=== PATIENT | female | born 1995 | race Caucasian/White ===

== ENCOUNTER 2019-05-01 11:30 | Emergency (ER) | payer BC ==
[~2019-05-01] VITALS: Ht 162.6 cm; Wt 92.5 kg
[~2019-05-01 11:30] MED LIST: MYCOPHENOLIC A180 MG; NAPROSYN500 MG PO; TYLENOL EXTRA500 MG PO
--- OUTSIDE RECORDS SUMMARY | 2019-05-01 11:32 | XMS ---
PreManage Notification: [place] Security Fretted Instrument Maker Hand Events No recent Security Events currently on file CRITERIA MET - [facility] - 2 Visits in 30 Days CARE PROVIDERS JOHN HUTCHINSON Internal Medicine Current PHONE: Unknown [facility] Primary Care Current ADMINISTRATION PHONE: Unknown OUTSIDE PCP Primary Care Current PHONE: Unknown Comfort has no Care Guidelines for this patient. Brittaney VISIT COUNT (12 MO.) [address] [facility] [place] [facility] TOTAL 2 NOTE: Visits indicate total known visits. ED/UCC VISIT TRACKING (12 MO.) 05/01/2019 11:31 [facility] [place] TYPE: Emergency COMPLAINT: - BODY ACHES/BODY PAIN 04/10/2019 08:10 [facility] [place] TYPE: Emergency COMPLAINT: - BODY PAIN/NO INJURY DIAGNOSES: - Allergy status to narcotic agent status - Rheumatoid arthritis, unspecified - Allergy status to sulfonamides status - Allergy status to penicillin - Systemic lupus erythematosus, unspecified - Pain, unspecified - Pain in unspecified joint INPATIENT VISIT TRACKING (12 MO.) No inpatient visits to display in this time frame [email or web address]
[2019-05-01] MEDS ORDERED: PREDNISONE20 MG PO (11:54)
== END 2019-05-01 12:20 | disposition home or self-care (01) ==
LOC: ED 11:30
DX: M19.90 Unspecified osteoarthritis, unspecified site (principal); M32.9 Systemic lupus erythematosus, unspecified; Z88.0 Allergy status to penicillin; Z88.5 Allergy status to narcotic agent; Z88.2 Allergy status to sulfonamides
CPT/HCPCS: 96372; 99283-25; J1885; J7512

== ENCOUNTER 2019-10-07 03:59 | Emergency (ER) | payer BC, OTHER ==
[~2019-10-07] VITALS: Ht 162.6 cm; Wt 92.5 kg
--- OUTSIDE RECORDS SUMMARY | ~2019-10-07 | XMS | Encounter Summary ---
Demographics + + + | Address | [address] | | | [place] [address] | + + + | Home Phone | | + + + | Preferred Language | Unknown | + + + | Marital Status | | + + + | Rastafari Affiliation | Unknown | + + + | Race | Unknown | + + + | Ethnic Group | Unknown | + + + Author + + + | Author | [facility] | | | and [place] | + + + | Organization | [facility] | | | and [place] | + + + | Address | Unknown | + + + | Phone | Unavailable | + + + Support + + +---------+ + | Name | Relationship | Address | Phone | + + +---------+ + | Marco Berman | ECON | Unknown | | + + +---------+ + Care Team Providers + +------+ + | Care Building Services Coordinator Name | Role | Phone | + +------+ + | Eric Bhatti DO | PCP | | + +------+ + Reason for Visit Evaluate & Treat (Routine) +--------+--------+ + + + + | Status | Reason | Specialty | Diagnoses / | Referred By | Referred To | | | | | Procedures | Contact | Contact | +--------+--------+ + + + + | Closed | | | Diagnoses | Magy, | Cristian Wallace | | | | | Glomerular | DO Eric | MD [address] | | | | | disease in | [address] [place] | | | | | systemic | [address] | [address] | | | | | lupus | [address] | [place], [place] | | | | | erythematosu | [place], | [address] | | | | | s ([facility]) | [place] | Phone: | | | | | | [address] | [phone] | | | | | | Phone: | Fax: | | | | | | [phone] | [phone] | | | | | | Fax: | | | | | | | [phone] | | +--------+--------+ + + + + Encounter Details +--------+---------+ + + + | Date | Type | Department | Care Team | Description | +--------+---------+ + + + | 06/30/ | Office | [facility] | Cristian Wallace MD | Lupus nephritis, | | 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 | | | | [address] | [address] [facility] [place] | ([facility]); Persistent | | | | [address] | [address] | proteinuria; | | | | [place], [place] | | Microscopic | | | | [address] | | hematuria; Other | | | | [phone] | | neutropenia ([facility]) | +--------+---------+ + + + Social History + +-------+ [...] + + documented as of this encounter Patient Instructions Patient Instructions Cristian Wallace MD - 06/30/2019 9:50 AM PDTDiscussions/Recommendations : I discussed today with Ms. Berman the meaning of her CKD and the interaction of that with her SLE. She is to call us if they fall outside of the optimal provided range. She will bring he r sphygmomanometer for validation once a year. She will strictly abide by a low salt diet and will avoid all kinds of NSAIDs for analge urbano. Screening/Prevention Recommendations: FLU SHOT: MARTELL PNEUMOVAX: In 08/2019 Tdap: 2013 DERMATOLOGY: SPF 50 or above with every exposure to sun DEXA SCAN: No need now (no fci steroid use) COLONOSCOPY: N/A now DENTIST: every 6 months LEAD OXIDE MILL TENDER/MAMMOGRAM: yearly Also: I decreased her Myfortic to 360 mg twice a day (leucopenia from 9K to 3K now; ANC 1.7). I will consider RAAS blockade soon. She understands the risks of using meds to fetus; she states she will tell us when pregn tj is being considered. I sent her for a repeat CBC in 2 weeks. I sent her for the Flu shot this week. She will continue to F/U with your office regularly. She will have a BMP, CBC, rU/A, UTPCR before she comes back in 3 months. documented in this encounter Progress Notes Cristian Wallace MD - 06/30/2019 9:50 AM PDT There is no problem list on file for this patient. Dear Dr Bhatti: Thank you for the opportunity to see Ms. Berman in consult today. As you are familiar with her case, I will not state her past history in detail. Briefly, she is a 23 y.o. female pat ient with past history as delineated above. she is here to be evaluated for her proteinuria . She was diagnosed with SLE 2010. At that time, she was found to have a severely depressed ( in the stage IV range). She was biopsied: class IV lupus nephritis. Per notes from the Rheum atology team that I reviewed: "Patient had a positive MARCO, anti-DNA, low complement. Symptom s included arthritis, nephritis and cerebritis. Patient tried prednisone, hydroxychloroquine , cyclophisphamide, mycophenolate and rituxan." The patient has history of SLE. she denies any history of prolonged exposure to NSAIDs or r ecent exposure to known nephrotoxins. she denies any recurrent nephrolithiasis or pyelonephr itis. she tells me that she's had no history of urinary retention, gross hematuria or dysuri a. she has no incontinence symptoms. No symptoms of UTI. she has 1 nightly nocturia. No hi story of passing kidney stones. she has no foamy urine either. her baseline Creatinine is 0. 7. There is no family history of renal genetic diseases such as PKD. she says that she feels 'good ' today. she denies any blurred vision tinnitus, headache, f ever, chills, or cough. No nausea, vomiting, abdominal pain, diarrhea, melena, or hematoche deangelo. No chest pain, palpitation, dizziness, loss of consciousness, orthopnea, paroxysmal no cturnal dyspnea, or leg edema. The following portions of the patient's history were reviewed and updated as appropriate: a llergies, current medications, past medical history, past social history, past surgical hist ory, family history and problem list. I also reviewed with her the records received from you r office; these were very informative. As in History of Present Illness & in Assessment. All the twelve systems were reviewed and were otherwise negative. Current Outpatient Medications Medication Sig Dispense Refill cholecalciferol (VITAMIN D-3) 2000 units TABS Take 2,000 Units by mouth Daily. hydroxychloroquine (PLAQUENIL) 200 mg tablet Take by mouth Daily. magnesium, as oxide, 250 MG tablet Take 250 mg by mouth 2 times daily. mycophenolate (MYFORTIC) [address] tablet 360 mg. predniSONE (DELTASONE) 20 mg tablet Take by mouth Daily. pyridoxine (PYRIDOXINE) 100 mg tablet Take by mouth. No current facility-administered medications for this visit. Physical Exam: There were no vitals taken for this visit. General appearance: Pleasant, not in acute distress. Neck: Supple without tracheal deviation or jugular venous distension. Head and ENT: Head is atraumatic. The oropharynx is without erythema or thrush. Eyes: Anicteric. The extraocular muscle movements are normal. Lungs: Clear to auscultation bilaterally. There are no wheezes. Heart: Regular rate and rhythm without any rub, gallop. No murmur. Abdominal exam: Soft and nontender with normal bowel sounds. Musculoskeletal: No costovertebral angle tenderness bilaterally. Extremities: Warm to touch with no leg edema. There is no cyanosis. Skin: There are no rashes, petechiae, or ecchymosis. Neurological: Awake, alert, and oriented to time, place, and person. Normal gross motor po wer. There is no asterixis. Psychiatric: The patient s behavior is normal. Judgment and thought content are normal. Lab Results Component Value Date BUN 9 06/26/2019 NA 141 06/26/2019 K 4.0 06/26/2019 CL 104 06/26/2019 CO2 26 06/26/2019 URICACID 4.6 06/26/2019 CALCIUM 8.9 06/26/2019 ALBUMIN 3.8 05/05/2019 Assessment: Ms. Berman is a 23 y.o. female patient with stage I CKD on a background of SLE. She was bio psied: class IV lupus nephritis. Per notes from the Rheumatology team that I reviewed: "Elinor ent had a positive MARCO, anti-DNA, low complement. Symptoms included arthritis, nephritis and cerebritis. Patient tried prednisone, hydroxychloroquine, cyclophisphamide, mycophenolate a nd rituxan." She has history of lupus nephritis and DIAL MOUNTER lupus. She had a DIAL MOUNTER lupus flare in 2014, improved with a ramped up immunotherapy regimen. She had a lupus flare (arthritis) in 05/2019 improved with a high dose Prednisone course. Had a UTI late May; resolved. RENAL FUNCTION: Normal GFR BLOOD PRESSURE: Reports it normal BLOOD SUGAR: Reports it normal ELECTROLYTES: normal ANEMIA: None. Has leucopenia PARATHYROID HORMONE: No indication to check URIC ACID: okay PROTEINURIA: Mild now. Moderate in 05/2019 URINALYSIS: No UTI now; +ve microscopic hematuria VOLUME STATUS: Euvolumic. Discussions/Recommendations: I discussed today with Ms. Berman the meaning of her CKD and the interaction of that with her SLE. She is to call us if they fall outside of the optimal provided range. She will bring he r sphygmomanometer for validation once a year. She will strictly abide by a low salt diet and will avoid all kinds of NSAIDs for analge urbano. Screening/Prevention Recommendations: FLU SHOT: MARTELL PNEUMOVAX: In 08/2019 Tdap: 2012 DERMATOLOGY: SPF 50 or above with every exposure to sun DEXA SCAN: No need now (no fci steroid use) COLONOSCOPY: N/A now DENTIST: every 6 months LEAD OXIDE MILL TENDER/MAMMOGRAM: yearly Also: I decreased her Myfortic to 360 mg twice a day (leucopenia from 9K to 3K now; ANC 1.7). I will consider RAAS blockade soon. She understands the risks of using some meds to fetus; she states she will tell us when is being considered. I sent her for a repeat CBC in 2 weeks. I sent her for the Flu shot this week. She will continue to F/U with your office regularly. She will have a BMP, CBC, rU/A, UTPCR before she comes back in 3 months. More than 30 minutes of this 60-minute visit was spent in education and counseling. Thank you Dr Bhatti for the opportunity to see this patient in consult today. Please do not hesitate to call me at any time with questions or concerns. Truly yours, Cristian Wallace MD [facility] documented in this enco unter Plan of Treatment +--------+---------+ + + + | Date | Type | Specialty | Care Team | Description | +--------+---------+ + + + | 10/20/ | Office | Rheumatology | Genevieve Hudson | | | 2018 | Visit | | KITTY Hansen [address] | | | | | | [facility] | | | | | | [facility] [address] | | | | | | [phone] | | | | | | | | +--------+---------+ + + + | 11/10/ | Office | Nephrology | Cristian Wallace MD | | | 2019 | Visit | | [address] [facility] | | | | | | [address] [place] | | | | | | [address] | | | | | | | | +--------+---------+ + + + documented as of this encounter Procedures + +--------+ + + + | Procedure Name | Priori | Date/Time | Associated Diagnosis | Comments | | | ty | | | | + +--------+ + + + | LABS - EXTERNAL SCAN | | 06/26/2019 | | Results for this | | | | 12:00 AM | | procedure are in the | | | | PDT | | results section. | + +--------+ + + + documented in this encounter Results LABS - EXTERNAL SCAN (06/26/2019 12:00 AM PDT) + + + | Narrative | Performed At | + + + | Ordered by an | | | unspecified provider. | | + + + documented in this encounter Visit Diagnoses + + | Diagnosis | + + | Lupus nephritis, ISN/RPS class IV (HCC) | + + | Persistent proteinuria Proteinuria | + + | Microscopic hematuria | + + | Other neutropenia (HCC) Other neutropenia | + + documented in this encounter
--- OUTSIDE RECORDS SUMMARY | ~2019-10-07 | XMS | Encounter Summary ---
Demographics + + + | Address | [address] | | | [place] [address] | + + + | Home Phone | | + + + | Preferred Language | Unknown | + + + | Marital Status | | + + + | Cheondoism Affiliation | Unknown | + + + | Race | Unknown | + + + | Ethnic Group | Unknown | + + + Author + + + | Author | [facility] | | | and [place] | + + + | Organization | [facility] | | | [...] Team Providers + +------+ + | Care Assistant Manager Name | Role | Phone | + +------+ + | Eric Bhatti DO | PCP | | + +------+ + Reason for Visit +--------+ + | Reason | Comments | +--------+ + | Pain | | +--------+ + Encounter Details +--------+ + + + + | Date | Type | Department | Care Team | Description | +--------+ + + + + | 09/17/ | Telephone | [facility] | Felipa Stuart, | Pain | | 2019 | | RHEUMATOLOGY [address] | [address] | | | | | [address] | | | | | | [place] | | | | | | [address] | | | | | | [phone] | | | +--------+ + + + + Social History + +-------+ +--------+------+ | Tobacco Use | Types | Packs/Day | Years | Date | | | | | Used | | + +-------+ +--------+------+ | Never Smoker | | | | | + +-------+ +--------+------+ + +---+---+---+ | Smokeless Tobacco: | | | | | Never Used | | | | + +---+---+---+ + + +---------+ + | Alcohol Use | Drinks/Week | oz/Week | Comments | + + +---------+ + | Never | | | | + + +---------+ + + + + + | Alcohol Habits | Answer | Date Recorded | + + + + | How often do you have a drink containing | Never | 07/18/2019 | | alcohol? | | | + + + + | How many drinks containing alcohol do you | Not asked | | | have on a typical day when you are | | | | drinking? | | | + + + + | How often do you have six or more drinks on | Not asked | | | one occasion? | | | + + + + + + + | Sex Assigned at [...] [address] | | | | | | [facility] | | | | | | [place] [address] | | | | | | [phone] | | | | | | | | +--------+---------+ + + + | 11/10/ | Office | Nephrology | Cristian Wallace MD | | | 2019 | Visit | | [address] [facility] | | | | | | [address] [place] | | | | | | [address] | | | | | | | | +--------+---------+ + + + documented as of this encounter Visit Diagnoses Not on filedocumented in this encounter"
--- OUTSIDE RECORDS SUMMARY | ~2019-10-07 | XMS | Encounter Summary ---
Demographics + + + | Address | [address] | | | [place] [address] | + + + | Home Phone | | + + + | Preferred Language | Unknown | + + + | Marital Status | | + + + | Mandaen Affiliation | Unknown | + + + | Race | Unknown | + + + | Ethnic Group | Unknown | + + + Author + + + | Author | [facility] | | | and [place] | + + + | Organization | [facility] | | | and [...] Team Providers + +------+ + | Care Turntable Engineer Name | Role | Phone | + +------+ + | Eric Bhatti DO | PCP | | + +------+ + Reason for Visit +--------+ + | Reason | Comments | +--------+ + | Pain | | +--------+ + Encounter Details +--------+ + + + + | Date | Type | Department | Care Team | Description | +--------+ + + + + | 08/20/ | Telephone | [facility] | Tracie Brizuela, | Pain | | 2019 | | RHEUMATOLOGY [address] | [address] | | | | | [address] | | | | | | [place] | | | | | | [address] | | | | | | [phone] | | | +--------+ + + + [...] W | | | | | | [facility] | | | | | | [place] [address] | | | | | | [phone] | | | | | | | | +--------+---------+ + + + | 11/10/ | Office | Nephrology | Cristian Wallace MD | | | 2019 | Visit | | [address] [facility] | | | | | | [address] [place] | | | | | | [address] | | | | | | | | +--------+---------+ + + + documented as of this encounter Visit Diagnoses Not on filedocumented in this encounter"
--- OUTSIDE RECORDS SUMMARY | ~2019-10-07 | XMS | Encounter Summary ---
Demographics + + + | Address | [address] | | | [place] [address] | + + + | Home Phone | | + + + | Preferred Language | Unknown | + + + | Marital Status | | + + + | Taoist Affiliation | Unknown | + + + | Race | Unknown | + + + | Ethnic Group | Unknown | + + + Author + + + | Author | [facility] | | | and [place] | + + + | Organization | [facility] | | | [...] Team Providers + +------+ + | Care Developmental Specialist Name | Role | Phone | + [...] + + | 06/25/ | Telephone | [facility] | Cristian Wallace MD | Other | | 2019 | | NEPHROLOGY [place] | [address] [place] | | | | | [address] [place] | [address] [place], [place] | | | | | [address] [place], [place] | [address] | | | | | [address] | | | | | | [phone] | | | +--------+ + + + [...] | | | | | | [facility] | | | | | | [place] [address] | | | | | | [phone] | | | | | | | | +--------+---------+ + + + | 11/10/ | Office | Nephrology | Cristian Wallace MD | | | 2019 | Visit | | [address] | | | | | | [facility] | | | | | | [address] | | | | | | | | +--------+---------+ + + + documented as of this encounter Visit Diagnoses Not on filedocumented in this encounter"
--- OUTSIDE RECORDS SUMMARY | ~2019-10-07 | XMS | Encounter Summary ---
Demographics + + + | Address | [address] | | | [place] [address] | + + + | Home Phone | | + + + | Preferred Language | Unknown | + + + | Marital Status | | + + + | Temple Affiliation | Unknown | + + + | Race | Unknown | + + + | Ethnic Group | Unknown | + + + Author + + + | Author | [facility] | | | and [place] | + + + | Organization | [facility] | | [...] Team Providers + +------+ + | Care Emergency Room Doctor Name | Role | Phone | + +------+ + | Eric Bhatti DO | PCP | | + +------+ + Reason for Visit +--------+ + | Reason | Comments | +--------+ + | Other | Urine concerns | +--------+ + Encounter Details +--------+ + + + + | Date | Type | Department | Care Team | Description | +--------+ + + + + | 08/20/ | Telephone | [facility] | Marcial, | Other (Urine | | 2019 | | NEPHROLOGY [place] | Zara Waterman | concerns) | | | | [address] [place] | Vice President [employer] Assurance | | | | | [address] [place], [place] | | | | | | [address] | | | | | | [phone] | | | +--------+ + + + [...] 2018 | Visit | | KITTY Hansen [address] | | | | | | [facility] | | | | | | [place] [address] | | | | | | [phone] | | | | | | | | +--------+---------+ + + + | 11/10/ | Office | Nephrology | Cristian Wallace MD | | | 2019 | Visit | | [address] [facility] | | | | | | [address] [place] | | | | | | [address] | | | | | | | | +--------+---------+ + + + documented as of this encounter Visit Diagnoses Not on filedocumented in this encounter"
--- OUTSIDE RECORDS SUMMARY | ~2019-10-07 | XMS | Encounter Summary ---
Demographics + + + | Address | [address] | | | [place] [address] | + + + | Home Phone | | + + + | Preferred Language | Unknown | + + + | Marital Status | | + + + | Evangelical Affiliation | Unknown | + + + [...] Team Providers + +------+ + | Care Client Support Consultant Name | Role | Phone | + [...] | lupus | [address] | [place] | | | | | erythematosu | [place], | [address] | | | | | s (HCC) | [place] | Phone: | | | | | Glomerular | [address] | [phone] | | | | | disease in | Phone: | Fax: | | | | | systemic | [phone] | [phone] | | | | | lupus | Fax: | | | | | | erythematosu | [phone] | | | | | | s (HCC) | | | + +--------+ + + + + Encounter Details +--------+---------+ + + + | Date | Type | Department | Care Team | Description | +--------+---------+ + + + | 08/25/ | Office | [facility] | Genevieve Hudson | SLE | | 2019 | Visit | R[address]UMATOLOGY [address] | [address] | glomerulonephritis | | | | [address] | [address] | syndrome (HCC) | | | | [place], [place] | [place] [address] | (Primary Dx); High | | | | [address] | [phone] | risk medication use; | | | | [phone] | | General counselling | | | [...] encounter Patient Instructions Patient Instructions Marco Blair, Team Member - 08/25/2019 2:10 PM PDTWe hop e that you have experienced exceptional care today and that you found our service to be cour teous and helpful. If you have any questions or need medication refills you can send us a message/request u [employer] or call our office at [phone]. To reach Zainab RIOS use ext [phone] To reach Marco RIOS use ext [phone] If you are unable to reach a [...] can also look at your results on [employer]. If you are experiencing an emergency, please [...] in 2011 in [place] then transferred to [facility] for [facility] . PT reports in middle school both [...] September 2013, when she established care at [facility], both CellCept and HCQ were restarted [...] SEDRATE Imaging: Laboratory results were reviewed in [facility] as well as chart notes and imaging [...] e YES Immunologic disorders Anti-DNA Antibody to [place] DNA in abnormal titer [place] Anti-Sm Presence [...] uremia, and Susie's syndrome YES Renal Urine fjeouei-ei-xafnjpjnns ratio (or 24-hour urine protein) representing 500 [...] treatment plan. Patient understands that treatment is intermediate and if patient fails to continue regimen [...] is both accurate and complete. Dictation software [employer]/dictation services used, which may contain error for [...] 2018 | Visit | | KITTY Hansen [address] | | | | | | [facility] | | | | | | [place] [address] | | | | | | [phone] | | | | | | | | +--------+---------+ + + + | 11/10/ | Office | Nephrology | Cristian Wallcae MD | | | 2019 | Visit | | [address] [facility] | | | | | | [address] [place], [place] | | | | | | [address] | | | | | | | [...]
--- OUTSIDE RECORDS SUMMARY | ~2019-10-07 | XMS | Encounter Summary ---
Demographics + + + | Address | [address] | | | [place] [address] | + + + | Home Phone | | + + + | Preferred Language | Unknown | + + + | Marital Status | | + + + | Methodist Affiliation | Unknown | + + + | Race | Unknown | + + + | Ethnic Group | Unknown | + + + Author + + + | Author | [facility] | | | and [place] | + + + | Organization | [facility] | | | and [...] Team Providers + +------+ + | Care Home Attendant Name | Role | Phone | + +------+ + | Eric Bhatti DO | PCP | | + +------+ + Encounter Details +--------+---------+ + + + | Date | Type | Department | Care Team | Description | +--------+---------+ + + + | 10/06/ | Office | [facility] | Cristian Wallace MD | SLE | | 2019 | Visit | NEPHROLOGY [place] | [address] [facility] [address] | glomerulonephritis | | | | [address] | [address] [place], [place] | syndrome (HCC) | | | | [address] | [address] | (Primary Dx); | | | | [place], [place] | | Systemic lupus | | | | [address] | | erythematosus with | | | | [phone] | | tubulo-interstitial | | | | | | nephropathy, | | | | | | unspecified SLE type | | | | | | (HCC); Microscopic | | | | | | hematuria; | | | | | | Persistent | | | | | | proteinuria; 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HCC); | | | | | | High risk medication | | | | | | use; | | | | | | Immunosuppressed | | | | | | status (HCC); | | | | | | 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 | | | | | | (HCC); General | | | | | | counselling and | | | | | | advice on | | | | | | contraception | +--------+---------+ + + + Social History [...] + + + | Blood Pressure | 102/70 | 10/06/2019 9:57 AM | | | | | PST | | + + + + + | Pulse | 98 | 10/06/2019 9:57 AM | | | | | PST | | + + + + + | Temperature | - | - | | + + + + + | Respiratory Rate | - | - | | + + + + + | Oxygen Saturation | 98% | 10/06/2019 9:57 AM | | | | | PST | | + + + + + | Inhaled Oxygen | - | - | | | Concentration | | | | + + + + + | Weight | 86 kg (189 lb 11.2 | 10/06/2019 9:57 AM | | | | oz) | PST | | + + + + + | Height | 165.1 cm (5' 5") | 10/06/2019 9:57 AM | | | | | PST | | + + + + + | Body Mass Index | 31.57 | 10/06/2019 9:57 AM | | | | | PST | | + + + + + documented in this encounter Patient Instructions Patient Instructions Cristian Wallace MD - 10/06/2019 10:00 AM PSTScreening/Prevention Recomm endations: FLU SHOT: MARTELL PNEUMOVAX: MARTELL Tdap: 2013 DERMATOLOGY: SPF 50 or above with every exposure to sun DEXA SCAN: No need now (no detention steroid use yet) COLONOSCOPY: N/A now DENTIST: every 6 months LIBRARY CIRCULATION CLERK/MAMMOGRAM: yearly Also: I stopped her Naproxen. I sent her a repeat C3, C4, CH50, lipids, UTPCR in AM. I sent her for a repeat BMP, CBC in 1 week. [If she's not going to require another kidney biopsy, I plan to have her on: Methylprednisolone 500 mg IV over 30 minutes x3 days Then Prednisone 60 mg daily to be tapered very slowly over many months Cyclophosphamide 500 mg IV every 2 weeks x6 weeks (she had used it in 2010 & understands its side effects)] I kept her Myfortic at 360 mg twice a day for now (leucopenia from 9K to 3K in 06/2019, ANC was 1.7). she will need to be off of it during the Cyclophosphamide course. I started her on Losartan 25 mg daily for now. She will have a repeat BMP within 1 week to specifically F/U on her potassium level & GFR. She understands well that such a medication m ay temporarily lower the GFR by up to 30% after starting it. She understands the risks of hy potension, hyperkalemia & hemodynamic renal injury from its use. She also understands the ri sks of using RAAS blockers, like Losartan, in the setting of volume depletion. She understands the risks of using the above meds to fetus; she states she will tell us when is being considered. I sent her for the Flu & Pneumovax shots MARTELL. She will F/U with your office regularly. She will have a BMP, CBC, C3, C4, rU/A, UTPCR before she comes back in 1 month. 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 Berman in the office today. As you are familiar with her case, I january l not state her past history in detail. Briefly, she is a 23 y.o. female patient with past history as delineated above. she is here to F/U on her proteinuria. She was diagnosed with SLE 2010. At that time, she was found to have a severely depressed G FR (in the stage IV range, she tells me). She was biopsied: class IV lupus nephritis. Per no misael from the Rheumatology team that I reviewed: "Patient had a positive MARCO, anti-DNA, low c omplement. Symptoms included arthritis, nephritis and cerebritis. Patient tried prednisone, hydroxychloroquine, cyclophisphamide, mycophenolate and rituxan." The patient has history of SLE; she denies any history of prolonged exposure to NSAIDs or r ecent exposure to known nephrotoxins. she denies any recurrent nephrolithiasis or pyelonephr itis; she tells me that she's had no [...] she says that she feels 'good ' today; she denies any blurred vision tinnitus, headache, [...] hist ory, family history and problem list. As in History of Present Illness & in Assessment. All the pertinent systems were reviewed a nd were otherwise negative. Current Outpatient Medications: cholecalciferol (VITAMIN D-3) 2000 units TABS, Take 2,000 Units by mouth Daily., Disp: , Rfl: Cyanocobalamin (VITAMIN B 12 PO), Take by mouth., Disp: , Rfl: hydroxychloroquine (PLAQUENIL) 200 mg tablet, Take 1 tablet by mouth 2 times daily., D isp: 60 tablet, Rfl: 2 magnesium, as oxide, 250 MG tablet, Take 250 mg by mouth 2 times daily., Disp: , Rfl: mycophenolate (MYFORTIC) [address] tablet, Take 1 tablet by mouth 2 times daily., Disp : 60 tablet, Rfl: 2 naproxen (NAPROSYN) 500 mg tablet, Take 500 mg by mouth 2 times daily (with breakfast & dinner)., Disp: , Rfl: predniSONE (DELTASONE) 5 mg 21-tablet pack, Take 2 tabs x 7 days, take 1 tab x 7 days, Disp: 21 tablet, Rfl: 0 Physical Exam: BP 102/70 | Pulse 98 | Ht 1.651 m (5' 5") | Wt 86 kg (189 lb 11.2 oz) | SpO2 98% | BMI 31.57 kg/m General appearance: Pleasant, not in acute distress. [...] are normal. Lab Results Component Value Date HGB 11.5 (A) 10/01/2019 HGB 13.2 07/21/2019 HCT 39.4 07/21/2019 NA 141 10/01/2019 K 4.0 10/01/2019 CL 106 10/01/2019 CO2 28 10/01/2019 BUN 14 10/01/2019 CREA 0.79 10/01/2019 CREA 0.67 06/26/2019 CALCIUM 7.8 (A) 10/01/2019 CALCIUM 8.7 07/21/2019 ALBUMIN 3.6 07/21/2019 EGFR 89.0 10/01/2019 LABPROT 5,625.4 (A) 10/01/2019 Assessment: Ms. Berman is a 23 y.o. female patient with stage I CKD on a background of SLE. She was bio psied in 2010: class IV lupus nephritis. Per notes from the Rheumatology team that I reviewe d: "Patient had a positive MARCO, anti-DNA, low complement. Symptoms included arthritis, nephr itis and cerebritis. 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 She had a lupus flare (arthritis) in 05/2019 improved with a high dose Prednisone course. Had a UTI late May; resolved. RENAL FUNCTION: Normal GFR BLOOD PRESSURE: Reports it normal BLOOD SUGAR: Reports it normal ELECTROLYTES: normal ANEMIA: None. Has leucopenia PARATHYROID HORMONE: No indication to check URIC ACID: okay PROTEINURIA: Mild in 06/2019. Moderate in 05/2019. Now severe: in the nephrotic range. URINALYSIS: No UTI now; +ve microscopic hematuria VOLUME STATUS: Euvolumic. Discussions/Recommendations: I discussed today with Ms. Berman the meaning of her CKD and the interaction of that with her SLE. She is to call us if they fall outside of the optimal provided range. She will bring he r sphygmomanometer for validation once a year. She will strictly abide by a low salt diet. She will avoid all kinds of NSAIDs for analgesia. Screening/Prevention Recommendations: FLU SHOT: MARTELL PNEUMOVAX: MARTELL Tdap: 2012 DERMATOLOGY: SPF 50 or above with every exposure to sun DEXA SCAN: No need now (no detention steroid use yet) COLONOSCOPY: N/A now DENTIST: every 6 months LIBRARY CIRCULATION CLERK/MAMMOGRAM: yearly Also: I stopped her Naproxen. I sent her a repeat C3, C4, CH50, lipids, UTPCR in AM. I sent her for a repeat BMP, CBC in 1 week. [If she's not going to require another kidney biopsy, I plan to have her on: Methylprednisolone 500 mg IV over 30 minutes x3 days Then Prednisone 60 mg daily to be tapered very slowly over many months Cyclophosphamide 500 mg IV every 2 weeks x6 weeks (she had used it in 2010 & understands its side effects)] I kept her Myfortic at 360 mg twice a day for now (leucopenia from 9K to 3K in 06/2019, ANC was 1.7). she will need to be off of it during the Cyclophosphamide course. I started her on Losartan 25 mg daily for now. She will have a repeat BMP within 1 week to specifically F/U on her potassium level & GFR. She understands well that such a medication m ay temporarily lower the GFR by up to 30% after starting it. She understands the risks of hy potension, hyperkalemia & hemodynamic renal injury from its use. She also understands the ri sks of using RAAS blockers, like Losartan, in the setting of volume depletion. She understands the risks of using the above meds to fetus; she states she will tell us when is being considered. I sent her for the Flu & Pneumovax shots MARTELL. She will F/U with your office regularly. She will have a BMP, CBC, C3, C4, rU/A, UTPCR before she comes back in 1 month. More than 20 minutes of this 40-minute visit was spent in education and counseling. Thank you Dr Bhatti for the opportunity to see this patient in F/U today. Please do not hes itate to call me at any time with questions or concerns. Truly yours, Cristian Wallace MD FACP LUDY GRICELDA documented in this enco unter Plan of Treatment +--------+---------+ + + + | Date | Type | Specialty | Care Team | Description | +--------+---------+ + + + | 10/20/ | Office | Rheumatology | Genevieve Hudson | | | 2018 | Visit | | KITTY [address] | | | | | | [facility] | | | | | | [place] [address] | | | | | | [phone] | | | | | | | | +--------+---------+ + + + | 11/10/ | Office | Nephrology | Cristian Wallace MD | | | 2019 | Visit | | [address] [facility] | | | | | | [address] [place], [place] | | | | | | [address] | | | | | | | | +--------+---------+ + + + documented as of this encounter Visit Diagnoses + + | Diagnosis | + + | SLE glomerulonephritis syndrome (HCC) - Primary Systemic lupus erythematosus | + + | 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
--- OUTSIDE RECORDS SUMMARY | ~2019-10-07 | XMS | Encounter Summary ---
Demographics + + + | Address | [address] | | | [place] [address] | + + + | Home Phone | | + + + | Preferred Language | Unknown | + + + | Marital Status | | + + + | Yazidism Affiliation | Unknown | + + + | Race | Unknown | + + + | Ethnic Group | Unknown | + + + Author + + + | Author | [facility] | | | and [place] | + + + | Organization | [facility] | | [...] Team Providers + +------+ + | Care Drum Handler Name | Role | Phone | + [...] + + | 09/17/ | Telephone | [facility] | Felipa Stuart, | Pain | | 2019 | | R[address]UMATOLOGY [address] | [address] | | | | | [address] | | | | | | [place] | | | | | | [address] | | | | | | [phone] | | | +--------+ + + + [...] HOSPITAL | | | | | | [place] [address] | | | | | | [phone] | | | | | | | | +--------+---------+ + + + | 11/10/ | Office | Nephrology | Cristian Wallace MD | | | 2019 | Visit | | [address] [facility] | | | | | | [address] [place] | | | | | | [address] | | | | | | | | +--------+---------+ + + + documented as of this encounter Visit Diagnoses Not on filedocumented in this encounter"
--- OUTSIDE RECORDS SUMMARY | ~2019-10-07 | XMS | Encounter Summary ---
Demographics + + + | Address | [address] | | | [place] [address] | + + + | Home Phone | | + + + | Preferred Language | Unknown | + + + | Marital Status | | + + + | Confucianism Affiliation | Unknown | + + + | Race | Unknown | + + + | Ethnic Group | Unknown | + + + Author + + + | Author | [facility] | | | and [place] | + + + | Organization | [facility] | | | [...] Team Providers + +------+ + | Care Escrow Representative Name | Role | Phone | + +------+ + | Eric Bhatti DO | PCP | | + +------+ + Encounter Details +--------+ + + + + | Date | Type | Department | Care Team | Description | +--------+ + + + + | 06/24/ | Orders Only | [facility] | Cristian Wallace MD | Proteinuria, | | 2018 | | [facility] [place] | [address] [place] | unspecified type | | | | [address] [place] | [address] [place], [place] | (Primary Dx); Lupus | | | | [address] [place], [place] | [address] | nephritis (HCC) | | | | [address] | | | | | | [phone] | | | +--------+ + + + + Social History + +-------+ +--------+------+ | Tobacco Use | Types | Packs/Day | Years | Date | | | | | Used | | + +-------+ +--------+------+ | Never Assessed | | | | | + +-------+ [...] | | | | | | [facility] | | | | | | [place] [address] | | | | | | [phone] | | | | | | | | +--------+---------+ + + + | 11/10/ | Office | Nephrology | Cristian Wallace MD | | | 2019 | Visit | | [address] [facility] | | | | | | [address] [place] | | | | | | [address] | | | | | | | | +--------+---------+ + + + + +------+--------+ + + | Name | Type | Priori | Associated Diagnoses | Order Schedule | | | | ty | | | + +------+--------+ + + | Basic Metabolic | Lab | Routin | Proteinuria, | Expected: | | Panel | | e | unspecified type | 06/25/2019, Expires: | | | | | Lupus nephritis | 06/24/2020 | | | | | (HCC) | | + +------+--------+ + + | CBC w/ Auto | Lab | Routin | Proteinuria, | Expected: | | Differential | | e | unspecified type | 06/25/2019, Expires: | | | | | Lupus nephritis | 06/24/2020 | | | | | (HCC) | | + +------+--------+ + + | Protein/Creatinine | Lab | Routin | Proteinuria, | Expected: | | Ratio, Urine | | e | unspecified type | 06/25/2019, Expires: | | | | | Lupus nephritis | 06/24/2020 | | | | | (HCC) | | + +------+--------+ + + | Uric Acid | Lab | Routin | Proteinuria, | Expected: | | | | e | unspecified type | 06/25/2019, Expires: | | | | | Lupus nephritis | 06/24/2020 | | | | | (HCC) | | + +------+--------+ + + | Urinalysis With | Lab | Routin | Proteinuria, | Expected: | | Microscopic | | e | unspecified type | 06/25/2019, Expires: | | | | | Lupus nephritis | 06/24/2020 | | | | | (HCC) | | + +------+--------+ + + documented as of this encounter Visit Diagnoses + + | Diagnosis | + + | Proteinuria, unspecified type - Primary | + + | Lupus nephritis (HCC) Systemic lupus erythematosus | + + documented in this encounter"
--- OUTSIDE RECORDS SUMMARY | ~2019-10-07 | XMS | Encounter Summary ---
Demographics + + + | Address | [address] | | | [place] [address] | + + + | Home Phone | | + + + | Preferred Language | Unknown | + + + | Marital Status | | + + + | Evangelical Affiliation | Unknown | + + + | Race | Unknown | + + + | Ethnic Group | Unknown | + + + Author + + + | Author | [facility] | | | and [place] | + + + | Organization | [facility] | | | [...] Team Providers + +------+ + | Care Flanging Roll Operator Name | Role | Phone | + +------+ + | Eric Bhatti DO | PCP | | + +------+ + Encounter Details +--------+ + + + + | Date | Type | Department | Care Team | Description | +--------+ + + + + | 06/25/ | Documentati | [facility] | Marcial, | | | 2019 | on | NEPHROLOGY [place] | aZra Waterman | | | | | [address] | [facility] | | | | | [address] [place] | | | | | | [address] | | | | | | [phone] | | | +--------+ + + + [...] Rheumatology | Genevieve Hudson | | | 2019 | Visit | | [address] [address] | | | | | | [facility] | | | | | | [place] [address] | | | | | | [phone] | | | | | | | | +--------+---------+ + + + | 11/10/ | Office | Nephrology | Cristian Wallace MD | | | 2019 | Visit | | [address] [facility] | | | | | | [address] [facility], [place] | | | | | | [address] | | | | | | | | +--------+---------+ + + + documented as of this encounter Procedures + +--------+ + + + | Procedure Name | Priori | Date/Time | Associated Diagnosis | Comments | | | ty | | | | + +--------+ + + + | COMPREHENSIVE | Routin | 05/05/2019 | | Results for this | | METABOLIC PANEL | e | 3:28 AM | | procedure are in the | | | | PDT | | results section. | + +--------+ + + + | ZZESR | Routin | 05/05/2019 | | Results for this | | | e | 2:21 AM | | procedure are in the | | | | PDT | | results section. | + +--------+ + + + | CBC W/AUTO | Routin | 05/05/2019 | | Results for this | | DIFFERENTIAL | e | 1:26 AM | | procedure are in the | | | | PDT | | results section. | + +--------+ + + + | URINALYSIS | Routin | 05/05/2019 | | Results for this | | | e | | | procedure are in the | | | | | | results section. | + +--------+ + + + | COMPLEMENT C3 AG | Routin | 05/05/2019 | | Results for this | | | e | | | procedure are in the | | | | | | results section. | + +--------+ + + + | COMPLEMENT C4 AG | Routin | 05/05/2019 | | Results for this | | | e | | | procedure are in the | | | | | | results section. | + +--------+ + + + | TSH AND FREE T4 | Routin | 04/25/2019 | | Results for this | | | e | | | procedure are in the | | | | | | results section. | + +--------+ + + + | CBC W/AUTO | Routin | 04/25/2019 | | Results for this | | DIFFERENTIAL | e | | | procedure are in the | | | | | | results section. | + +--------+ + + + | COMPREHENSIVE | Routin | 04/25/2019 | | Results for this | | METABOLIC PANEL | e | | | procedure are in the | | | | | | results section. | + +--------+ + + + documented in this encounter Results Comprehensive Metabolic Panel (05/05/2019 3:28 AM PDT) + +--------+ + + + | Component | Value | Ref Range | Performed | Pathologist | | | | | At | Signature | + +--------+ + + + | Na | 135 | 135 - 145 | | | | | | mmol/L | | | + +--------+ + + + | K | 4.2 | 3.6 - 5.2 | | | | | | mmol/L | | | + +--------+ + + + | Cl | 102 | 98 - 107 mmol/L | | | + +--------+ + + + | CO2 | 28 | 22 - 32 mmol/L | | | + +--------+ + + + | Anion Gap | 5 | 4 - 12 mmol/L | | | + +--------+ + + + | Glucose | 95 | 62 - 125 mg/dL | | | + +--------+ + + + | BUN | 17 | 8 - 21 mg/dL | | | + +--------+ + + + | CREA | 0.70 | 0.38 - 1.02 | | | | | | mg/dL | | | + +--------+ + + + | PROTEIN | 7.7 | 6.0 - 8.2 | | | | (CALC) | | mg/24hrs | | | + +--------+ + + + | Albumin | 3.8 | 3.5 - 5.2 g/dL | | | + +--------+ + + + | Bilirubin | 0.3 | 0.2 - 1.3 mg/dL | | | | Total | | | | | + +--------+ + + + | Calcium | 9.0 | 8.9 - 10.2 | | | + +--------+ + + + | AST | 46 (A) | 9 - 38 U/L | | | + +--------+ + + + | Alkaline | 71 | 26 - 98 U/L | | | | Phosphatase | | | | | + +--------+ + + + | ALT | 90 (A) | 7 - 33 U/L | | | + +--------+ + + + | GFR | 60 | 60 - 140 | | | | ESTIMATE | | | | | + +--------+ + + + + + | Specimen | + + | Blood | + + ESR (05/05/2019 2:21 AM PDT) + +--------+ + + + | Component | Value | Ref Range | Performed | Pathologist | | | | | At | Signature | + +--------+ + + + | ESR | 32 (A) | 0 - 20 mm/hr | | | + +--------+ + + + + + | Specimen | + + | Blood | + + CBC w/ Auto Differential (05/05/2019 1:26 AM PDT) + + + + + + | Component | Value | Ref Range | Performed | Pathologist | | | | | At | Signature | + + + + + + | WBC | 9.07 | 4.3 - 10.0 | | | + + + + + + | RBC COUNT | 4 | 4 - 5 | | | + + + + + + | Hemoglobin | 12.7 | 11.5 - 15.5 | | | + + + + + + | Hematocrit, | 39 | 36 - 45 | | | | BF | | | | | + + + + + + | MCV | 91 | 81 - 98 | | | + + + + + + | MCH | 30.0 | 27.3 - 33.6 | | | + + + + + + | MCHC, POC | 33.0 | 32.2 - 36.5 | | | + + + + + + | Platelet | 327 | 150 - 400 | | | | Count | | | | | | Plasma | | | | | + + + + + + | RDW | 11.5 (A) | 11.6 - 14.4 | | | + + + + + + | NEUTROPHILS | 85 | % | | | | BL | | | | | + + + + + + | LYMPHOCYTES | 9 | % | | | | BL | | | | | + + + + + + | MONOCYTES | 5 | | | | | BAL | | | | | + + + + + + | EOSINOPHILS | 0 | % | | | | BL | | | | | + + + + + + | BASOPHILS | 0 | | | | | BAL | | | | | + + + + + + + + | Specimen | + + | Blood | + + Complement C3 Ag (05/05/2019) + +--------+ + + + | Component | Value | Ref Range | Performed | Pathologist | | | | | At | Signature | + +--------+ + + + | C3 | 64 (A) | 87 - 200 | | | | (Propionyl) | | | | | + +--------+ + + + + + | Specimen | + + | Blood | + + Complement C4 Ag (05/05/2019) + +-------+ + + + | Component | Value | Ref Range | Performed | Pathologist | | | | | At | Signature | + +-------+ + + + | C4 | 8 (A) | 13 - 50 | | | | (Butyryl/Is | | | | | | obutyryl) | | | | | + +-------+ + + + + + | Specimen | + + | Blood | + + Urinalysis (05/05/2019) + + + + + + | Component | Value | Ref Range | Performed | Pathologist | | | | | At | Signature | + + + + + + | Color | Yellow | | | | + + + + + + | Clarity | Clear | | | | + + + + + + | Specific | 1.012 | 1.005 - 1.030 | | | | [place] QC | | | | | + + + + + + | pH, Urine | 6.0 | 5.0 - 8.0 | | | + + + + + + | Protein, | 2+ (A) | Negative | | | | [...] + + + + + + | OCCULT | 3+ | | | | | BLOOD OTHER | | | | | + + + + + + | Nitrite, | Negative | Negative | | | | Urine | | | | | + + + + + + | Leukocyte | Positive (A) | Negative | | | | [...] + + + + | WBC | Comment: 11-20 | | | | + + + + + + | RBC COUNT | Comment: 11-20 | | | | + + + + + + | Bacteria, | Comment: Positive | None Seen, 1-5, | | | | UA | | Occasional | | | + + + + + + | Epithelial | | | | | | Cells | | | | | + + + + + + | CRYSTAL UA | Trace | | | | + + + + + + + + | Specimen | + + | Urine | + + Comprehensive Metabolic Panel (04/25/2019) + + + + + + | Component | Value | Ref Range | Performed | Pathologist | | | | | At | Signature | + + + + + + | Na | 137 | 132 - 143 | | | | | | mmol/L | | | + + + + + + | K | 4.0 | 3.6 - 5.1 | | | | | | mmol/L | | | + + + + + + | Cl | 104 | 95 - 112 mmol/L | | | + + + + + + | CO2 | 25 | 19 - 31 mmol/L | | | + + + + + + | Anion Gap | 12 | 7 - 21 mmol/L | | | + + + + + + | Glucose | 91 | 70 - 100 mg/dL | | | + + + + + + | BUN | 16 (A) | 70 - 100 mg/dL | | | + + + + + + | CREA | 0.58 (A) | 0.60 - 1.36 | | | | | | mg/dL | | | + + + + + + | GFR | 120 | 60 - 140 | | | | ESTIMATE | | | | | + + + + + + | BUN/Creatin | 27.6 | 6.0 - 28.6 | | | | ine Ratio | | | | | + + + + + + | Calcium | 8.9 | 8.5 - 10.3 | | | + + + + + + | AST | 65 (A) | 13 - 29 U/L | | | + + + + + + | ALT | 103 (A) | 7 - 52 U/L | | | + + + + + + | Alkaline | 66 | 31 - 130 U/L | | | | Phosphatase | | | | | + + + + + + | Bilirubin | 0.3 | 0.0 - 1.2 mg/dL | | | | Total | | | | | + + + + + + | PROTEIN | 7.4 | 6.0 - 8.3 | | | | (CALC) | | mg/24hrs | | | + + + + + + | Albumin | 3.6 | 3.5 - 5.0 g/dL | | | + + + + + + | Globulin | 3.8 (A) | 1.8 - 3.5 | | | + + + + + + | Albumin/Gin | 0.9 (A) | 1.1 - 2.4 | | | | bulin Ratio | | | | | + + + + + + + + | Specimen | + + | Blood | + + TSH and Free T4 (04/25/2019) + + + + + + | Component | Value | Ref Range | Performed | Pathologist | | | | | At | Signature | + + + + + + | TSH+Free T4 | 0.029 (A) | 0.270 - 4.20 | | | + + + + + + + + | Specimen | + + | Blood | + + CBC w/ Auto Differential (04/25/2019) + + + + + + | Component | Value | Ref Range | Performed | Pathologist | | | | | At | Signature | + + + + + + | WBC | 4.3 (A) | 4.5 - 11.0 | | | + + + + + + | RBC: | 4.12 | 3.8 - 5.1 | | | + + + + + + | Hemoglobin | 12.5 | 12.0 - 16.0 | | | + + + + + + | Hematocrit, | 37.0 | 35 - 45 | | | | BF | | | | | + + + + + + | MCV | 89.8 | 81 - 99 | | | + + + + + + | RDW | 12.2 | 10.5 - 15.0 | | | + + + + + + | MCH | 30 | 27 - 33 | | | + + + + + + | MCHC, POC | 34 | 30 - 36 | | | + + + + + + | Platelet | 235 | 140 - 440 | | | | Count | | | | | | Plasma | | | | | + + + + + + | NEUTROPHILS | 72.8 | 39 - 80 % | | | | BL | | | | | + + + + + + | LYMPHOCYTES | 17.3 (A) | 24 - 44 % | | | | BL | | | | | + + + + + + | MONOCYTES | 8.1 | 0 - 12 | | | | BAL | | | | | + + + + + + | EOSINOPHILS | 1.6 | 0 - 6 % | | | | BL | | | | | + + + + + + | BASOPHILS | 0.2 | 0 - 2 | | | | BAL | | | | | + + + + + + + + | Specimen | + + | Blood | + + documented in this encounter Visit Diagnoses Not on filedocumented in this encounter"
--- OUTSIDE RECORDS SUMMARY | ~2019-10-07 | XMS | Encounter Summary ---
Demographics + + + | Address | [address] | | | [place] [address] | + + + | Home Phone | | + + + | Preferred Language | Unknown | + + + | Marital Status | | + + + | Presybeterian Affiliation | Unknown | + + + | Race | Unknown | + + + | Ethnic Group | Unknown | + + + Author + + + | Author | [facility] | | | and [place] | + + + | Organization | [facility] | | [...] Team Providers + +------+ + | Care Barrel Charrer Name | Role | Phone | + +------+ + | Eric Bhatti DO | PCP | | + +------+ + Reason for Visit +---------+ + | Reason | Comments | +---------+ + | Results | 06/26/19 | +---------+ + Encounter Details +--------+ + + + + | Date | Type | Department | Care Team | Description | +--------+ + + + + | 06/30/ | Documentati | [facility] | Marcial, | Results (06/26/19) | | 2019 | on | NEPHROLOGY [place] | [facility] | | | | | [address] | [employer] | | | | | [address] | | | | | | [place] | | | | | | [address] | | | | | | [phone] | | | +--------+ + + + [...] W | | | | | | [facility] | | | | | | [place] [address] | | | | | | [phone] | | | | | | | | +--------+---------+ + + + | 11/10/ | Office | Nephrology | Cristian Wallace MD | | | 2019 | Visit | | [address] [facility] | | | | | | [address] [place] | | | | | | [address] | | | | | | | | +--------+---------+ + + + documented as of this encounter Procedures + +--------+ + + + | Procedure Name | Priori | Date/Time | Associated Diagnosis | Comments | | | ty | | | | + +--------+ + + + | CBC W/AUTO | Routin | 06/26/2019 | | Results for this | | DIFFERENTIAL | e | 6:45 AM | | procedure are in the | | | | PDT | | results section. | + +--------+ + + + | URIC ACID | Routin | 06/26/2019 | | Results for this | | | e | 6:45 AM | | procedure are in the | | | | PDT | | results section. | + +--------+ + + + | BASIC METABOLIC | Routin | 06/26/2019 | | Results for this | | PANEL | e | 6:45 AM | | procedure are in the | | | | PDT | | results section. | + +--------+ + + + | EXTERNAL LAB: | Routin | 06/23/2019 | | Results for this | | PROTEIN/CREATININE | e | 1:25 PM | | procedure are in the | | RATIO | | PDT | | results section. | + +--------+ + + + | URINALYSIS | Routin | 06/23/2019 | | Results for this | | | e | 1:25 PM | | procedure are in the | | | | PDT | | results section. | + +--------+ + + + documented in this encounter Results Uric Acid (06/26/2019 6:45 AM PDT) + +-------+ + + + | Component | Value | Ref Range | Performed | Pathologist | | | | | At | Signature | + +-------+ + + + | URIC ACID | 4.6 | 2.3 - 6.6 | | | | (REF) | | | | | + +-------+ + + + + + | Specimen | + + | Blood | + + Basic Metabolic Panel (06/26/2019 6:45 AM PDT) + +--------+ + + + | Component | Value | Ref Range | Performed | Pathologist | | | | | At | Signature | + +--------+ + + + | Na | 141 | 132 - 143 | | | | | | mmol/L | | | + +--------+ + + + | K | 4.0 | 3.6 - 5.1 | | | | | | mmol/L | | | + +--------+ + + + | Cl | 104 | 95 - 112 mmol/L | | | + +--------+ + + + | CO2 | 26 | 19 - 31 mmol/L | | | + +--------+ + + + | Anion Gap | 15 | 7 - 21 mmol/L | | | + +--------+ + + + | Glucose | 52 (A) | 70 - 100 mg/dL | | | + +--------+ + + + | Calcium | 8.9 | 8.5 - 10.3 | | | + +--------+ + + + | BUN | 9 | 6 - 23 mg/dL | | | + +--------+ + + + | CREA | 0.67 | 0.60 - 1.35 | | | | | | mg/dL | | | + +--------+ + + + | GFR | 108 | 60 - 140 | | | | ESTIMATE | | | | | + +--------+ + + + | BUN/Creatin | 13.4 | 6.0 - 28.6 | | | | ine Ratio | | | | | + +--------+ + + + + + | Specimen | + + | Blood | + + CBC w/ Auto Differential (06/26/2019 6:45 AM PDT) + + + + + + | Component | Value | Ref Range | Performed | Pathologist | | | | | At | Signature | + + + + + + | WBC | 3.0 (A) | 4.5 - 11.0 | | | + + + + + + | RBC COUNT | 4 | 4 - 5 | | | + + + + + + | Hemoglobin | 12.8 | 12.0 - 16.0 | | | + + + + + + | Hematocrit, | 37.7 | 35 - 45 | | | | BF | | | | | + + + + + + | Platelet | 253 | 140 - 440 | | | | Count | | | | | | Plasma | | | | | + + + + + + | NEUTROPHILS | 56.7 | 39 - 80 % | | | | BL | | | | | + + + + + + | LYMPHOCYTES | 28.8 | 24 - 44 % | | | | BL | | | | | + + + + + + | MONOCYTES | 13.4 (A) | 0 - 12 | | | | BAL | | | | | + + + + + + | MCV | 91.7 | 81 - 99 | | | + + + + + + | RDW | 13.1 | 10.5 - 15.0 | | | + + + + + + | MCH | 31 | 27 - 33 | | | + + + + + + | MCHC, POC | 34 | 30 - 36 | | | + + + + + + | EOSINOPHILS | 0.8 | 0 - 6 % | | | | BL | | | | | + + + + + + | BASOPHILS | 0.3 | 0 - 2 | | | | BAL | | | | | + + + + + + + + | Specimen | + + | Blood | + + External Lab: Protein/Creatinine Ratio (06/23/2019 1:25 PM PDT) + + + + + + | Component | Value | Ref Range | Performed | Pathologist | | | | | At | Signature | + + + + + + | Protein/Cre | 378.9 (A) | 0 - 150 | | | | atinine | | | | | | Ratio, | | | | | | External | | | | | + + + + + + + + | Specimen | + + | | + + Urinalysis (06/23/2019 1:25 PM PDT) + + + + + + | Component | Value | Ref Range | Performed | Pathologist | | | | | At | Signature | + + + + + + | Color | Corazon | | | | + + + + + + | Clarity | Slightly Cloudy | | | | + + + + + + | Specific | 1.026 | 1.005 - 1.030 | | | | [place] | | | | | + + + + + + | pH, Urine | 7.0 | 5.0 - 8.0 | | | + + + + + + | Protein, | 100 mg/dL (A) | Negative | | | | Urine | | | | | + + + + + + | Glucose, | Negative | Negative | | | | Urine | | | | | + + + + + + | Ketone | Negative | | | | | Bodies, | | | | | | Serum | | | | | + + + + + + | Bilirubin | 0.0 | mg/dL | | | | Total | | | | | + + + + + + | Blood, | Negative | Negative | | | | Urine | | | | | + + + + + + | Nitrite, | Negative | Negative | | | | Urine | | | | | + + + + + + | Urobilinoge | Negative | 0.2, Negative, | | | | n, UA, POC | | Normal, < 0.2 | | | | | | mg/dL, 1 mg/dL, | | | | | | < 0.2 E.U./dl, | | | | | | 1.0 E.U./dL, | | | | | | 0.2 mg/dL | | | + + + + + + | Leukocyte | Negative | Negative | | | | Esterase, | | | | | | Urine | | | | | + + + + + + | CASTS | Negative | | | | + + + + + + | WBC UA | 2 | /HPF | | | + + + + + + | RBC UA | 15 | /HPF | | | + + + + + + | EPITHELIAL | 2 | /LPF | | | | CASTS UA | | | | | + + + + + + | CRYSTAL UA | Negative | | | | + + + + + + | Bacteria, | 1-5 | None Seen, 1-5, | | | | UA | | Occasional | | | + + + + + + + + | Specimen | + + | Urine | + + documented in this encounter Visit Diagnoses Not on filedocumented in this encounter"
--- OUTSIDE RECORDS SUMMARY | ~2019-10-07 | XMS | Encounter Summary ---
Demographics + + + | Address | [address] | | | [place] [address] | + + + | Home Phone | | + + + | Preferred Language | Unknown | + + + | Marital Status | | + + + | Temple Affiliation | Unknown | + + + | Race | Unknown | + + + | Ethnic Group | Unknown | + + + Author + + + | Author | [facility] | | | and [place] | + + + | Organization | [facility] | | [...] Team Providers + +------+ + | Care Supervisor Lending Activities Name | Role | Phone | + [...] + + | 09/16/ | Telephone | [facility] | Tracie Brizuela, | Pain | | 2019 | | RHEUMATOLOGY [address] | | | | | [address] | | | | | | [place] | | | | | | [address] | | | | | | [phone] | | | +--------+ + + + [...] | | | | | | [facility] | | | | | | [place] [address] | | | | | | [phone] | | | | | | | | +--------+---------+ + + + | 11/10/ | Office | Nephrology | Cristian Wallace MD | | | 2019 | Visit | | [address] [facility] | | | | | | [address] [place] | | | | | | [address] | | | | | | | | +--------+---------+ + + + documented as of this encounter Visit Diagnoses Not on filedocumented in this encounter"
--- OUTSIDE RECORDS SUMMARY | ~2019-10-07 | XMS | Clinical Summary ---
Demographics + + + | Address | [address] | | | [place] [address] | + + + | Home Phone | | + + + | Preferred Language | Unknown | + + + | Marital Status | | + + + | Restorationist Affiliation | Unknown | + + + | Race | Unknown | + + + | Ethnic Group | Unknown | + + + Author + + + | Author | [facility] | | | and [place] | + + + | Organization | [facility] | | | [...] Team Providers + +------+ + | Care Water Mangle Tender Name | Role | Phone | + [...] + + + + | Overview: SHADIA Schenider in 11/2016 | + + + + [...] will need to be seen by an radiation therapist | | at least once a year. 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 | + + Encounters +--------+ + + + + | Date | Type | Specialty | Care Team | Description | +--------+ + + + + | 10/06/ | Office | Nephrology | Cristian Wallace MD | SLE | | 2019 | Visit | | | glomerulonephritis | [...] type | | | | | | (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); | | | | | | High risk medication | | | | | | use; | | | | | | Immunosuppressed | | | | | | status (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); General | | | | | | counselling and | | | | | | advice on | | | | | | contraception | +--------+ + + + + | 10/06/ | Orders Only | Nephrology | Cristian Wallace MD | SLE | | 2018 | | | | glomerulonephritis | | [...] | | | | | | (HCC); Persistent | | | | | | proteinuria | +--------+ + + + + | 10/06/ | Documentati | Nephrology | Marcial | Results (10/01/19) | | 2019 | on | | Zara Waterman | | | | | | Lymphedema Therapist | | +--------+ + + + + | 09/26/ | Telephone | Nephrology | Cristian Wallace MD | Other (Appointment | | 2018 | | | | reminder call ) | +--------+ + + + + | 09/17/ | Telephone | Rheumatology | Felipa Stuart, | Pain | | 2018 | | | AFTER SCHOOL PROGRAM COORDINATOR | | +--------+ + + + + [...] | 08/20/ | Telephone | Rheumatology | Gelacio Tracie Smith, | Pain | | 2019 | | | RN | | +--------+ + + + + | 08/20/ | Telephone | Nephrology | Ceja, | Other (Urine | | 2018 | | | Zara Waterman | concerns) | | | | | Lymphedema Therapist | | +--------+ + + + + | 08/04/ | Refill | Rheumatology | Felipa Stuart, | Pain | | 2019 | | | AFTER SCHOOL PROGRAM COORDINATOR | | +--------+ + + + + | 07/30/ | Refill | Rheumatology | Bianca Cardona | Medication Refill | | 2018 | | | MD Juve | (HCQ) | +--------+ + + + + | 07/21/ | Office | Rheumatology | Bianca Cardona | SLE | | 2019 | Visit | | MD Juve | [...] | Jj Harris, | SLE | | 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 | | | | | | [address] [place] [address] | | | | | | [address] | | | | | | | [...] | | | | PDT | syndrome ([facility]) | results section. | + +--------+ + + + | C-REACTIVE PROTEIN | Routin | 07/21/2019 | SLE | Results for this | | | e | 3:01 PM | glomerulonephritis | procedure are in the | | | | PDT | syndrome ([facility]) | results section. | + +--------+ + + + | DNA DOUBLE-STRANDED | Routin | 07/21/2019 | SLE | Results for this | | AB, IGG | e | 3:01 PM | glomerulonephritis | procedure are in the | | | | PDT | syndrome ([facility]) | results section. | + +--------+ + + + | MARCO, IFA | Routin | 07/21/2019 | SLE | Results for this | | | e | 3:01 PM | glomerulonephritis | procedure are in the | | | | PDT | syndrome ([facility]) | results section. | + +--------+ + + + | CISSE AB, IGG | Routin | 07/21/2019 | SLE | Results for this | | | e | 3:01 PM | glomerulonephritis | procedure are in the | | | | PDT | syndrome ([facility]) | results section. | + +--------+ + + + | C3 AND C4 | Routin | 07/21/2019 | SLE | Results for this | | | e | 3:01 PM | glomerulonephritis | procedure are in the | | | | PDT | syndrome ([facility]) | results section. | + +--------+ + + + | ANTINUCLEAR AB, | Routin | 07/21/2019 | SLE | Results for this | | TITER + PATTERN | e | 3:01 PM | glomerulonephritis | procedure are in the | | | | PDT | syndrome ([facility]) | results section. | + +--------+ [...] | | | | PDT | syndrome ([facility]) | results section. | + +--------+ [...] 1.001 - 1.030 | | | | Shubuta | | | | | + + [...] | | | | | validated by [employer] | | | | | | [employer] This | | | | | [...] samples. | | | | | | Themanufacturer has not | | | | | [...] by | | | | | | [employer] | | | | | | [employer].Borderline/[employer]iv[employer] | | | | | | RF results warrant | | | | | | redraw and retestingto | | | | | | confirm.Testing | | | | | | performed at [employer] | | | | | | [employer], [address], [facility] | | | | | | [address],[place], [place] | | | | | | [phone]. | | | | + + + + + + + + | Specimen | + + | Blood | + + + + + + + | Performing | Address | City/State/Zipcode | Phone Number | | Organization | | | | + + + + + | REFERENCE LAB | [address] | [place] [address] | [phone] | | [facility] | Bl[address] | | | | LABORATORY | | | | + + + + + | REFERENCE LAB | [address] | [place] [address] | | | [facility] | Bl[address] | [...] | | | | | | Sm, REMOTE RECRUITER, SCL-70, | | | | | | [...] Dot | | | | | | Sp100,[id number] | | | | | | Primary [...] [place] | | | | | | [address] | | | | + + + + + + + + | Specimen | + + | | + + + + + + + | Performing | Address | City/State/Zipcode | Phone Number | | Organization | | | | + + + + + | REFERENCE LAB | [address] [place] [address] | [place] [address] | [phone] | | [facility] | Blvd[address] | | | | LABORATORY | | | | + + + + + | REFERENCE LAB | [address] [place] [address] | [place] [address] | | | [facility] | Bl[address] | [...] [place] | | | | | | [address] | | | | + + + + + + + + | Specimen | + + | Blood | + + + + + + + | Performing | Address | City/State/Zipcode | Phone Number | | Organization | | | | + + + + + | REFERENCE LAB | [address] [place] [address] | [place] [address] | [phone] | | [facility] | Blvd[address] | | | | LABORATORY | | | | + + + + + | REFERENCE LAB | [address] [place] [address] | [place] [address] | | | [facility] | Bl[address] | [...] | | | | | | by [employer], [address] [place] [address] | | | | | | [facility] | | | | | | [address] | | | | + + + + + + + + | Specimen | + + | Blood | + + + + + + + | Performing | Address | City/State/Zipcode | Phone Number | | Organization | | | | + + + + + | REFERENCE LAB | [address] [place] [address] | [place] [address] | [phone] | | [facility] | Blvd[address] | | | | LABORATORY | | | | + + + + + | REFERENCE LAB | [address] [place] [address] | [place] [address] | | | [facility] | Blvd[address] | | | | LABORATORY | | | | + + + + + SEAMUS LARA (07/21/2019 3:01 PM PDT) + + + [...] | | | | | performed at [facility], [address] | | | | | | [facility] | | | | | | [place] [address] | | | | + + + + + + + + | Specimen | + + | Blood | + + + + + + + | Performing | Address | City/State/Zipcode | Phone Number | | Organization | | | | + + + + + | REFERENCE LAB | [address] [place] [address] | [place] [address] | [phone] | | [facility] | Blvd[address] | | | | LABORATORY | | | | + + + + + | REFERENCE LAB | [address] [place] [address] | [place] [address] | | | [facility] | Bl[address] | [...] | | | | | | Sm, REMOTE RECRUITER, SCL-70, | | | | | | [...] Dot | | | | | | Sp100,i77-sppzwy | | | | | | Primary [...] + + + + + + | REMOTE RECRUITER | 0.4 | 0.0 - 0.9 AI [...] | | | | | | | ---------REMOTE RECRUITER | | | | | | | [...] [place] | | | | | | [address] | | | | + + + + + + + + | Specimen | + + | | + + + + + + + | Performing | Address | City/State/Zipcode | Phone Number | | Organization | | | | + + + + + | REFERENCE LAB | [address] | [place] [address] | [phone] | | [facility] | Blvd[address] | | | | LABORATORY | | | | + + + + + | REFERENCE LAB | [address] | [place] [address] | | | [facility] | Blvd[address] | [...] | | | COMPLEMENT | performed at [facility];[address] | | LAB | | | | [place] | | [facility] | | | | Blvd;[place] [address] | | LABORATORY | | + + + + + + + + | Specimen | + + | Blood | + + + + + + + | Performing | Address | City/State/Zipcode | Phone Number | | Organization | | | | + + + + + | REFERENCE LAB | [address] | [place] [address] | [phone] | | [facility] | Blvd[address] | | | | LABORATORY | | | | + + + + + | REFERENCE LAB | [address] | [place] [address] | | | [facility] | Bl[address] | [...] | | | | | performed at [facility];[address] | | | | | | [facility] | | | | | | Blvd;[place] [address] | | | | | | | | | | + + + + + + + + | Specimen | + + | Blood | + + + + + + + | Performing | Address | City/State/Zipcode | Phone Number | | Organization | | | | + + + + + | REFERENCE LAB | [address] [place] [address] | [place] [address] | [phone] | | [facility] | Blvd[address] | | | | LABORATORY | | | | + + + + + | REFERENCE LAB | [address] [place] [address] | [place] [address] | | | [facility] | Blvd. | | | | LABORATORY | | | | + + + + + Betito Ab, IgG (07/21/2019 3:01 PM PDT) + + + + + + | Component | Value | Ref Range | Performed | Pathologist | | | | | At | Signature | + + + + + + | BETITO | 3.5 (H)Comment: Testing | 0.0 - 0.9 AI | REFERENCE | | | ANTIBODY | performed at [facility], [address] | | LAB | | | | [facility] | | [facility] | | | | [place] [address] | | LABORATORY | | + + + + + + + + | Specimen | + + | Blood | + + + + + + + | Performing | Address | City/State/Zipcode | Phone Number | | Organization | | | | + + + + + | REFERENCE LAB | [address] [place] [address] | [place] [address] | [phone] | | [facility] | Blvd. | | | | LABORATORY | | | | + + + + + | REFERENCE LAB | [address] [place] [address] | [place] [address] | | | [facility] | Blvd[address] | [...] REFERENCE | | | | performed at [facility];[address] | | LAB | | | | [place] | | [facility] | | | | Blvd;[place] [address] | | LABORATORY | | + + + + + + + + | Specimen | + + | Blood | + + + + + + + | Performing | Address | City/State/Zipcode | Phone Number | | Organization | | | | + + + + + | REFERENCE LAB | [address] | [place] [address] | [phone] | | [facility] | Blvd. | | | | LABORATORY | | | | + + + + + | REFERENCE LAB | [address] | [place] [address] | | | [facility] | Blvd. | [...] [place] | | | | | | [address] | | | | + + + + + + + + | Specimen | + + | Blood | + + + + + + + | Performing | Address | City/State/Zipcode | Phone Number | | Organization | | | | + + + + + | REFERENCE LAB | [address] | [place] [address] | [phone] | | [facility] | Blvd[address] | | | | LABORATORY | | | | + + + + + | REFERENCE LAB | [address] [facility] [address] | [place] [address] | | | [facility] | Blvd. | [...] LAB | | | Total | TCL;[address] [facility] | | [facility] | | | | Blvd;[place] [address] | | LABORATORY | | + + + + + + + + | Specimen | + + | Blood | + + + + + + + | Performing | Address | City/State/Zipcode | Phone Number | | Organization | | | | + + + + + | REFERENCE LAB | [address] [facility] | [place] [address] | [phone] | | [facility] | Blvd. | | | | LABORATORY | | | | + + + + + | REFERENCE LAB | [address] | [place] [address] | | | [facility] | Blvd. | [...] | LAB | | | | TCL;[address] [facility] | | [facility] | | | | Blvd;[place] [address] | | LABORATORY | | + + + + + + + + | Specimen | + + | Blood | + + + + + + + | Performing | Address | City/State/Zipcode | Phone Number | | Organization | | | | + + + + + | REFERENCE LAB | [address] [place] [address] | [place] [address] | [phone] | | [facility] | Blvd. | | | | LABORATORY | | | | + + + + + | REFERENCE LAB | [address] [place] [address] | [place] [address] | | | [facility] | Blvd. | [...] | | | Absolute | performed at [facility];[address] | K/[address] | LAB | | | | [place] | | [facility] | | | | Blvd;[place] [address] | | LABORATORY | | + + + + + + + + | Specimen | + + | Blood | + + + + + + + | Performing | Address | City/State/Zipcode | Phone Number | | Organization | | | | + + + + + | REFERENCE LAB | [address] [place] [address] | [place] [address] | [phone] | | [facility] | Blvd. | | | | LABORATORY | | | | + + + + + | REFERENCE LAB | [address] [place] [address] | [place] [address] | | | [facility] | Blvd. | [...] REFERENCE | | | | performed at [facility];[address] | | LAB | | | | [place] | | [facility] | | | | Blvd;[place] [address] | | LABORATORY | | + + + + + + + + | Specimen | + + | Blood | + + + + + + + | Performing | Address | City/State/Zipcode | Phone Number | | Organization | | | | + + + + + | REFERENCE LAB | [address] | [place] [address] | [phone] | | [facility] | Blvd. | | | | LABORATORY | | | | + + + + + | REFERENCE LAB | [address] | [place] [address] | | | [facility] | Blvd. | [...] | | | | | performed at [facility];[address] | | | | | | [facility] | | | | | | [facility];[place] [address] | | | | | | | | | | + + + + + + + + | Specimen | + + | Blood | + + + + + + + | Performing | Address | City/State/Zipcode | Phone Number | | Organization | | | | + + + + + | REFERENCE LAB | [address] [place] [address] | [place] [address] | [phone] | | [facility] | Blvd[address] | | | | LABORATORY | | | | + + + + + | REFERENCE LAB | [address] [place] [address] | [place] [address] | | | [facility] | Blvd. | [...] +-------+--------+ +--------+-------+---------+------+ | BCBS | BCBS | [id number] | 11/05/19 | | | PPO | | | FEDERA | | 19-Pre | | | | | | L FEP | | sent | | | | +-------+--------+ +--------+-------+---------+------+ | AETNA | AETNA | [id number] | | | | PPO | | [...] | Self | [birth year] | [address] | | [place] | al/Fam | | 1995 | [phone] | [address] [place] | | | [place] | | | 3 (Home) | [address] | + +--------+ +--------+ + + Advance Directives + + + + + | Type | Date Recorded | Patient | Explanation | | | | Ditto Machine Operator | | + + + + + | Power of | | | | | Chip Silo Tender | | | | + + + + + | Advance | | | | | Directive | | | | + + + + +
--- OUTSIDE RECORDS SUMMARY | ~2019-10-07 | XMS | Encounter Summary ---
Demographics + + + | Address | [address] | | | [place] [address] | + + + | Home Phone | | + + + | Preferred Language | Unknown | + + + | Marital Status | | + + + | Anabaptism Affiliation | Unknown | + + + [...] Team Providers + +------+ + | Care Safety Supervisor Name | Role | Phone | + +------+ + | Eric Bhatti DO | PCP | | + +------+ + Reason for Visit +--------+ + | Reason | Comments | +--------+ + | Pain | | +--------+ + Encounter Details +--------+--------+ + + + | Date | Type | Department | Care Team | Description | +--------+--------+ + + + | 08/04/ | Refill | [facility] | Felipa Stuart, | Pain | | 2019 | | RHEUMATOLOGY [address] | [address] | | | | | [address] | | | | | | [place] | | | | | | [address] | | | | | | [phone] | | | +--------+--------+ + + + Social History + +-------+ [...] [address] | | | | | | [facility] | | | | | | [place] [address] | | | | | | [phone] | | | | | | | | +--------+---------+ + + + | 11/10/ | Office | Nephrology | Cristian Wallace MD | | | 2019 | Visit | | [address] [facility] | | | | | | [address] [place] | | | | | | [address] | | | | | | | | +--------+---------+ + + + documented as of this encounter Visit Diagnoses Not on filedocumented in this encounter"
--- OUTSIDE RECORDS SUMMARY | ~2019-10-07 | XMS | Encounter Summary ---
Demographics + + + | Address | [address] | | | [place] [address] | + + + | Home Phone [...] Author | [facility] [...] Team Providers + +------+ + | Care Pipe Bending Machine Operator Name | Role | Phone | [...] | | | | | erythematosu | [place], | [address] | | | | | s ([facility]) | [place] | Phone: | | | | | | [address] | [phone] | | | | | | Phone: | Fax: | | | | | | [phone] | [phone] | | | | | | Fax: | | | | | | | [phone] | | +--------+--------+ + + + + Encounter Details +--------+---------+ + + + | Date | Type | Department | Care Team | Description | +--------+---------+ + + + | 06/30/ | Office | [facility] | Cristian Wallace MD | Lupus nephritis, | | 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 | | | | [address] | [address] [facility] [place] | ([facility]); Persistent | | | | [address] | [address] | proteinuria; | | | | [place], [place] | | Microscopic | | | | [address] | | hematuria; Other | | | | [phone] | | neutropenia ([facility]) | +--------+---------+ + + + Social History [...] sun DEXA SCAN: No need now (no senior living steroid use) COLONOSCOPY: N/A now DENTIST: every 6 months REVENUE AUDIT CLERK/MAMMOGRAM: yearly Also: I decreased her Myfortic to [...] 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 She had a DRY GOODS CLERK lupus flare in 2014, improved with a [...] sun DEXA SCAN: No need now (no senior living steroid use) COLONOSCOPY: N/A now DENTIST: every 6 months REVENUE AUDIT CLERK/MAMMOGRAM: yearly Also: I decreased her Myfortic to [...] or concerns. Truly yours, Cristian Wallace MD [facility] documented in this enco unter Plan of Treatment +--------+---------+ + + + | Date | Type | Specialty | Care Team | Description | +--------+---------+ + + + | 10/20/ | Office | Rheumatology | Genevieve Hudson | | | 2018 | Visit | | KITTY Hansen [address] | | | | | | [facility] | | | | | | [place] [address] | | | | | | [phone] | | | | | | | | +--------+---------+ + + + | 11/10/ | Office | Nephrology | Cristian Wallace MD | | | 2019 | Visit | | [address] [facility] | | | | | | [address] [place] | | | | | | [address] | | | | | | | [...]
--- OUTSIDE RECORDS SUMMARY | ~2019-10-07 | XMS | Encounter Summary ---
Demographics + + + | Address | [address] | | | [place] [address] | + + + | Home Phone | | + + + | Preferred Language | Unknown | + + + | Marital Status | | + + + | Faith Affiliation | Unknown | + + + | Race | Unknown | + + + | Ethnic Group | Unknown | + + + Author + + + | Author | [facility] | | | and [place] | + + + | Organization | [facility] | | [...] Team Providers + +------+ + | Care Butcher Chicken And Fish Name | Role | Phone | + +------+ + | Eric Bhatti DO | PCP | | + +------+ + Encounter Details +--------+ + + + + | Date | Type | Department | Care Team | Description | +--------+ + + + + | 06/24/ | Orders Only | [facility] | Cristian Wallace MD | Proteinuria, | | 2018 | | NEPHROLOGY [place] | [address] | unspecified type | | | | [address] | [address] [place], [place] | (Primary Dx); Lupus | | | | [address] [place], [place] | [address] | nephritis (HCC) | | | | [address] | | | | | | [phone] | | | +--------+ + + + [...] | | | | | | [facility] [facility] | | | | | | [place] [address] | | | | | | [phone] | | | | | | | | +--------+---------+ + + + | 11/10/ | Office | Nephrology | Cristian Wallace MD | | | 2019 | Visit | | [address] [facility] | | | | | | [address] [place] | | | | | | [address] | | | | | | | [...]
--- OUTSIDE RECORDS SUMMARY | ~2019-10-07 | XMS | Encounter Summary ---
Demographics + + + | Address | [address] | | | [place] [address] | + + + | Home Phone | | + + + | Preferred Language | Unknown | + + + | Marital Status | | + + + | Sikh Affiliation | Unknown | + + + | Race | Unknown | + + + | Ethnic Group | Unknown | + + + Author + + + | Author | [facility] | | | and [place] | + + + | Organization | [facility] | | [...] Team Providers + +------+ + | Care Heavy Equipment Sales Associate Name | Role | Phone | [...] + + | 09/16/ | Telephone | [facility] | Tracie Brizuela, | Pain | | 2019 | | RHEUMATOLOGY [address] | [place] | | | | | [address] | | | | | | [place] | | | | | | [address] | | | | | | [phone] | | | +--------+ + + + [...] | | | | | | [place] [address] | | | | | | [phone] | | | | | | | | +--------+---------+ + + + | 11/10/ | Office | Nephrology | Cristian Wallace MD | | | 2019 | Visit | | [address] [facility] | | | | | | [address] [place] | | | | | | [address] | | | | | | | | +--------+---------+ + + + documented as of this encounter Visit Diagnoses Not on filedocumented in this encounter"
--- OUTSIDE RECORDS SUMMARY | ~2019-10-07 | XMS | Clinical Summary ---
Demographics + + + | Address | [address] | | | [place] [address] | + + + | Home Phone | | + + + | Preferred Language | Unknown | + + + | Marital Status | Single | + + + | Gnosticist Affiliation | Unknown | + + + | Race | Unknown | + + + | Ethnic Group | Unknown | + + + Author + + + | Author | [facility] (Historical as of | | | 06-21-19) | + + + | Organization | [facility] (Historical as of | | | 06-21-19) | + + + | Address | Unknown | + + + | Phone | Unavailable | + + + Support + + +---------+ + | Name | Relationship | Address | Phone | + + +---------+ + | Cheryl Washington | ECON | Unknown | | + + +---------+ + Care Team Providers + +------+ + | Care Boilermaking Supervisor Name | Role | Phone | + +------+ + | Magy Eric | PP | | + +------+ + Allergies Not on File Current Medications Not on file Active Problems + + + | Problem | Noted Date | + + + | Proteinuria | 06/20/2019 | + + + | Lupus nephritis (HCC) | 06/20/2019 | + + + Social History + +-------+ [...] on file | | + + + Plan of Treatment + + + + + | Health [...] + + + | Vaccine: | | 07/06/2016, 09/09/2013 | | | Dtap/Tdap/Td (3 - | 6 | | | | Td) | | | | + + + + + Results Not on filefrom Last 3 Months Insurance +---------+--------+ +------+-------+---------+ | Payer | Benefi | Subscriber | Type | Phone | Address | | | t Plan | ID | | | | | | / | | | | | | | Group | | | | | +---------+--------+ +------+-------+---------+ | [employer] | BLUE | [id number] | | | | | | CROSS | | | | | | | BLUE | | | | | | | SHIELD | | | | | | | FEP | | | | | +---------+--------+ +------+-------+---------+ + +--------+ +--------+ + + | Guarantor Name | Accoun | Relation to | Date | Phone | Billing Address | | | t Type | Patient | of | | | | | | | | | | + +--------+ +--------+ + + | BROOK WASHINGTON | Person | Self | [birth year] | Home: | [address] [place] [address] [address] | | [address] | al/Rom | | 1995 | [phone] [address] [place] | | | maría | | | [phone] | [phone] | + +--------+ +--------+ + +"
--- OUTSIDE RECORDS SUMMARY | ~2019-10-07 | XMS | Encounter Summary ---
Demographics + + + | Address | [address] | | | [place] [address] | + + + | Home Phone | | + + + | Preferred Language | Unknown | + + + | Marital Status | | + + + | Oriental Orthodox Affiliation | Unknown | + + + | Race | Unknown | + + + | Ethnic Group | Unknown | + + + Author + + + | Author | [facility] | | | and [place] | + + + | Organization | [facility] | | | and [...] Team Providers + +------+ + | Care Mainspring Winder And Oiler Name | Role | Phone | + +------+ + | Eric Bhatti DO | PCP | | + +------+ + Reason for Visit + + + | Reason | Comments | + + + | Medication Refill | HCQ | + + + Encounter Details +--------+--------+ + + + | Date | Type | Department | Care Team | Description | +--------+--------+ + + + | 07/30/ | Refill | [facility] | Bianca Cardona | Medication Refill | | 2018 | | [address] | [address] | (HCQ) | | | | [address] | [address] | | | | | [place], [place] | [place] [address] | | | | | [address] | [phone] | | | | | [phone] | | | +--------+--------+ + + + [...] 2018 | Visit | | KITTY Hansen [address] | | | | | | [facility] | | | | | | [place] [address] | | | | | | [phone] | | | | | | | | +--------+---------+ + + + | 11/10/ | Office | Nephrology | Cristian Wallace MD | | | 2020 | Visit | | [address] [facility] [address] | | | | | | [address] [place], [place] | | | | | | [address] | | | | | | | | +--------+---------+ + + + documented as of this encounter Visit Diagnoses Not on filedocumented in this encounter"
--- OUTSIDE RECORDS SUMMARY | ~2019-10-07 | XMS | Clinical Summary ---
Demographics + + + | Address | [address] | | | [place] [address] | + + + | Home Phone | | + + + | Preferred Language | Unknown | + + + | Marital Status | Single | + + + | Buddhist Affiliation | Unknown | + + + | Race | Unknown | + + + | Ethnic Group | Unknown | + + + Author + + + | Author | [facility] (Historical as of | | | 06-21-19) | + + + | Organization | [facility] (Historical as of | | | 06-21-19) [...] Team Providers + +------+ + | Care Table Hand Name | Role | Phone | + [...] +---------+--------+ +------+-------+---------+ | [place] | BLUE | [id number] | | | | | | CROSS [...] | Self | [birth year] | Home: | [address] [place] [address] [address] | | [place] | [address] | | 1995 | [phone] | [address] [place] | | | [place] | | | [phone] | [phone] | + +--------+ +--------+ + +"
--- OUTSIDE RECORDS SUMMARY | ~2019-10-07 | XMS | Encounter Summary ---
Demographics + + + | Address | [address] | | | [place] [address] | + + + | Home Phone | | + + + | Preferred Language | Unknown | + + + | Marital Status | | + + + | Religion Affiliation | Unknown | + + + | Race | Unknown | + + + | Ethnic Group | Unknown | + + + Author + + + | Author | [facility] | | | and [place] | + + + | Organization | [facility] | | [...] Team Providers + +------+ + | Care Tearer Name | Role | Phone | + +------+ + | Eric Bhatti DO | PCP | | + +------+ + Encounter Details +--------+ + + + + | Date | Type | Department | Care Team | Description | +--------+ + + + + | 07/01/ | Orders Only | [facility] | Cristian Wallace MD | Lupus nephritis | | 2019 | | NEPHROLOGY [place] | [address] | (HCC) (Primary Dx); | | | | [address] [place] | [address] [place], [place] | Persistent | | | | [address] [place], [place] | [address] | proteinuria | | | | [address] | | | | | | [phone] | | | +--------+ + + + [...] [address] | | | | | | [place] [address] | | | | | | [phone] | | | | | | | | +--------+---------+ + + + | 11/10/ | Office | Nephrology | Cristian Wallace MD | | | 2019 | Visit | | [address] [facility] [address] | | | | | | [address] [place] | | | | | | [address] | | | | | | | [...]
--- OUTSIDE RECORDS SUMMARY | ~2019-10-07 | XMS | Encounter Summary ---
Demographics + + + | Address | [address] | | | [place] [address] | + + + | Home Phone | | + + + | Preferred Language | Unknown | + + + | Marital Status | | + + + | Latter Day Affiliation | Unknown | + + + | Race | Unknown | + + + | Ethnic Group | Unknown | + + + Author + + + | Author | [facility] | | | and [place] | + + + | Organization | [facility] | | | [...] Team Providers + +------+ + | Care Steel Inspector Name | Role | Phone | + +------+ + | Eric Bhatti DO | PCP | | + +------+ + Encounter Details +--------+---------+ + + + | Date | Type | Department | Care Team | Description | +--------+---------+ + + + | 10/06/ | Office | [facility] | Cristian Wallace MD | SLE | | 2019 | Visit | NEPHROLOGY [place] | [address] [facility] [address] | glomerulonephritis | | | | [address] | [address] [place], [place] | syndrome (HCC) | | | | [address] | [address] | (Primary Dx); | | | | [place], [place] | | Systemic lupus | | | | [address] | | erythematosus with | | | | [phone] | | tubulo-interstitial | | | | [...] sun DEXA SCAN: No need now (no halfway steroid use yet) COLONOSCOPY: N/A now DENTIST: every 6 months PAN WASHER/MAMMOGRAM: yearly Also: I stopped her Naproxen. 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 I [...] 2018 | Visit | | KITTY Hansen [address] | | | | | | [facility] | | | | | | [place] [address] | | | | | | [phone] | | | | | | | | +--------+---------+ + + + | 11/10/ | Office | Nephrology | Cristian Wallace MD | | | 2019 | Visit | | [address] [facility] | | | | | | [address] [place], [place] | | | | | | [address] | | | | | | | [...]
--- OUTSIDE RECORDS SUMMARY | ~2019-10-07 | XMS | Encounter Summary ---
Demographics + + + | Address | [address] | | | [place] [address] | + + + | Home Phone [...] + + | Author | [facility] | | | and [place] | + + + | Organization | [facility] | | | [...] Team Providers + +------+ + | Care Maintenance Fitter Name | Role | Phone | + +------+ + | Eric Bhatti DO | PCP | | + +------+ + Encounter Details +--------+ + + + + | Date | Type | Department | Care Team | Description | +--------+ + + + + | 10/06/ | Orders Only | 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 | | | | [...] 2019 | Visit | | KITTY Hansen [address] | | | | | | [facility] | | | | | | [place] [address] | | | | | | [phone] | | | | | | | | +--------+---------+ + + + | 11/10/ | Office | Nephrology | Cristian Wallace MD | | | 2019 | Visit | | [address] [facility] | | | | | | [address] [place] | | | | | | [address] | | | | | | | [...] type | | | | | | ([facility]) Persistent | | | | | | [...] type | | | | | | ([facility]) Persistent | | | | | | [...] type | | | | | | ([facility]) Persistent | | | | | | [...]
--- OUTSIDE RECORDS SUMMARY | ~2019-10-07 | XMS | Encounter Summary ---
Demographics + + + | Address | [address] | | | [place] [address] | + + + | Home Phone | | + + + | Preferred Language | Unknown | + + + | Marital Status | | + + + | Latter-Day Affiliation | Unknown | + + + | Race | Unknown | + + + | Ethnic Group | Unknown | + + + Author + + + | Author | [facility] | | | and [place] | + + + | Organization | [facility] | | | and [...] Team Providers + +------+ + | Care Test Fixture Assembler Name | Role | Phone | [...] + + | 08/20/ | Telephone | [facility] | Tracie Brizuela, | Pain | | 2019 | | R[address]UM[address]OLOGY [address] | [address] | | | | | [address] | | | | | | [place] | | | | | | [address] | | | | | | [phone] | | | +--------+ + + + [...] | | | | | | [place] [address] | | | | | | [phone] | | | | | | | | +--------+---------+ + + + | 11/10/ | Office | Nephrology | Cristian Wallace MD | | | 2019 | Visit | | [address] [facility] | | | | | | [address] [place] | | | | | | [address] | | | | | | | | +--------+---------+ + + + documented as of this encounter Visit Diagnoses Not on filedocumented in this encounter"
--- OUTSIDE RECORDS SUMMARY | ~2019-10-07 | XMS | Encounter Summary ---
Demographics + + + | Address | [address] | | | [place] [address] | + + + | Home Phone | | + + + | Preferred Language | Unknown | + + + | Marital Status | | + + + | Bahai Affiliation | Unknown | + + + [...] Team Providers + +------+ + | Care Plan Consultant Name | Role | Phone | [...] + + | 08/20/ | Telephone | [facility] | Marcial, | Other (Urine | | 2019 | | NEPHROLOGY [place] | Zara Waterman | concerns) | | | | [address] [place] | Manager Transportation | | | | | [address] [place], [place] | | | | | | [address] | | | | | | [phone] | | | +--------+ + + + [...] 2018 | Visit | | KITTY Hansen [address] | | | | | | [facility] | | | | | | [place] [address] | | | | | | [phone] | | | | | | | | +--------+---------+ + + + | 11/10/ | Office | Nephrology | Cristian Wallace MD | | | 2019 | Visit | | [address] [facility] | | | | | | [address] [place] | | | | | | [address] | | | | | | | | +--------+---------+ + + + documented as of this encounter Visit Diagnoses Not on filedocumented in this encounter"
--- OUTSIDE RECORDS SUMMARY | ~2019-10-07 | XMS | Encounter Summary ---
Demographics + + + | Address | [address] | | | [place] [address] | + + + | Home Phone | | + + + | Preferred Language | Unknown | + + + | Marital Status | | + + + | Adventist Affiliation | Unknown | + + + [...] Team Providers + +------+ + | Care Bi Technical Lead Name | Role | Phone | + [...] + + | 06/25/ | Telephone | [facility] | Cristian Wallace MD | Other (Appointmet | | 2019 | | NEPHROLOGY [place] | [address] | reminder call) | | | | [address] [place] | [address] [place], [place] | | | | | [address] [place], [place] | [address] | | | | | [address] | | | | | | [phone] | | | +--------+ + + + [...] | | | | | [place] [address] | | | | | | [phone] | | | | | | | | +--------+---------+ + + + | 11/10/ | Office | Nephrology | Cristian Wallace MD | | | 2020 | Visit | | [address] [facility] | | | | | | [address] [place] | | | | | | [address] | | | | | | | | +--------+---------+ + + + documented as of this encounter Visit Diagnoses Not on filedocumented in this encounter"
--- OUTSIDE RECORDS SUMMARY | ~2019-10-07 | XMS | Encounter Summary ---
Demographics + + + | Address | [address] | | | [place] [address] | + + + | Home Phone | | + + + | Preferred Language | Unknown | + + + | Marital Status | | + + + | Church Affiliation | Unknown | + + + [...] Team Providers + +------+ + | Care Gas Engine Operator Generators Name | Role | Phone | + [...] + + | 06/25/ | Telephone | [facility] | Cristian Wallace MD | Other (Appointmet | | 2019 | | NEPHROLOGY [place] | [address] | reminder call) | | | | [address] [place] | [address] [place], [place] | | | | | [address] [place], [place] | [address] | | | | | [address] | | | | | | [phone] | | | +--------+ + + + [...] | | | | | [place] [address] | | | | | | [phone] | | | | | | | | +--------+---------+ + + + | 11/10/ | Office | Nephrology | Cristian Wallace MD | | | 2020 | Visit | | [address] [facility] | | | | | | [address] [place] | | | | | | [address] | | | | | | | | +--------+---------+ + + + documented as of this encounter Visit Diagnoses Not on filedocumented in this encounter"
--- OUTSIDE RECORDS SUMMARY | ~2019-10-07 | XMS | Encounter Summary ---
Demographics + + + | Address | [address] | | | [place] [address] | + + + | Home Phone | | + + + | Preferred Language | Unknown | + + + | Marital Status | | + + + | Episcopalian Affiliation | Unknown | + + + | Race | Unknown | + + + | Ethnic Group | Unknown | + + + Author + + + | Author | [facility] | | | and [place] | + + + | Organization | [facility] | | | [...] Team Providers + +------+ + | Care Dog Warden Name | Role | Phone | + +------+ + | Eric Bhatti DO | PCP | | + +------+ + Encounter Details +--------+ + + + + | Date | Type | Department | Care Team | Description | +--------+ + + + + | 06/25/ | Documentati | [facility] | Marcial, | | | 2019 | on | NEPHROLOGY [place] | Zara Waterman | | | | | [address] | Real Estate Professional | | | | | [address] [place] | | | | | | [address] | | | | | | [phone] | | | +--------+ + + + [...] 2019 | Visit | | KITTY Hansen [address] | | | | | | [facility] | | | | | | [place] [address] | | | | | | [phone] | | | | | | | | +--------+---------+ + + + | 11/10/ | Office | Nephrology | Cristian Wallace MD | | | 2019 | Visit | | [address] [facility] | | | | | | [address] [facility] [place] | | | | | | [address] | | | | | | | [...] 1.005 - 1.030 | | | | [place] | | | | | + [...]
--- OUTSIDE RECORDS SUMMARY | ~2019-10-07 | XMS | Encounter Summary ---
Demographics + + + | Address | [address] | | | [place] [address] | + + + | Home Phone | | + + + | Preferred Language | Unknown | + + + | Marital Status | | + + + | Zoroastrian Affiliation | Unknown | + + + | Race | Unknown | + + + | Ethnic Group | Unknown | + + + Author + + + | Author | [facility] | | | and [place] | + + + | Organization | [facility] | | [...] Team Providers + +------+ + | Care Coil Builder Name | Role | Phone | + +------+ + | Eric Bhatti DO | PCP | | + +------+ + Encounter Details +--------+ + + + + | Date | Type | Department | Care Team | Description | +--------+ + + + + | 10/06/ | Orders Only | [facility] | Cristian Wallace MD | SLE | | 2019 | | NEPHROLOGY [place] | [address] | glomerulonephritis | | | | [address] | [address] [place], [place] | syndrome (HCC) | | | | [address] | [address] | (Primary Dx); | | | | [place], [place] | | Systemic lupus | | | | [address] | | erythematosus with | | | | [phone] | | tubulo-interstitial | | | | [...] 2019 | Visit | | KITTY Hansen [address] | | | | | | [facility] | | | | | | [place] [address] | | | | | | [phone] | | | | | | | | +--------+---------+ + + + | 11/10/ | Office | Nephrology | Cristian Wallace MD | | | 2019 | Visit | | [address] [facility] | | | | | | [address] [place] | | | | | | [address] | | | | | | | [...] type | | | | | | ([facility]) Persistent | | | | | [...] type | | | | | | ([facility]) Persistent | | | | | [...] type | | | | | | ([facility]) Persistent | | | | | [...]
--- OUTSIDE RECORDS SUMMARY | ~2019-10-07 | XMS | Encounter Summary ---
Demographics + + + | Address | [address] | | | [place] [address] | + + + | Home Phone | | + + + | Preferred Language | Unknown | + + + | Marital Status | | + + + | Gnosticism Affiliation | Unknown | + + + | Race | Unknown | + + + | Ethnic Group | Unknown | + + + Author + + + | Author | [facility] | | | and [place] | + + + | Organization | [facility] | | | [...] Team Providers + +------+ + | Care Vice President Of Academic Affairs Name | Role | Phone | + [...] + + | 07/30/ | Refill | [facility] | Bianca Cardona | Medication Refill | | 2018 | | [address] | MD [address] | (HCQ) | | | | [address] | [address] | | | | | [place], [place] | [place] [address] | | | | | [address] | [phone] | | | | | [phone] | | | +--------+--------+ + + + [...] 2018 | Visit | | KITTY Hansen [address] | | | | | | [facility] | | | | | | [place] [address] | | | | | | [phone] | | | | | | | | +--------+---------+ + + + | 11/10/ | Office | Nephrology | Cristian Wallace MD | | | 2020 | Visit | | [address] [facility] | | | | | | [address] [place], [place] | | | | | | [address] | | | | | | | | +--------+---------+ + + + documented as of this encounter Visit Diagnoses Not on filedocumented in this encounter"
--- OUTSIDE RECORDS SUMMARY | ~2019-10-07 | XMS | Encounter Summary ---
Demographics + + + | Address | [address] | | | [place] [address] | + + + | Home Phone | | + + + | Preferred Language | Unknown | + + + | Marital Status | | + + + | Evangelical Affiliation | Unknown | + + + | Race | Unknown | + + + | Ethnic Group | Unknown | + + + Author + + + | Author | [facility] | | | and [place] | + + + | Organization | [facility] | | [...] Providers + +------+ + | Care Safety Engineer Pressure Vessels Name | Role | Phone | + [...] + + | 06/30/ | Documentati | [facility] | Marcial, | Results (06/26/19) | | 2019 | on | NEPHROLOGY [place] | [facility] | | | | | [address] | Stamp Collector | | | | | [address] | | | | | | [place] | | | | | | [address] | | | | | | [phone] | | | +--------+ + + + [...] W | | | | | | [facility] | | | | | | [place] [address] | | | | | | [phone] | | | | | | | | +--------+---------+ + + + | 11/10/ | Office | Nephrology | Cristian Wallace MD | | | 2019 | Visit | | [address] [facility] | | | | | | [address] [place] | | | | | | [address] | | | | | | | [...] 1.005 - 1.030 | | | | [place] | | | | | + [...]
--- OUTSIDE RECORDS SUMMARY | ~2019-10-07 | XMS | Encounter Summary ---
Demographics + + + | Address | [address] | | | [place] [address] | + + + | Home Phone | | + + + | Preferred Language | Unknown | + + + | Marital Status | | + + + | Holiness Affiliation | Unknown | + + + | Race | Unknown | + + + | Ethnic Group | Unknown | + + + Author + + + | Author | [facility] | | | and [place] | + + + | Organization | [facility] | | | [...] Team Providers + +------+ + | Care Carton Inspector Name | Role | Phone | [...] + + | 08/04/ | Refill | [facility] | Felipa Stuart, | Pain | | 2019 | | R[address]UMATOLOGY [address] | [address] | | | | | [address] | | | | | | [place] | | | | | | [address] | | | | | | [phone] | | | +--------+--------+ + + + [...] W | | | | | | [facility] | | | | | | [place] [address] | | | | | | [phone] | | | | | | | | +--------+---------+ + + + | 11/10/ | Office | Nephrology | Cristian Wallace MD | | | 2019 | Visit | | [address] [facility] | | | | | | [address] [place] | | | | | | [address] | | | | | | | | +--------+---------+ + + + documented as of this encounter Visit Diagnoses Not on filedocumented in this encounter"
--- OUTSIDE RECORDS SUMMARY | ~2019-10-07 | XMS | Encounter Summary ---
Demographics + + + | Address | [address] | | | [place] [address] | + + + | Home Phone | | + + + | Preferred Language | Unknown | + + + | Marital Status | | + + + | Cheondoism Affiliation | Unknown | + + + | Race | Unknown | + + + | Ethnic Group | Unknown | + + + Author + + + | Author | [facility] | | | and [place] | + + + | Organization | [facility] | | | and [...] Team Providers + +------+ + | Care Refund Specialist Name | Role | Phone | [...] + + | 06/25/ | Telephone | [facility] | Cristian Wallace MD | Other | | 2019 | | NEPHROLOGY [place] | [address] [place] | | | | | [address] [place] | [address] [place], [place] | | | | | [address] [place], [place] | [address] | | | | | [address] | | | | | | [phone] | | | +--------+ + + + [...] | | | | | | [facility] | | | | | | [place] [address] | | | | | | [phone] | | | | | | | | +--------+---------+ + + + | 11/10/ | Office | Nephrology | Cristian Wallace MD | | | 2019 | Visit | | [address] | | | | | | [facility] | | | | | | [address] | | | | | | | | +--------+---------+ + + + documented as of this encounter Visit Diagnoses Not on filedocumented in this encounter"
--- OUTSIDE RECORDS SUMMARY | ~2019-10-07 | XMS | Clinical Summary ---
Demographics + + + | Address | [address] | | | [place] [address] | + + + | Home Phone | | + + + | Preferred Language | Unknown | + + + | Marital Status | | + + + | Quaker Affiliation | Unknown | + + + [...] Providers + +------+ + | Care Marketing Assistant Manager Name | Role | Phone [...] will need to be seen by an oracle data warehouse developer | | at least once a year. [...] Anti-DNA | | | | Antibody to chicken ranch DNA in abnormal titer ORAnti-Sm | | [...] | | Susie's syndrome YES Renal Urine sgxetkw-pc-ksxswsefnj ratio | | (or 24-hour urine protein) [...] Anti-DNA | | | | Antibody to chicken ranch DNA in abnormal titer ORAnti-Sm | | [...] Susie's syndrome | | YES Renal Urine kxbcazz-gl-tzuvamrpem ratio (or 24-hour urine | | protein) [...] Patient understands that treatment is | | assisted and if patient fails to continue regimen [...] type | | | | | | ([facility]); Microscopic | | | | | | hematuria; | | | | | | Persistent | | | | | | proteinuria; 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[facility]); | | | | | | High risk medication | | | | | | use; | | | | | | Immunosuppressed | | | | | | status ([facility]); | | | | | | 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 | | | | | | ([facility]); General | | | | | | [...] [place] | | | | | | Meeting Manager | | +--------+ + + + + | 09/26/ | Telephone | Nephrology | Cristian Wallace MD | Other (Appointment | | 2018 | | | | reminder call ) | +--------+ + + + + | 09/17/ | Telephone | Rheumatology | Felipa Stuart, | Pain | | 2018 | | | DEAD MAIL CHECKER | | +--------+ + + + + [...] | concerns) | | | | | Meeting Manager | | +--------+ + + + + | 08/04/ | Refill | Rheumatology | Felipa Stuart, | Pain | | 2019 | | | DEAD MAIL CHECKER | | +--------+ + + + + [...] SLE | | 2019 | | | Money Examiner | glomerulonephritis | | | | | [...] | | | | | [place] [address] | | | | | | [phone] | | | | | | | | +--------+---------+ + + + | 11/10/ | Office | Nephrology | Cristian Wallace MD | | | 2019 | Visit | | [address] [facility] | | | | | | [address] [place] | | | | | | [address] | | | | | | | [...] + +--------+ + + + | LATOSHA OCNCEPCION | Routin | 07/21/2019 | | Results [...] | | | | PDT | syndrome ([facility]) | results section. | + +--------+ + + + | C-REACTIVE PROTEIN | Routin | 07/21/2019 | SLE | Results for this | | | e | 3:01 PM | glomerulonephritis | procedure are in the | | | | PDT | syndrome ([facility]) | results section. | + +--------+ + + + | DNA DOUBLE-STRANDED | Routin | 07/21/2019 | SLE | Results for this | | AB, IGG | e | 3:01 PM | glomerulonephritis | procedure are in the | | | | PDT | syndrome ([facility]) | results section. | + +--------+ + + + | MARCO, IFA | Routin | 07/21/2019 | SLE | Results for this | | | e | 3:01 PM | glomerulonephritis | procedure are in the | | | | PDT | syndrome ([facility]) | results section. | + +--------+ + + + | CISSE AB, IGG | Routin | 07/21/2019 | SLE | Results for this | | | e | 3:01 PM | glomerulonephritis | procedure are in the | | | | PDT | syndrome ([facility]) | results section. | + +--------+ + + + | C3 AND C4 | Routin | 07/21/2019 | SLE | Results for this | | | e | 3:01 PM | glomerulonephritis | procedure are in the | | | | PDT | syndrome ([facility]) | results section. | + +--------+ + + + | ANTINUCLEAR AB, | Routin | 07/21/2019 | SLE | Results for this | | TITER + PATTERN | e | 3:01 PM | glomerulonephritis | procedure are in the | | | | PDT | syndrome ([facility]) | results section. | + +--------+ + [...] | | | | PDT | syndrome ([facility]) | results section. | + +--------+ + [...] 1.001 - 1.030 | | | | [place] | | | | | + + [...] by | | | | | | [email or web address] | | | | | | [employer] | | | | | | RF results warrant | | | | | | redraw and retestingto | | | | | | confirm.Testing | | | | | | performed at [facility] | | | | | | [employer], [address] | | [address], [facility] | | | | | | [address],[place], [place] | | | | | | [phone]. | | | | + + + + + + + + | Specimen | + + | Blood | + + + + + + + | Performing | Address | City/State/Zipcode | Phone Number | | Organization | | | | + + + + + | REFERENCE LAB | [address] [facility] | [place] [address] | [phone] | | [facility] | Blvd[address] | | | | LABORATORY | | | | + + + + + | REFERENCE LAB | [address] | [place] [address] | | | [facility] | Blvd[address] | [...] | | | | | | Sm, RADIUS CORNER MACHINE OPERATOR, SCL-70, | | | | | | [...] Dot | | | | | | Sp100,q04-quwmwl | | | | | | Primary [...] [place] | | | | | | [address] | | | | + + + + + + + + | Specimen | + + | | + + + + + + + | Performing | Address | City/State/Zipcode | Phone Number | | Organization | | | | + + + + + | REFERENCE LAB | [address] [place] [address] | [place] [address] | [phone] | | [facility] | Blvd. | | | | LABORATORY | | | | + + + + + | REFERENCE LAB | [address] [place] [address] | [place] [address] | | | [facility] | Blvd. | [...] [place] | | | | | | [address] | | | | + + + + + + + + | Specimen | + + | Blood | + + + + + + + | Performing | Address | City/State/Zipcode | Phone Number | | Organization | | | | + + + + + | REFERENCE LAB | [address] [place] [address] | [place] [address] | [phone] | | [facility] | Blvd. | | | | LABORATORY | | | | + + + + + | REFERENCE LAB | [address] [place] [address] | [place] [address] | | | [facility] | Blvd. | [...] | | | | | by [facility], [address] [place] [address] | | | | | | [facility] | | | | | | [address] | | | | + + + + + + + + | Specimen | + + | Blood | + + + + + + + | Performing | Address | City/State/Zipcode | Phone Number | | Organization | | | | + + + + + | REFERENCE LAB | [address] [place] [address] | [place] [address] | [phone] | | [facility] | Blvd. | | | | LABORATORY | | | | + + + + + | REFERENCE LAB | [address] [place] [address] | [place] [address] | | | [facility] | Blvd. | [...] | | | | | performed at [facility], [address] | | | | | | [facility] | | | | | | [place] [address] | | | | + + + + + + + + | Specimen | + + | Blood | + + + + + + + | Performing | Address | City/State/Zipcode | Phone Number | | Organization | | | | + + + + + | REFERENCE LAB | [address] [place] [address] | [place] [address] | [phone] | | [facility] | Blvd. | | | | LABORATORY | | | | + + + + + | REFERENCE LAB | [address] [place] [address] | [place] [address] | | | [facility] | Blvd. | [...] | | | | | | Sm, RADIUS CORNER MACHINE OPERATOR, SCL-70, | | | | | | [...] Dot | | | | | | Sp100,p38-grxsee | | | | | | Primary [...] + + + + + + | RADIUS CORNER MACHINE OPERATOR | 0.4 | 0.0 - 0.9 AI [...] | | | | | | | ---------RADIUS CORNER MACHINE OPERATOR | | | | | | | [...] [place] | | | | | | [address] | | | | + + + + + + + + | Specimen | + + | | + + + + + + + | Performing | Address | City/State/Zipcode | Phone Number | | Organization | | | | + + + + + | REFERENCE LAB | [address] | [place] [address] | [phone] | | [facility] | Blvd. | | | | LABORATORY | | | | + + + + + | REFERENCE LAB | [address] | [place] [address] | | | [facility] | Blvd. | [...] | | | COMPLEMENT | performed at [facility];[address] | | LAB | | | | [place] | | [facility] | | | | Blvd;[place] [address] | | LABORATORY | | + + + + + + + + | Specimen | + + | Blood | + + + + + + + | Performing | Address | City/State/Zipcode | Phone Number | | Organization | | | | + + + + + | REFERENCE LAB | [address] | [place] [address] | [phone] | | [facility] | Blvd. | | | | LABORATORY | | | | + + + + + | REFERENCE LAB | [address] | [place] [address] | | | [facility] | Blvd. | [...] | | | | | performed at [facility];[address] | | | | | | [facility] | | | | | | Blvd;[place] [address] | | | | | | | | | | + + + + + + + + | Specimen | + + | Blood | + + + + + + + | Performing | Address | City/State/Zipcode | Phone Number | | Organization | | | | + + + + + | REFERENCE LAB | [address] [place] [address] | [place] [address] | [phone] | | [facility] | Blvd. | | | | LABORATORY | | | | + + + + + | REFERENCE LAB | [address] [place] [address] | [place] [address] | | | [facility] | Blvd. | [...] | | LAB | | | | [facility] | | [facility] | | | | [place] [address] | | LABORATORY | | + + + + + + + + | Specimen | + + | Blood | + + + + + + + | Performing | Address | City/State/Zipcode | Phone Number | | Organization | | | | + + + + + | REFERENCE LAB | [address] [place] [address] | [place] [address] | [phone] | | [facility] | Blvd. | | | | LABORATORY | | | | + + + + + | REFERENCE LAB | [address] [place] [address] | [place] [address] | | | [facility] | Blvd. | [...] REFERENCE | | | | performed at [facility];[address] | | LAB | | | | [place] | | [facility] | | | | Blvd;[place] [address] | | LABORATORY | | + + + + + + + + | Specimen | + + | Blood | + + + + + + + | Performing | Address | City/State/Zipcode | Phone Number | | Organization | | | | + + + + + | REFERENCE LAB | [address] | [place] [address] | [phone] | | [facility] | Blvd. | | | | LABORATORY | | | | + + + + + | REFERENCE LAB | [address] [facility] [address] | [place] [address] | | | [facility] | Blvd. | [...] [place] | | | | | | [address] | | | | + + + + + + + + | Specimen | + + | Blood | + + + + + + + | Performing | Address | City/State/Zipcode | Phone Number | | Organization | | | | + + + + + | REFERENCE LAB | [address] | [place] [address] | [phone] | | [facility] | Blvd. | | | | LABORATORY | | | | + + + + + | REFERENCE LAB | [address] [facility] [address] | [place] [address] | | | [facility] | Blvd. | [...] LAB | | | Total | TCL;[address] [facility] | | [facility] | | | | Blvd;[place] [address] | | LABORATORY | | + + + + + + + + | Specimen | + + | Blood | + + + + + + + | Performing | Address | City/State/Zipcode | Phone Number | | Organization | | | | + + + + + | REFERENCE LAB | [address] | [place] [address] | [phone] | | [facility] | Blvd. | | | | LABORATORY | | | | + + + + + | REFERENCE LAB | [address] | [place] [address] | | | [facility] | Blvd. | [...] LAB | | | | TCL;[address] [facility] | | [facility] | | | | Blvd;[place] [address] | | LABORATORY | | + + + + + + + + | Specimen | + + | Blood | + + + + + + + | Performing | Address | City/State/Zipcode | Phone Number | | Organization | | | | + + + + + | REFERENCE LAB | [address] [place] [address] | [place] [address] | [phone] | | [facility] | Blvd. | | | | LABORATORY | | | | + + + + + | REFERENCE LAB | [address] [place] [address] | [place] [address] | | | [facility] | Blvd. | [...] | | | Absolute | performed at [facility];[address] | [address] | LAB | | | | [place] | | [facility] | | | | Blvd;[place] [address] | | LABORATORY | | + + + + + + + + | Specimen | + + | Blood | + + + + + + + | Performing | Address | City/State/Zipcode | Phone Number | | Organization | | | | + + + + + | REFERENCE LAB | [address] [place] [address] | [place] [address] | [phone] | | [facility] | Blvd. | | | | LABORATORY | | | | + + + + + | REFERENCE LAB | [address] [place] [address] | [place] [address] | | | [facility] | Blvd. | [...] REFERENCE | | | | performed at [facility];[address] | | LAB | | | | [place] | | [facility] | | | | Blvd;[place] [address] | | LABORATORY | | + + + + + + + + | Specimen | + + | Blood | + + + + + + + | Performing | Address | City/State/Zipcode | Phone Number | | Organization | | | | + + + + + | REFERENCE LAB | [address] | [place] [address] | [phone] | | [facility] | Blvd. | | | | LABORATORY | | | | + + + + + | REFERENCE LAB | [address] | [place] [address] | | | [facility] | Blvd. | [...] | | | | | performed at [facility];[address] | | | | | | [facility] | | | | | | [facility];[place] [address] | | | | | | | | | | + + + + + + + + | Specimen | + + | Blood | + + + + + + + | Performing | Address | City/State/Zipcode | Phone Number | | Organization | | | | + + + + + | REFERENCE LAB | [address] [place] [address] | [place] [address] | [phone] | | [facility] | Blvd. | | | | LABORATORY | | | | + + + + + | REFERENCE LAB | [address] [place] [address] | [place] [address] | | | [facility] | Blvd. | [...] +-------+--------+ +--------+-------+---------+------+ | BCBS | BCBS | [id number] | 11/05/19 | | | PPO | | | FEDERA | | 19-Pre | | | | | | L FEP | | sent | | | | +-------+--------+ +--------+-------+---------+------+ | AETNA | AETNA | [id number] | | | | PPO | | [...] | Self | [birth year] | [address] | | [place] | al/Fam | | 1995 | [phone] | [address] | | | maría | | | 3 (Home) | [phone] | + +--------+ +--------+ + + Advance Directives + + + + + | Type | Date Recorded | Patient | Explanation | | | | Project Inspector | | + + + + + | Power of | | | | | Linen Manager | | | | + + + + + | Advance | | | | | Directive | | | | + + + + +
--- OUTSIDE RECORDS SUMMARY | ~2019-10-07 | XMS | Encounter Summary ---
Demographics + + + | Address | [address] | | | [place] [address] | + + + | Home Phone [...] Team Providers + +------+ + | Care Clerical Associate Name | Role | Phone | + +------+ + | Eric Bhtati DO | PCP | | + +------+ [...] | lupus | [address] | [place] | | | | | erythematosu | [place], | [address] | | | | | s (HCC) | [place] | Phone: | | | | | Glomerular | [address] | [phone] | | | | | disease in | Phone: | Fax: | | | | | systemic | [phone] | [phone] | | | | | lupus | Fax: | | | | | | erythematosu | [phone] | | | | | | s (HCC) | | | + +--------+ + + + + Encounter Details +--------+---------+ + + + | Date | Type | Department | Care Team | Description | +--------+---------+ + + + | 08/25/ | Office | [facility] | Genevieve Hudson | SLE | | 2019 | Visit | RHEUMATOLOGY [address] | KITTY Hansen [address] | glomerulonephritis | | | | [address] | syndrome (HCC) | | | | [place], [place] | [place] [address] | (Primary Dx); High | | | | [address] | [phone] | risk medication use; | | | | [phone] | | General counselling | | | [...] encounter Patient Instructions Patient Instructions Marco Blair, Chief Compliance Officer - 08/25/2019 2:10 PM PDTWe hop e that you have experienced exceptional care today and that you found our service to be cour teous and helpful. If you have any questions or need medication refills you can send us a message/request u [employer] or call our office at [phone]. To reach Zainab RIOS use ext [phone] To reach Marco RIOS use ext [phone] If you are unable to reach a [...] can also look at your results on [employer]. If you are experiencing an emergency, please [...] in 2011 in [place] then transferred to [facility] for [facility] . PT reports in middle school [...] September 2013, when she established care at 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 Dictation software [employer]/dictation services used, which may contain error for [...] 2018 | Visit | | KITTY Hansen [address] | | | | | | [facility] | | | | | | [place] [address] | | | | | | [phone] | | | | | | | | +--------+---------+ + + + | 11/10/ | Office | Nephrology | Cristian Wallace MD | | | 2019 | Visit | | [address] [facility] | | | | | | [address] [place], [place] | | | | | | [address] | | | | | | | [...]
--- OUTSIDE RECORDS SUMMARY | ~2019-10-07 | XMS | Encounter Summary ---
Demographics + + + | Address | [address] | | | [place] [address] | + + + | Home Phone | | + + + | Preferred Language | Unknown | + + + | Marital Status | | + + + | Uatsdin Affiliation | Unknown | + + + [...] Team Providers + +------+ + | Care Invoice Coder Name | Role | Phone | + [...] 2019 | | [address] | Supervisor Enrobing | glomerulonephritis | | | | [place] | | syndrome (HCC) | | | | [address] | | | | | | [phone] | | | +--------+ + + + [...] | | | | | | [facility] | | | | | | [place] [address] | | | | | | [phone] | | | | | | | | +--------+---------+ + + + | 11/10/ | Office | Nephrology | Cristian Wallace MD | | | 2019 | Visit | | [address] [facility] | | | | | | [address] [place] | | | | | | [address] | | | | | | | [...] | | | | PDT | syndrome ([facility]) | results section. | + +--------+ + + + | CCP ANTIBODIES, IGG | Routin | 07/21/2019 | SLE | Results for this | | IGA | e | 3:01 PM | glomerulonephritis | procedure are in the | | | | PDT | syndrome ([facility]) | results section. | + +--------+ + + + | MARCO, IFA | Routin | 07/21/2019 | SLE | Results for this | | | e | 3:01 PM | glomerulonephritis | procedure are in the | | | | PDT | syndrome ([facility]) | results section. | + +--------+ [...] | | | | PDT | syndrome ([facility]) | results section. | + +--------+ + + + | HEPATITIS C AB | Routin | 07/21/2019 | SLE | Results for this | | | e | 3:01 PM | glomerulonephritis | procedure are in the | | | | PDT | syndrome ([facility]) | results section. | + +--------+ + + + | CISSE AB, IGG | Routin | 07/21/2019 | SLE | Results for this | | | e | 3:01 PM | glomerulonephritis | procedure are in the | | | | PDT | syndrome ([facility]) | results section. | + +--------+ [...] | | | | PDT | syndrome ([facility]) | results section. | + +--------+ [...] | | | | | | Sm, HOSPITAL CLERK, SCL-70, | | | | | | [...] Dot | | | | | | Sp100,r95-haihmj | | | | | | Primary [...] + + + + + + | HOSPITAL CLERK | 0.4 | 0.0 - 0.9 AI [...] | | | | | | | ---------HOSPITAL CLERK | | | | | | | [...] | | | | | | at [facility], [address] | | | | | | [place] | | | | | | [address] | | | | + + + + + + + + | Specimen | + + | | + + + + + + + | Performing | Address | City/State/Zipcode | Phone Number | | Organization | | | | + + + + + | REFERENCE LAB | [address] [facility] | [place] [address] | [phone] | | [facility] | Blvd[address] | | | | LABORATORY | | | | + + + + + | REFERENCE LAB | [address] [facility] | [place] [address] | | | [facility] | Blvd. | [...] | | | | | | Sm, HOSPITAL CLERK, SCL-70, | | | | | | [...] Dot | | | | | | Sp100,i10-hwpfme | | | | | | Primary [...] | | | | | | at [facility], [address] | | | | | | [address], [place] | | | | | | [address] | | | | + + + + + + + + | Specimen | + + | | + + + + + + + | Performing | Address | City/State/Zipcode | Phone Number | | Organization | | | | + + + + + | REFERENCE LAB | [address] [place] [address] | [place] [address] | [phone] | | [facility] | Blvd. | | | | LABORATORY | | | | + + + + + | REFERENCE LAB | [address] [place] [address] | [place] [address] | | | [facility] | Blvd. | [...] | Absolute | performed at [facility];[address] | K/uL | LAB | | | | [facility] | | [facility] | | | | Blvd;[place] [address] | | LABORATORY | | + + + + + + + + | Specimen | + + | Blood | + + + + + + + | Performing | Address | City/State/Zipcode | Phone Number | | Organization | | | | + + + + + | REFERENCE LAB | [address] [place] [address] | [place] [address] | [phone] | | [facility] | Blvd. | | | | LABORATORY | | | | + + + + + | REFERENCE LAB | [address] [place] [address] | [place] [address] | | | [facility] | Blvd. | [...] | | | | | | MDRD IDNV traceable | | | | | | equation.Testing | | | | | | performed at [facility];[address] | | | | | | [facility] | | | | | | [facility];[place] [address] | | | | | | | | | | + + + + + + + + | Specimen | + + | Blood | + + + + + + + | Performing | Address | City/State/Zipcode | Phone Number | | Organization | | | | + + + + + | REFERENCE LAB | [address] [place] [address] | [place] [address] | [phone] | | [facility] | Blvd. | | | | LABORATORY | | | | + + + + + | REFERENCE LAB | [address] [place] [address] | [place] [address] | | | [facility] | Blvd. | [...] | | | performed at [facility];[address] | | LAB | | | | [place] | | [facility] | | | | Blvd;[place] [address] | | LABORATORY | | + + + + + + + + | Specimen | + + | Blood | + + + + + + + | Performing | Address | City/State/Zipcode | Phone Number | | Organization | | | | + + + + + | REFERENCE LAB | [address] [facility] | [place] [address] | [phone] | | [facility] | Blvd. | | | | LABORATORY | | | | + + + + + | REFERENCE LAB | [address] [facility] | [place] [address] | | | [facility] | Blvd. | [...] | | | performed at [facility];[address] | | LAB | | | | [place] | | [facility] | | | | Blvd;[place] [address] | | LABORATORY | | + + + + + + + + | Specimen | + + | Blood | + + + + + + + | Performing | Address | City/State/Zipcode | Phone Number | | Organization | | | | + + + + + | REFERENCE LAB | [address] [place] [address] | [place] [address] | [phone] | | [facility] | Blvd. | | | | LABORATORY | | | | + + + + + | REFERENCE LAB | [address] [place] [address] | [place] [address] | | | [facility] | Blvd. | [...] [place] | | | | | | [address] | | | | + + + + + + + + | Specimen | + + | Blood | + + + + + + + | Performing | Address | City/State/Zipcode | Phone Number | | Organization | | | | + + + + + | REFERENCE LAB | [address] [place] [address] | [place] [id number] | [phone] | | [facility] | Blvd. | | | | LABORATORY | | | | + + + + + | REFERENCE LAB | [address] [place] [address] | [place] [address] | | | [facility] | Blvd. | [...] | | | | | performed at [facility], [address] | | | | | | [place] | | | | | | [place] [address] | | | | + + + + + + + + | Specimen | + + | Blood | + + + + + + + | Performing | Address | City/State/Zipcode | Phone Number | | Organization | | | | + + + + + | REFERENCE LAB | [address] [facility] | [place] [address] | [phone] | | [facility] | Blvd. | | | | LABORATORY | | | | + + + + + | REFERENCE LAB | [address] [facility] | [place] [address] | | | [facility] | Blvd. | [...] | | | ANTIBODY | performed at [facility], [address] | | LAB | | | | [facility] | | [facility] | | | | [place] [address] | | LABORATORY | | + + + + + + + + | Specimen | + + | Blood | + + + + + + + | Performing | Address | City/State/Zipcode | Phone Number | | Organization | | | | + + + + + | REFERENCE LAB | [address] [place] [address] | [place] [address] | [phone] | | [facility] | Blvd. | | | | LABORATORY | | | | + + + + + | REFERENCE LAB | [address] [place] [address] | [place] [address] | | | [facility] | Blvd. | [...] | | | COMPLEMENT | performed at [facility];[address] | | LAB | | | | [place] | | [facility] | | | | Blvd;[place] [address] | | LABORATORY | | + + + + + + + + | Specimen | + + | Blood | + + + + + + + | Performing | Address | City/State/Zipcode | Phone Number | | Organization | | | | + + + + + | REFERENCE LAB | [address] [place] [address] | [place] [address] | [phone] | | [facility] | Blvd. | | | | LABORATORY | | | | + + + + + | REFERENCE LAB | [address] [place] [address] | [place] [address] | | | [facility] | Blvd. | [...] | | | | | | at [facility], [address] | | | | | | [place] | | | | | | [address] | | | | + + + + + + + + | Specimen | + + | Blood | + + + + + + + | Performing | Address | City/State/Zipcode | Phone Number | | Organization | | | | + + + + + | REFERENCE LAB | [address] [facility] | [place] [address] | [phone] | | [facility] | Blvd. | | | | LABORATORY | | | | + + + + + | REFERENCE LAB | [address] [facility] | [place] [address] | | | [facility] | Blvd. | [...] | | | performed at [facility];[address] | | | | | | [facility] | | | | | | Blvd;[place] [address] | | | | | | | | | | + + + + + + + + | Specimen | + + | Blood | + + + + + + + | Performing | Address | City/State/Zipcode | Phone Number | | Organization | | | | + + + + + | REFERENCE LAB | [address] [facility] | [place] [address] | [phone] | | [facility] | Blvd. | | | | LABORATORY | | | | + + + + + | REFERENCE LAB | [address] [facility] | [place] [address] | | | [facility] | Blvd. | [...] | | LAB | | | | TCL;[address] [place] [address] | | [facility] | | | | Blvd;[place] [address] | | LABORATORY | | + + + + + + + + | Specimen | + + | Blood | + + + + + + + | Performing | Address | City/State/Zipcode | Phone Number | | Organization | | | | + + + + + | REFERENCE LAB | [address] [facility] | [place] [address] | [phone] | | [facility] | Blvd. | | | | LABORATORY | | | | + + + + + | REFERENCE LAB | [address] [facility] | [place] [address] | | | [facility] | Blvd. | [...] | | | Total | TCL;[address] [facility] | | [facility] | | | | Blvd;[place] [address] | | LABORATORY | | + + + + + + + + | Specimen | + + | Blood | + + + + + + + | Performing | Address | City/State/Zipcode | Phone Number | | Organization | | | | + + + + + | REFERENCE LAB | [address] [place] [address] | [place] [address] | [phone] | | [facility] | Blvd. | | | | LABORATORY | | | | + + + + + | REFERENCE LAB | [address] [place] [address] | [place] [address] | | | [facility] | Blvd. | [...] | | | | | validated by [facility] | | | | | | Diagnostics, [...] | | | | | performed at [facility] | | | | | | [employer] [facility], [address] | | | | | | [facility] | | | | | | [address],[place], [place] | | | | | | [phone]. | | | | + + + + + + + + | Specimen | + + | Blood | + + + + + + + | Performing | Address | City/State/Zipcode | Phone Number | | Organization | | | | + + + + + | REFERENCE LAB | [address] [place] [address] | [place] [address] | [phone] | | [facility] | Blvd. | | | | LABORATORY | | | | + + + + + | REFERENCE LAB | [address] [facility] | [place] [address] | | | [facility] | Blvd. | [...] | | | | | | by [facility], [address] | | | | | | [place] | | | | | | [address] | | | | + + + + + + + + | Specimen | + + | Blood | + + + + + + + | Performing | Address | City/State/Zipcode | Phone Number | | Organization | | | | + + + + + | REFERENCE LAB | [address] [place] [address] | [place] [address] | [phone] | | [facility] | Blvd. | | | | LABORATORY | | | | + + + + + | REFERENCE LAB | [address] [place] [address] | [place] [address] | | | [facility] | Blvd. | | | | LABORATORY | | | | + + + + + documented in this encounter Visit Diagnoses + + | Diagnosis | + + | SLE glomerulonephritis syndrome (HCC) Systemic lupus erythematosus | + + documented in this encounter"
--- OUTSIDE RECORDS SUMMARY | ~2019-10-07 | XMS | Encounter Summary ---
Demographics + + + | Address | [address] | | | [place] [address] | + + + | Home Phone | | + + + | Preferred Language | Unknown | + + + | Marital Status | | + + + | Alevism Affiliation | Unknown | + + + | Race | Unknown | + + + | Ethnic Group | Unknown | + + + Author + + + | Author | [facility] | | | and [place] | + + + | Organization | [facility] | | | [...] Team Providers + +------+ + | Care Infant Caregiver Name | Role | Phone | + [...] + + | 09/26/ | Telephone | [facility] | Cristian Wallace MD | Other (Appointment | | 2019 | | NEPHROLOGY [place] | [address] [place] | reminder call ) | | | | [address] | [address] [place], [place] | | | | | [address] | [address] | | | | | [place], [place] | | | | | | [address] | | | | | | [phone] | | | +--------+ + + + [...] 2019 | Visit | | KITTY Hansen [address] | | | | | | [facility] | | | | | | [place] [address] | | | | | | [phone] | | | | | | | | +--------+---------+ + + + | 11/10/ | Office | Nephrology | Cristian Wallace MD | | | 2019 | Visit | | [address] [facility] | | | | | | [address] [facility] [place] | | | | | | [address] | | | | | | | | +--------+---------+ + + + documented as of this encounter Visit Diagnoses Not on filedocumented in this encounter"
--- OUTSIDE RECORDS SUMMARY | ~2019-10-07 | XMS | Encounter Summary ---
Demographics + + + | Address | [address] | | | [place] [address] | + + + | Home Phone | | + + + | Preferred Language | Unknown | + + + | Marital Status | | + + + | Lutheran Affiliation | Unknown | + + + [...] Team Providers + +------+ + | Care Floor Scrubber Name | Role | Phone | + [...] + + | 09/26/ | Telephone | [facility] | Cristian Wallace MD | Other (Appointment | | 2019 | | NEPHROLOGY [place] | [address] | reminder call ) | | | | [address] | [address] [place], [place] | | | | | [address] | [address] | | | | | [place], [place] | | | | | | [address] | | | | | | [phone] | | | +--------+ + + + [...] | 10/20/ | Office | Rheumatology | Genveieve Hudson | | | 2019 | Visit | | KITTY Hansen [address] | | | | | | [facility] | | | | | | [place] [address] | | | | | | [phone] | | | | | | | | +--------+---------+ + + + | 11/10/ | Office | Nephrology | Cristian Wallace MD | | | 2019 | Visit | | [address] [facility] | | | | | | [address] [facility], [place] | | | | | | [address] | | | | | | | | +--------+---------+ + + + documented as of this encounter Visit Diagnoses Not on filedocumented in this encounter"
--- OUTSIDE RECORDS SUMMARY | ~2019-10-07 | XMS | Encounter Summary ---
Demographics + + + | Address | [address] | | | [place] [address] | + + + | Home Phone | | + + + | Preferred Language | Unknown | + + + | Marital Status | | + + + | Catholic Affiliation | Unknown | + + + | Race | Unknown | + + + | Ethnic Group | Unknown | + + + Author + + + | Author | [facility] | | | and [place] | + + + | Organization | [facility] | | | [...] Team Providers + +------+ + | Care Special Client Bus Driver Name | Role | Phone | + +------+ + | Eric Bhatti DO | PCP | | + +------+ + Encounter Details +--------+ + + + + | Date | Type | Department | Care Team | Description | +--------+ + + + + | 07/01/ | Orders Only | [facility] | Cristian Wallace MD | 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
--- OUTSIDE RECORDS SUMMARY | ~2019-10-07 | XMS | Encounter Summary ---
Demographics + + + | Address | [address] | | | [place] [address] | + + + | Home Phone | | + + + | Preferred Language | Unknown | + + + | Marital Status | | + + + | Hoahaoism Affiliation | Unknown | + + + | Race | Unknown | + + + | Ethnic Group | Unknown | + + + Author + + + | Author | [facility] | | | and [place] | + + + | Organization | [facility] | | | [...] Team Providers + +------+ + | Care Refrigeration Person Name | Role | Phone | + [...] | lupus | [address] | [place] | | | | | erythematosu | [place], | [address] | | | | | s (HCC) | [place] | Phone: | | | | | Glomerular | [address] | [phone] | | | | | disease in | Phone: | Fax: | | | | | systemic | [phone] | [phone] | | | | | lupus | Fax: | | | | | | erythematosu | [phone] | | | | | | s (HCC) | | | + +--------+ + + + + Encounter Details +--------+---------+ + + + | Date | Type | Department | Care Team | Description | +--------+---------+ + + + | 07/21/ | Office | [facility] | Bianca Cardona | SLE | | 2019 | Visit | RHEUMATOLOGY [address] | MD Juve [address] | glomerulonephritis | | | | [address] | syndrome (HCC) | | | | [place] | [place] [address] | (Primary Dx); High | | | | [address] | [phone] | risk medication use; | | | | [phone] | | General counselling | | | [...] encounter Patient Instructions Patient Instructions Stephany Sin, Physical Integration Practitioner - 07/21/2019 2:30 PM PDTWe hope t hat you have experienced exceptional care today and that you found our service to be courteo us and helpful. If you have any questions, you can send us a message/request using ShelfFlip or call our o ffice at [phone]. To reach the Physical Integration Practitioner , dial phmyayisk - [phone]- Stephany PASCAL If you are unable to [...] You can also review your results on Link Triggerhart. If you are experiencing an emergency, please [...] with Lupus and RA in 2011 in [place] then transferred to [facility] for college. 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) 2011 Osteoarthritis Proteinuria Rheumatoid arthritis ([facility]) 2011 Past Surgical History: Procedure Laterality Date [...] Clarity, UA 06/23/2019 slightly cloudy Final Specific [place] 06/23/2019 1.026 1.005 - 1.030 Final pH, [...] treatment plan. Patient understands that treatment is buttermaker continuous churn and if he/she fails to continue regimen , the disease has prop ensity to flare resulting in buttermaker continuous churn consequences and functionality limitation. - CBC with [...] will need to be seen by an electric train driver at least once a year. Other side [...] is both accurate and complete. Dictation software [employer]/dictation services used, which may contain error for [...] | | | | | [place] [address] | | | | | | [phone] | | | | | | | | +--------+---------+ + + + | 11/10/ | Office | Nephrology | Cristian Wallace MD | | | 2019 | Visit | | [address] [facility] [address] | | | | | | [address] [place], [place] | | | | | | [address] | | | | | | | [...] | | | | | | by Jada Beauty, [facility] Adan | | | | | | [facility] | | | | | | [address] | | | | + + + + + + + + | Specimen | + + | Blood | + + + + + + + | Performing | Address | City/State/Zipcode | Phone Number | | Organization | | | | + + + + + | REFERENCE LAB | [address] | [place] [address] | [phone] | | [facility] | [place] | | | | LABORATORY | | | | + + + + + | REFERENCE LAB | [address] [facility] | [place] [address] | | | [facility] | Blvd. | [...] | | | | | validated by [employer] | | | | | | [employer] This | | | | | [...] by | | | | | | [employer] | | | | | | Inc.Borderline/Equivocal | | | | | | RF results warrant | | | | | | redraw and retestingto | | | | | | confirm.Testing | | | | | | performed at [employer] | | | | | | [employer], [address] | | | | | | [facility] | | | | | | [address],[place], [place] | | | | | | [phone]. | | | | + + + + + + + + | Specimen | + + | Blood | + + + + + + + | Performing | Address | City/State/Zipcode | Phone Number | | Organization | | | | + + + + + | REFERENCE LAB | [address] [place] [address] | [place] [address] | [phone] | | [facility] | Blvd. | | | | LABORATORY | | | | + + + + + | REFERENCE LAB | [address] [place] [address] | [place] [address] | | | [facility] | Blvd. | [...] | LAB | | | Total | TCL;[address] [facility] | | [facility] | | | | Blvd;[place] [address] | | LABORATORY | | + + + + + + + + | Specimen | + + | Blood | + + + + + + + | Performing | Address | City/State/Zipcode | Phone Number | | Organization | | | | + + + + + | REFERENCE LAB | [address] [facility] | [place] [address] | [phone] | | [facility] | Blvd. | | | | LABORATORY | | | | + + + + + | REFERENCE LAB | [address] [place] [address] | [place] [address] | | | [facility] | Blvd. | [...] [facility] | | | | Blvd;[place] [address] | | LABORATORY | | + + + + + + + + | Specimen | + + | Blood | + + + + + + + | Performing | Address | City/State/Zipcode | Phone Number | | Organization | | | | + + + + + | REFERENCE LAB | [address] [place] [address] | [place] [address] | [phone] | | [facility] | Blvd. | | | | LABORATORY | | | | + + + + + | REFERENCE LAB | [address] [facility] | [place] [address] | | | [facility] | Blvd. | [...] | | | | | performed at [facility];[address] | | | | | | [address] | | | | | | [address];[place] [address] | | | | | | | | | | + + + + + + + + | Specimen | + + | Blood | + + + + + + + | Performing | Address | City/State/Zipcode | Phone Number | | Organization | | | | + + + + + | REFERENCE LAB | [address] [facility] | [place] [address] | [phone] | | [facility] | Blvd. | | | | LABORATORY | | | | + + + + + | REFERENCE LAB | [address] [facility] | [place] [address] | | | [facility] | Blvd. | [...] [place] | | | | | | [address] | | | | + + + + + + + + | Specimen | + + | Blood | + + + + + + + | Performing | Address | City/State/Zipcode | Phone Number | | Organization | | | | + + + + + | REFERENCE LAB | [address] [place] [address] | [place] [address] | [phone] | | [facility] | Blvd. | | | | LABORATORY | | | | + + + + + | REFERENCE LAB | [address] [place] [address] | [place] [address] | | | [facility] | Blvd. | [...] | | [facility] | | | | Blvd;[place] [address] | | LABORATORY | | + + + + + + + + | Specimen | + + | Blood | + + + + + + + | Performing | Address | City/State/Zipcode | Phone Number | | Organization | | | | + + + + + | REFERENCE LAB | [address] [place] [address] | [place] [address] | [phone] | | [facility] | Blvd. | | | | LABORATORY | | | | + + + + + | REFERENCE LAB | [address] [place] [address] | [place] [address] | | | [facility] | Blvd. | [...] | | | ANTIBODY | performed at [facility], [address] | | LAB | | | | [facility] | | [facility] | | | | [place] [address] | | LABORATORY | | + + + + + + + + | Specimen | + + | Blood | + + + + + + + | Performing | Address | City/State/Zipcode | Phone Number | | Organization | | | | + + + + + | REFERENCE LAB | [address] [facility] | [place] [address] | [phone] | | [facility] | Blvd. | | | | LABORATORY | | | | + + + + + | REFERENCE LAB | [address] [facility] | [place] [address] | | | [facility] | Blvd. | [...] | | | | | performed at [facility], [address] | | | | | | [facility] | | | | | | [place] [address] | | | | + + + + + + + + | Specimen | + + | Blood | + + + + + + + | Performing | Address | City/State/Zipcode | Phone Number | | Organization | | | | + + + + + | REFERENCE LAB | [address] [place], [place] [address] | [place] [address] | [phone] | | [facility] | Blvd. | | | | LABORATORY | | | | + + + + + | REFERENCE LAB | [address] [facility] | [place] [address] | | | [facility] | [...] at | | | | | | [facility], [address] | | | | | | [facility] [place] | | | | | | [address] | | | | + + + + + + + + | Specimen | + + | Blood | + + + + + + + | Performing | Address | City/State/Zipcode | Phone Number | | Organization | | | | + + + + + | REFERENCE LAB | [address] [facility] | [place] [address] | [phone] | | [facility] | Blvd. | | | | LABORATORY | | | | + + + + + | REFERENCE LAB | [address] [facility] | [place] [address] | | | [facility] | Blvd. | [...] [facility] | | | | Blvd;[place] [address] | | LABORATORY | | + + + + + + + + | Specimen | + + | Blood | + + + + + + + | Performing | Address | City/State/Zipcode | Phone Number | | Organization | | | | + + + + + | REFERENCE LAB | [address] [place] [address] | [place] [address] | [phone] | | [facility] | Blvd. | | | | LABORATORY | | | | + + + + + | REFERENCE LAB | [address] [place] [address] | [place] [address] | | | [facility] | Blvd. | [...] REFERENCE | | | | performed at [facility];[address] | | LAB | | | | [place] | | [facility] | | | | Blvd;[place] [address] | | LABORATORY | | + + + + + + + + | Specimen | + + | Blood | + + + + + + + | Performing | Address | City/State/Zipcode | Phone Number | | Organization | | | | + + + + + | REFERENCE LAB | [address] [place] [address] | [place] [address] | [phone] | | [facility] | Blvd. | | | | LABORATORY | | | | + + + + + | REFERENCE LAB | [address] [place] [address] | [place] [address] | | | [facility] | Blvd. | [...] | | | | | performed at [facility];[address] | | | | | | [facility] | | | | | | Blvd;[place] [address] | | | | | | | | | | + + + + + + + + | Specimen | + + | Blood | + + + + + + + | Performing | Address | City/State/Zipcode | Phone Number | | Organization | | | | + + + + + | REFERENCE LAB | [address] [facility] | [place] [address] | [phone] | | [facility] | Blvd. | | | | LABORATORY | | | | + + + + + | REFERENCE LAB | [address] [facility] | [place] [address] | | | [facility] | Blvd. | [...] | | | Absolute | performed at [facility];[address] | K[address]uL | LAB | | | | [place] | | [facility] | | | | Blvd;[place] [address] | | LABORATORY | | + + + + + + + + | Specimen | + + | Blood | + + + + + + + | Performing | Address | City/State/Zipcode | Phone Number | | Organization | | | | + + + + + | REFERENCE LAB | [address] [facility] | [place] [address] | [phone] | | [facility] | Blvd. | | | | LABORATORY | | | | + + + + + | REFERENCE LAB | [address] | [place] [address] | | | [facility] | Blvd. | | | | LABORATORY [...]
--- OUTSIDE RECORDS SUMMARY | ~2019-10-07 | XMS | Encounter Summary ---
Demographics + + + | Address | [address] | | | [place] [address] | + + + | Home Phone | | + + + | Preferred Language | Unknown | + + + | Marital Status | | + + + | Congregation Affiliation | Unknown | + + + | Race | Unknown | + + + | Ethnic Group | Unknown | + + + Author + + + | Author | [facility] | | | and [place] | + + + | Organization | [facility] | | | [...] Team Providers + +------+ + | Care Sharepoint Trainer Name | Role | Phone | [...] 2019 | | [address] | Vegetable Worker | glomerulonephritis | | | | [place] | | syndrome (HCC) | | | | [address] | | | | | | [phone] | | | +--------+ + + + [...] | | | | | | [facility] | | | | | | [place] [address] | | | | | | [phone] | | | | | | | | +--------+---------+ + + + | 11/10/ | Office | Nephrology | Cristian Wallace MD | | | 2019 | Visit | | [address] [facility] | | | | | | [address] [place] | | | | | | [address] | | | | | | | [...] | | | | PDT | syndrome ([facility]) | results section. | + +--------+ + + + | CCP ANTIBODIES, IGG | Routin | 07/21/2019 | SLE | Results for this | | IGA | e | 3:01 PM | glomerulonephritis | procedure are in the | | | | PDT | syndrome ([facility]) | results section. | + +--------+ + + + | MARCO, IFA | Routin | 07/21/2019 | SLE | Results for this | | | e | 3:01 PM | glomerulonephritis | procedure are in the | | | | PDT | syndrome ([facility]) | results section. | + +--------+ + [...] | | | | PDT | syndrome ([facility]) | results section. | + +--------+ + + + | HEPATITIS C AB | Routin | 07/21/2019 | SLE | Results for this | | | e | 3:01 PM | glomerulonephritis | procedure are in the | | | | PDT | syndrome ([facility]) | results section. | + +--------+ + + + | CISSE AB, IGG | Routin | 07/21/2019 | SLE | Results for this | | | e | 3:01 PM | glomerulonephritis | procedure are in the | | | | PDT | syndrome ([facility]) | results section. | + +--------+ + [...] | | | | PDT | syndrome ([facility]) | results section. | + +--------+ + [...] | | | | | | Sm, CHANGE CONTROL MANAGER, SCL-70, | | | | | | [...] Dot | | | | | | Sp100,z60-ccrmad | | | | | | Primary [...] + + + + + + | CHANGE CONTROL MANAGER | 0.4 | 0.0 - 0.9 AI [...] | | | | | | | ---------CHANGE CONTROL MANAGER | | | | | | | [...] | | | | | | at [facility], [address] | | | | | | [place] | | | | | | [address] | | | | + + + + + + + + | Specimen | + + | | + + + + + + + | Performing | Address | City/State/Zipcode | Phone Number | | Organization | | | | + + + + + | REFERENCE LAB | [address] [facility] | [place] [address] | [phone] | | [facility] | Bl[address] | | | | LABORATORY | | | | + + + + + | REFERENCE LAB | [address] [facility] | [place] [address] | | | [facility] | Blvd. | [...] | | | | | | Sm, CHANGE CONTROL MANAGER, SCL-70, | | | | | | [...] Dot | | | | | | Sp100,x05-vchjhz | | | | | | Primary [...] | | | | | | at [facility], [address] | | | | | | [address], [place] | | | | | | [address] | | | | + + + + + + + + | Specimen | + + | | + + + + + + + | Performing | Address | City/State/Zipcode | Phone Number | | Organization | | | | + + + + + | REFERENCE LAB | [address] [place] [address] | [place] [address] | [phone] | | [facility] | Blvd[address] | | | | LABORATORY | | | | + + + + + | REFERENCE LAB | [address] [place] [address] | [place] [address] | | | [facility] | Blvd. | [...] performed at [facility];[address] | [address] | LAB | | | | [facility] | | [facility] | | | | Bl[address];[place] [address] | | LABORATORY | | + + + + + + + + | Specimen | + + | Blood | + + + + + + + | Performing | Address | City/State/Zipcode | Phone Number | | Organization | | | | + + + + + | REFERENCE LAB | [address] [place] [address] | [place] [address] | [phone] | | [facility] | Blvd. | | | | LABORATORY | | | | + + + + + | REFERENCE LAB | [address] [place] [address] | [place] [address] | | | [facility] | Blvd. | [...] | | | | | | MDRD IDSC traceable | | | | | | equation.Testing | | | | | | performed at [facility];[address] | | | | | | [facility] | | | | | | [facility];[place] [address] | | | | | | | | | | + + + + + + + + | Specimen | + + | Blood | + + + + + + + | Performing | Address | City/State/Zipcode | Phone Number | | Organization | | | | + + + + + | REFERENCE LAB | [address] [place] [address] | [place] [address] | [phone] | | [facility] | Blvd. | | | | LABORATORY | | | | + + + + + | REFERENCE LAB | [address] [place] [address] | [place] [address] | | | [facility] | Blvd. | [...] performed at [facility];[address] | | LAB | | | | [place] | | [facility] | | | | Blvd;[place] [address] | | LABORATORY | | + + + + + + + + | Specimen | + + | Blood | + + + + + + + | Performing | Address | City/State/Zipcode | Phone Number | | Organization | | | | + + + + + | REFERENCE LAB | [address] [facility] | [place] [address] | [phone] | | [facility] | Blvd. | | | | LABORATORY | | | | + + + + + | REFERENCE LAB | [address] [facility] | [place] [address] | | | [facility] | Blvd. | [...] performed at [facility];[address] | | LAB | | | | [place] | | [facility] | | | | Blvd;[place] [address] | | LABORATORY | | + + + + + + + + | Specimen | + + | Blood | + + + + + + + | Performing | Address | City/State/Zipcode | Phone Number | | Organization | | | | + + + + + | REFERENCE LAB | [address] [place] [address] | [place] [address] | [phone] | | [facility] | Blvd. | | | | LABORATORY | | | | + + + + + | REFERENCE LAB | [address] [place] [address] | [place] [address] | | | [facility] | Blvd. | [...] [place] | | | | | | [address] | | | | + + + + + + + + | Specimen | + + | Blood | + + + + + + + | Performing | Address | City/State/Zipcode | Phone Number | | Organization | | | | + + + + + | REFERENCE LAB | [address] [place] [address] | [place] [id number] | [phone] | | [facility] | Blvd. | | | | LABORATORY | | | | + + + + + | REFERENCE LAB | [address] [place] [address] | [place] [address] | | | [facility] | Blvd. | [...] | | | | | | [place] [address] | | | | + + + + + + + + | Specimen | + + | Blood | + + + + + + + | Performing | Address | City/State/Zipcode | Phone Number | | Organization | | | | + + + + + | REFERENCE LAB | [address] [facility] | [place] [address] | [phone] | | [facility] | Blvd. | | | | LABORATORY | | | | + + + + + | REFERENCE LAB | [address] [facility] | [place] [address] | | | [facility] | Blvd. | [...] | | LAB | | | | [facility] | | [facility] | | | | [place] [address] | | LABORATORY | | + + + + + + + + | Specimen | + + | Blood | + + + + + + + | Performing | Address | City/State/Zipcode | Phone Number | | Organization | | | | + + + + + | REFERENCE LAB | [address] [place] [address] | [place] [address] | [phone] | | [facility] | Blvd. | | | | LABORATORY | | | | + + + + + | REFERENCE LAB | [address] [place] [address] | [place] [address] | | | [facility] | Blvd. | [...] performed at [facility];[address] | | LAB | | | | [place] | | [facility] | | | | Blvd;[place] [address] | | LABORATORY | | + + + + + + + + | Specimen | + + | Blood | + + + + + + + | Performing | Address | City/State/Zipcode | Phone Number | | Organization | | | | + + + + + | REFERENCE LAB | [address] [place] [address] | [place] [address] | [phone] | | [facility] | Blvd. | | | | LABORATORY | | | | + + + + + | REFERENCE LAB | [address] [place] [address] | [place] [address] | | | [facility] | Blvd. | [...] | | | | | | at [facility], [address] | | | | | | [place] | | | | | | [address] | | | | + + + + + + + + | Specimen | + + | Blood | + + + + + + + | Performing | Address | City/State/Zipcode | Phone Number | | Organization | | | | + + + + + | REFERENCE LAB | [address] [facility] | [place] [address] | [phone] | | [facility] | Blvd. | | | | LABORATORY | | | | + + + + + | REFERENCE LAB | [address] [facility] | [place] [address] | | | [facility] | Blvd. | [...] performed at [facility];[address] | | | | | | [facility] | | | | | | Blvd;[place] [address] | | | | | | | | | | + + + + + + + + | Specimen | + + | Blood | + + + + + + + | Performing | Address | City/State/Zipcode | Phone Number | | Organization | | | | + + + + + | REFERENCE LAB | [address] [facility] | [place] [address] | [phone] | | [facility] | Blvd. | | | | LABORATORY | | | | + + + + + | REFERENCE LAB | [address] [facility] | [place] [address] | | | [facility] | Blvd. | [...] | | LAB | | | | TCL;[address] [place] [address] | | [facility] | | | | Blvd;[place] [address] | | LABORATORY | | + + + + + + + + | Specimen | + + | Blood | + + + + + + + | Performing | Address | City/State/Zipcode | Phone Number | | Organization | | | | + + + + + | REFERENCE LAB | [address] [facility] | [place] [address] | [phone] | | [facility] | Blvd. | | | | LABORATORY | | | | + + + + + | REFERENCE LAB | [address] [facility] | [place] [address] | | | [facility] | Blvd. | [...] | | | Total | TCL;[address] [facility] | | [facility] | | | | Blvd;[place] [address] | | LABORATORY | | + + + + + + + + | Specimen | + + | Blood | + + + + + + + | Performing | Address | City/State/Zipcode | Phone Number | | Organization | | | | + + + + + | REFERENCE LAB | [address] [place] [address] | [place] [address] | [phone] | | [facility] | Blvd. | | | | LABORATORY | | | | + + + + + | REFERENCE LAB | [address] [place] [address] | [place] [address] | | | [facility] | Blvd. | [...] | | | | | validated by [facility] | | | | | | [...] | | | | | performed at [facility] | | | | | | [employer] [facility], [address] | | | | | | [facility] | | | | | | [address],[place], [place] | | | | | | [phone]. | | | | + + + + + + + + | Specimen | + + | Blood | + + + + + + + | Performing | Address | City/State/Zipcode | Phone Number | | Organization | | | | + + + + + | REFERENCE LAB | [address] [place] [address] | [place] [address] | [phone] | | [facility] | Blvd. | | | | LABORATORY | | | | + + + + + | REFERENCE LAB | [address] [facility] | [place] [address] | | | [facility] | Blvd. | [...] | | | | | | [facility], [address] | | | | | | [place] | | | | | | [address] | | | | + + + + + + + + | Specimen | + + | Blood | + + + + + + + | Performing | Address | City/State/Zipcode | Phone Number | | Organization | | | | + + + + + | REFERENCE LAB | [address] [place] [address] | [place] [address] | [phone] | | [facility] | Blvd. | | | | LABORATORY | | | | + + + + + | REFERENCE LAB | [address] [place] [address] | [place] [address] | | | [facility] | Blvd. | | | | LABORATORY | | | | + + + + + documented in this encounter Visit Diagnoses + + | Diagnosis | + + | SLE glomerulonephritis syndrome (HCC) Systemic lupus erythematosus | + + documented in this encounter"
--- OUTSIDE RECORDS SUMMARY | ~2019-10-07 | XMS | Encounter Summary ---
Demographics + + + | Address | [address] | | | [place] [address] | + + + | Home Phone | | + + + | Preferred Language | Unknown | + + + | Marital Status | | + + + | Spiritism Affiliation | Unknown | + + + | Race | Unknown | + + + | Ethnic Group | Unknown | + + + Author + + + | Author | [facility] | | | and [place] | + + + | Organization | [facility] | | [...] Team Providers + +------+ + | Care Ice Cream Chef Name | Role | Phone | + [...] + + | 10/06/ | Documentati | [facility] | Marcial, | Results (10/01/19) | | 2019 | on | NEPHROLOGY [place] | [facility] | | | | | [address] | [address] | | | | | [address] | | | | | | [place], [place] | | | | | | [address] | | | | | | [phone] | | | +--------+ + + + [...] 2018 | Visit | | KITTY Hansen [address] | | | | | | [facility] | | | | | | [place] [address] | | | | | | [phone] | | | | | | | | +--------+---------+ + + + | 11/10/ | Office | Nephrology | Cristian Wallace MD | | | 2019 | Visit | | [address] [facility] | | | | | | [address] [place] | | | | | | [address] | | | | | | | [...] 1.001 - 1.030 | | | | [place] | | | | | + + [...]
--- OUTSIDE RECORDS SUMMARY | ~2019-10-07 | XMS | Encounter Summary ---
Demographics + + + | Address | [address] | | | [place] [address] | + + + | Home Phone | | + + + | Preferred Language | Unknown | + + + | Marital Status | | + + + | Temple Affiliation | Unknown | + + + | Race | Unknown | + + + | Ethnic Group | Unknown | + + + Author + + + | Author | [facility] | | | and [place] | + + + | Organization | [facility] | | | and [...] Team Providers + +------+ + | Care Md Do Resident Urgent Care Name | Role | Phone | + [...] | lupus | [address] | [place] | | | | | erythematosu | [place], | [address] | | | | | s (HCC) | [place] | Phone: | | | | | Glomerular | [address] | [phone] | | | | | disease in | Phone: | Fax: | | | | | systemic | [phone] | [phone] | | | | | lupus | Fax: | | | | | | erythematosu | [phone] | | | | | | s (HCC) | | | + +--------+ + + + + Encounter Details +--------+---------+ + + + | Date | Type | Department | Care Team | Description | +--------+---------+ + + + | 07/21/ | Office | [facility] | Bianca Cardona | SLE | | 2019 | Visit | R[address]UMATOLOGY [address] | MD [address]ve [address] | glomerulonephritis | | | | [address] | syndrome (HCC) | | | | [place] | [place] [address] | (Primary Dx); High | | | | [address] | [phone] | risk medication use; | | | | [phone] | | General counselling | | | [...] encounter Patient Instructions Patient Instructions Stephany Sin, Metal Can Inspector - 07/21/2019 2:30 PM PDTWe hope t hat you have experienced exceptional care today and that you found our service to be courteo us and helpful. If you have any questions, you can send us a message/request using [employer] or call our o ffice at [phone]. To reach the Metal Can Inspector , dial esexvbscf - [phone]- Stephany PASCAL If you are unable to [...] You can also review your results on WSO2hart. If you are experiencing an emergency, please call 911 documented in this encounter Progress Notes Bianca Cardona MD - 07/21/2019 2:30 PM PDTFormatting of this note might be differe nt from the original. Rheumatology New Patient / Outpatient CONSULT Referred by: Dr Eirc Bhatti DO CC: lupus nephritis, transfer of care HPI: Brook Berman is a 23 y.o. female who is being seen for the above. [place] then transferred to [facility] for college. PT rep orts in middle [...] has history of lupus nephritis and MANAGER LAB lupus. She had a MANAGER LAB lupus flare in 2014, improved with a [...] September 2013, when she established care at [facility], both CellCept and HCQ were [...] Check TSH - Advised to see a silver solution mixer if this recurs and if the TSH [...] Diagnosis Date Anemia Lupus (systemic lupus erythematosus) ([facility]) 2011 Osteoarthritis Proteinuria Rheumatoid arthritis ([facility]) 2011 Past Surgical History: Procedure Laterality Date [...] Clarity, UA 06/23/2019 slightly cloudy Final Specific [place] 06/23/2019 1.026 1.005 - 1.030 Final pH, [...] plan. Patient understands that treatment is terminal worker and if he/she fails to continue regimen , the disease has prop ensity to flare resulting in terminal worker consequences and functionality limitation. - CBC with [...] will need to be seen by an bay stocker at least once a year. Other side [...] is both accurate and complete. Dictation software mktgon/dictation services used, which may contain error for [...] | | | | | [place] [address] | | | | | | [phone] | | | | | | | | +--------+---------+ + + + | 11/10/ | Office | Nephrology | Cristian Wallace MD | | | 2019 | Visit | | [address] [facility] [address] | | | | | | [address] [place], [place] | | | | | | [address] | | | | | | | [...] | | | | | | by [employer] [facility] | | | | | | [facility] | | | | | | [address] | | | | + + + + + + + + | Specimen | + + | Blood | + + + + + + + | Performing | Address | City/State/Zipcode | Phone Number | | Organization | | | | + + + + + | REFERENCE LAB | [address] | [place] [address] | [phone] | | [facility] | [place] | | | | LABORATORY | | | | + + + + + | REFERENCE LAB | [address] [facility] | [place] [address] | | | [facility] | Bl[address]. | [...] | | | | | validated by [employer] | | | | | | [employer] This | | | | | [...] by | | | | | | [employer] | | | | | | [employer]Borderline/[employer] | | | | | | RF results warrant | | | | | | redraw and retestingto | | | | | | confirm.Testing | | | | | | performed at [employer] | | | | | | [employer], [address] | | | | | | [facility] | | | | | | [address],[place], [place] | | | | | | [address]. | | | | + + + + + + + + | Specimen | + + | Blood | + + + + + + + | Performing | Address | City/State/Zipcode | Phone Number | | Organization | | | | + + + + + | REFERENCE LAB | [address] [place] [address] | [place] [address] | [phone] | | [facility] | Blvd. | | | | LABORATORY | | | | + + + + + | REFERENCE LAB | [address] [place] [address] | [place] [address] | | | [facility] | Blvd. | [...] | LAB | | | Total | TCL;[address] [facility] | | [facility] | | | | Blvd;[place] [address] | | LABORATORY | | + + + + + + + + | Specimen | + + | Blood | + + + + + + + | Performing | Address | City/State/Zipcode | Phone Number | | Organization | | | | + + + + + | REFERENCE LAB | [address] [facility] | [place] [address] | [phone] | | [facility] | Blvd. | | | | LABORATORY | | | | + + + + + | REFERENCE LAB | [address] [place] [address] | [place] [address] | | | [facility] | Blvd. | [...] | [facility] | | | | Blvd;[place] [address] | | LABORATORY | | + + + + + + + + | Specimen | + + | Blood | + + + + + + + | Performing | Address | City/State/Zipcode | Phone Number | | Organization | | | | + + + + + | REFERENCE LAB | [address] [place] [address] | [place] [address] | [phone] | | [facility] | Blvd. | | | | LABORATORY | | | | + + + + + | REFERENCE LAB | [address] [facility] | [place] [address] | | | [facility] | Blvd. | [...] | | | | | performed at [facility];[address] | | | | | | [address] | | | | | | [address];[place] [address] | | | | | | | | | | + + + + + + + + | Specimen | + + | Blood | + + + + + + + | Performing | Address | City/State/Zipcode | Phone Number | | Organization | | | | + + + + + | REFERENCE LAB | [address] [facility] | [place] [address] | [phone] | | [facility] | Blvd. | | | | LABORATORY | | | | + + + + + | REFERENCE LAB | [address] [facility] | [place] [address] | | | [facility] | Blvd. | [...] [place] | | | | | | [address] | | | | + + + + + + + + | Specimen | + + | Blood | + + + + + + + | Performing | Address | City/State/Zipcode | Phone Number | | Organization | | | | + + + + + | REFERENCE LAB | [address] [place] [address] | [place] [address] | [phone] | | [facility] | Blvd. | | | | LABORATORY | | | | + + + + + | REFERENCE LAB | [address] [place] [address] | [place] [address] | | | [facility] | Blvd. | [...] | | [facility] | | | | Blvd;[place] [address] | | LABORATORY | | + + + + + + + + | Specimen | + + | Blood | + + + + + + + | Performing | Address | City/State/Zipcode | Phone Number | | Organization | | | | + + + + + | REFERENCE LAB | [address] [place] [address] | [place] [address] | [phone] | | [facility] | Blvd. | | | | LABORATORY | | | | + + + + + | REFERENCE LAB | [address] [place] [address] | [place] [address] | | | [facility] | Blvd. | [...] | | | ANTIBODY | performed at [facility], [address] | | LAB | | | | [facility] | | [facility] | | | | [place] [address] | | LABORATORY | | + + + + + + + + | Specimen | + + | Blood | + + + + + + + | Performing | Address | City/State/Zipcode | Phone Number | | Organization | | | | + + + + + | REFERENCE LAB | [address] [facility] | [place] [address] | [phone] | | [facility] | Blvd. | | | | LABORATORY | | | | + + + + + | REFERENCE LAB | [address] [facility] | [place] [address] | | | [facility] | Blvd. | [...] | | | | | performed at [facility], [address] | | | | | | [facility] | | | | | | [place] [address] | | | | + + + + + + + + | Specimen | + + | Blood | + + + + + + + | Performing | Address | City/State/Zipcode | Phone Number | | Organization | | | | + + + + + | REFERENCE LAB | [address] [place], [place] [address] | [place] [address] | [phone] | | [facility] | Blvd. | | | | LABORATORY | | | | + + + + + | REFERENCE LAB | [address] [facility] | [place] [address] | | | [facility] | Blvd. | [...] at | | | | | | [facility], [address] | | | | | | [facility] [place] | | | | | | [address] | | | | + + + + + + + + | Specimen | + + | Blood | + + + + + + + | Performing | Address | City/State/Zipcode | Phone Number | | Organization | | | | + + + + + | REFERENCE LAB | [address] [facility] | [place] [address] | [phone] | | [facility] | Blvd. | | | | LABORATORY | | | | + + + + + | REFERENCE LAB | [address] [facility] | [place] [address] | | | [facility] | Blvd. | [...] [facility] | | | | Blvd;[place] [address] | | LABORATORY | | + + + + + + + + | Specimen | + + | Blood | + + + + + + + | Performing | Address | City/State/Zipcode | Phone Number | | Organization | | | | + + + + + | REFERENCE LAB | [address] [place] [address] | [place] [address] | [phone] | | [facility] | Blvd. | | | | LABORATORY | | | | + + + + + | REFERENCE LAB | [address] [place] [address] | [place] [address] | | | [facility] | Blvd. | [...] REFERENCE | | | | performed at [facility];[address] | | LAB | | | | [place] | | [facility] | | | | Blvd;[place] [address] | | LABORATORY | | + + + + + + + + | Specimen | + + | Blood | + + + + + + + | Performing | Address | City/State/Zipcode | Phone Number | | Organization | | | | + + + + + | REFERENCE LAB | [address] [place] [address] | [place] [address] | [phone] | | [facility] | Blvd. | | | | LABORATORY | | | | + + + + + | REFERENCE LAB | [address] [place] [address] | [place] [address] | | | [facility] | Blvd. | [...] | | | | | performed at [facility];[address] | | | | | | [facility] | | | | | | Blvd;[place] [address] | | | | | | | | | | + + + + + + + + | Specimen | + + | Blood | + + + + + + + | Performing | Address | City/State/Zipcode | Phone Number | | Organization | | | | + + + + + | REFERENCE LAB | [address] [facility] | [place] [address] | [phone] | | [facility] | Blvd. | | | | LABORATORY | | | | + + + + + | REFERENCE LAB | [address] [facility] | [place] [address] | | | [facility] | Blvd. | [...] | | | Absolute | performed at [facility];[address] | [address] | LAB | | | | [place] | | [facility] | | | | Blvd;[place] [address] | | LABORATORY | | + + + + + + + + | Specimen | + + | Blood | + + + + + + + | Performing | Address | City/State/Zipcode | Phone Number | | Organization | | | | + + + + + | REFERENCE LAB | [address] [facility] | [place] [address] | [phone] | | [facility] | Blvd. | | | | LABORATORY | | | | + + + + + | REFERENCE LAB | [address] | [place] [address] | | | [facility] | Blvd. | | | | LABORATORY [...]
--- OUTSIDE RECORDS SUMMARY | ~2019-10-07 | XMS | Encounter Summary ---
Demographics + + + | Address | [address] | | | [place] [address] | + + + | Home Phone [...] Team Providers + +------+ + | Care Automotive Parts Salesperson Name | Role | Phone | + [...] + + | 10/06/ | Documentati | [facility] | Marcial, | Results (10/01/19) | | 2019 | on | NEPHROLOGY [place] | [facility] | | | | | [address] | | | | | [address] | | | | | | [place], [place] | | | | | | [address] | | | | | | [phone] | | | +--------+ + + + [...] 2018 | Visit | | KITTY Hansen [address] | | | | | | [facility] | | | | | | [place] [address] | | | | | | [phone] | | | | | | | | +--------+---------+ + + + | 11/10/ | Office | Nephrology | Cristian Wallace MD | | | 2019 | Visit | | [address] [facility] | | | | | | [address] [place] | | | | | | [address] | | | | | | | [...] 1.001 - 1.030 | | | | [place] | | | | | + + [...]
[~2019-10-07 03:59] MED LIST changes: +PREDNISONE20 MG PO
--- OUTSIDE RECORDS SUMMARY | 2019-10-07 04:02 | XMS ---
PreManage Notification: AMOR [place] Security Adjuster Electrical Contacts Events No recent Security Events currently on file CRITERIA MET - [facility] CARE PROVIDERS ALANNA SHEPPARD Nurse Practitioner: Family Current PHONE: Unknown JOHN HUTCHINSON Internal Medicine Current PHONE: Unknown [facility] Care Current ADMINISTRATION PHONE: Unknown OUTSIDE PCP Primary Care Current PHONE: Unknown Cmofort has no Care Guidelines for this patient. Care History Medical/Surgical 05/05/2019 [facility] - Patient is currently established with [facility]. If patient is seen in the ED during business hours. Please contact CHWs at [facility]. Care Recommendation: This patient has had 5 or more Emergency Department visits in the last 12 months.\T\nbsp; Patient requires education on the scope and purpose of the ED as an acute care provider not a Primary Care Provider and should not be utilized for chronic conditions.\T\nbsp; These are guidelines and the provider should exercise clinical judgment when providing care. E.D. VISIT COUNT (12 MO.) 3 [facility]. TOTAL 3 NOTE: Visits indicate total known visits. ED/UCC VISIT TRACKING (12 MO.) 10/07/2019 03:59 [facility] [place] TYPE: Emergency COMPLAINT: - BODY PAIN 05/01/2019 11:31 [facility] [place] TYPE: Emergency COMPLAINT: - BODY ACHES/BODY PAIN DIAGNOSES: - Pain in right hand - Unspecified osteoarthritis, unspecified site - Allergy status to sulfonamides status - Allergy status to penicillin - Systemic lupus erythematosus, unspecified - Allergy status to narcotic agent status 04/10/2019 08:10 [facility] [place] TYPE: Emergency COMPLAINT: - BODY PAIN/NO INJURY DIAGNOSES: - Allergy status to narcotic agent status - Rheumatoid arthritis, unspecified - Allergy status to sulfonamides status - Allergy status to penicillin - Systemic lupus erythematosus, unspecified - Pain, unspecified - Pain in unspecified joint INPATIENT VISIT TRACKING (12 MO.) No inpatient visits to display in this time frame [id number]
[2019-10-07] MEDS ORDERED: LOSARTAN POTASS25 MG (04:09)
[2019-10-07] MEDS ORDERED: MYCOPHENOLIC A360 MG PO ×2 (04:09)
[2019-10-07] MEDS ORDERED: PREDNISONE5 MG PO ×2 (04:09)
[2019-10-07] MEDS ORDERED: OXYCODONE HCL5 MG PO (14:07)
== END 2019-10-07 05:32 | disposition home or self-care (01) ==
LOC: ED 03:59
DX: M79.10 Myalgia, unspecified site (principal); M25.562 Pain in left knee; M25.561 Pain in right knee; M79.601 Pain in right arm; M79.602 Pain in left arm; M79.671 Pain in right foot; M79.672 Pain in left foot; Z88.0 Allergy status to penicillin; Z88.2 Allergy status to sulfonamides; Z88.5 Allergy status to narcotic agent; Z79.899 Other long term (current) drug therapy
CPT/HCPCS: 87502; 87880; 96372; 99283; J1885

== ENCOUNTER 2019-10-07 09:34 | Emergency (ER) | payer BC, OTHER ==
[~2019-10-07] VITALS: Ht 165.1 cm; Wt 92.5 kg
--- OUTSIDE RECORDS SUMMARY | ~2019-10-07 | XMS | Encounter Summary ---
Demographics + + + | Address | [address] | | | [place] [address] | + + + | Home Phone | | + + + | Preferred Language | Unknown | + + + | Marital Status | | + + + | Orthodox Affiliation | Unknown | + + + | Race | Unknown | + + + | Ethnic Group | Unknown | + + + Author + + + | Author | [facility] | | | and [place] | + + + | Organization | [facility] | | | and [place] | + + + | Address | Unknown | + + + | Phone | Unavailable | + + + Support + + +---------+ + | Name | Relationship | Address | Phone | + + +---------+ + | Cheryl Berman | ECON | Unknown | | + + +---------+ + Care Team Providers + +------+ + | Care Circus Train Supervisor Name | Role | Phone | + +------+ + | Eric Bhatti DO | PCP | | + +------+ + Encounter Details +--------+ + + + + | Date | Type | Department | Care Team | Description | +--------+ + + + + | 07/01/ | Orders Only | [facility] | Cristian Wallace MD | Lupus nephritis | | 2019 | | NEPHROLOGY [place] [facility] | [address] [place] | (HCC) (Primary Dx); | | | | [address] [place] | [address] [place], [place] | Persistent | | | | [address] [place], [place] | [address] | proteinuria | | | | [address] | | | | | | [phone] | | | +--------+ + + + + Social History + +-------+ +--------+------+ | Tobacco Use | Types | Packs/Day | Years | Date | | | | | Used | | + +-------+ +--------+------+ | Never Smoker | | | | | + +-------+ +--------+------+ + + + | Sex Assigned at | Date Recorded | | | | + + + | Not on file | | + + + + + + + | Job Start Date | Occupation | Industry | + + + + | Not on file | Not on file | Not on file | + + + + + + + + | Travel History | Travel Start | Travel End | + + + + + + | No recent travel history available. | + + documented as of this encounter Plan of Treatment +--------+---------+ + + + | Date | Type | Specialty | Care Team | Description | +--------+---------+ + + + | 10/20/ | Office | Rheumatology | Genevieve Hudson | | | 2018 | Visit | | KITTY Hansen [address] | | | | | | [address] | | | | | | [place] [address] | | | | | | [phone] | | | | | | | | +--------+---------+ + + + | 11/10/ | Office | Nephrology | Cristian Wallace MD | | | 2019 | Visit | | [address] [facility] [address] | | | | | | [address] [place] | | | | | | [address] | | | | | | | | +--------+---------+ + + + + +------+--------+ + + | Name | Type | Priori | Associated Diagnoses | Order Schedule | | | | ty | | | + +------+--------+ + + | CBC with | Lab | Routin | Lupus nephritis | Expected: | | Differential | | e | (HCC) Persistent | 07/07/2019, Expires: | | | | | proteinuria | 07/01/2020 | + +------+--------+ + + | Basic Metabolic | Lab | Routin | Lupus nephritis | Expected: | | Panel | | e | (HCC) Persistent | 10/01/2019, Expires: | | | | | proteinuria | 07/01/2020 | + +------+--------+ + + | CBC with | Lab | Routin | Lupus nephritis | Expected: | | Differential | | e | (HCC) Persistent | 10/01/2019, Expires: | | | | | proteinuria | 07/01/2020 | + +------+--------+ + + | Urinalysis With | Lab | Routin | Lupus nephritis | Expected: | | Microscopic | | e | (HCC) Persistent | 10/01/2019, Expires: | | | | | proteinuria | 07/01/2020 | + +------+--------+ + + | Protein/Creatinine | Lab | Routin | Lupus nephritis | Expected: | | Ratio, Urine | | e | (HCC) Persistent | 10/01/2019, Expires: | | | | | proteinuria | 07/01/2020 | + +------+--------+ + + documented as of this encounter Visit Diagnoses + + | Diagnosis | + + | Lupus nephritis (HCC) - Primary Systemic lupus erythematosus | + + | Persistent proteinuria Proteinuria | + + documented in this encounter"
--- OUTSIDE RECORDS SUMMARY | ~2019-10-07 | XMS | Encounter Summary ---
Demographics + + + | Address | [address] | | | [place] [address] | + + + | Home Phone | | + + + | Preferred Language | Unknown | + + + | Marital Status | | + + + | Gnosticism Affiliation | Unknown | + + + | Race | Unknown | + + + | Ethnic Group | Unknown | + + + Author + + + | Author | [facility] | | | and [place] | + + + | Organization | [facility] | | | [...] Team Providers + +------+ + | Care Guard Rail Installer Name | Role | Phone | + +------+ + | Eric Bhatti DO | PCP | | + +------+ + Reason for Visit +--------+ + | Reason | Comments | +--------+ + | Other | | +--------+ + Encounter Details +--------+ + + + + | Date | Type | Department | Care Team | Description | +--------+ + + + + | 06/25/ | Telephone | [facility] | Cristian Wallace MD | Other | | 2019 | | NEPHROLOGY [place] | [address] [place] | | | | | [address] [place] | [address] [place], [place] | | | | | [address] [place], [place] | [address] | | | | | [address] | | | | | | [phone] | | | +--------+ + + + [...] [address] | | | | | | [facility] | | | | | | [place] [address] | | | | | | [phone] | | | | | | | | +--------+---------+ + + + | 11/10/ | Office | Nephrology | Cristian Wallace MD | | | 2019 | Visit | | [address] | | | | | | [facility] | | | | | | [address] | | | | | | | | +--------+---------+ + + + documented as of this encounter Visit Diagnoses Not on filedocumented in this encounter"
--- OUTSIDE RECORDS SUMMARY | ~2019-10-07 | XMS | Encounter Summary ---
Demographics + + + | Address | [address] | | | [place] [address] | + + + | Home Phone | | + + + | Preferred Language | Unknown | + + + | Marital Status | | + + + | Moravian Affiliation | Unknown | + + + | Race | Unknown | + + + | Ethnic Group | Unknown | + + + Author + + + | Author | [facility] | | | and [place] | + + + | Organization | [facility] | | | [...] Team Providers + +------+ + | Care Quantitative Associate Name | Role | Phone | + +------+ + | Eric Bhatti DO | PCP | | + +------+ + Reason for Visit + + + | Reason | Comments | + + + | Rheumatology | | | Appointment | | + + + Evaluate & Treat (Routine) + +--------+ + + + + | Status | Reason | Specialty | Diagnoses / | Referred By | Referred To | | | | | Procedures | Contact | Contact | + +--------+ + + + + | Authorized | | | Diagnoses | Karfredy, | Rafat | | | | | Glomerular | DO Eric | Rheumatology | | | | | disease in | [address] | [address] | | | | | systemic | [address] | [address] | | | | | lupus | [address] | [place] | | | | | erythematosu | [place], | [address] | | | | | s (HCC) | [place] | Phone: | | | | | Glomerular | [address] | [phone] | | | | | disease in | Phone: | Fax: | | | | | systemic | [phone] | [phone] | | | | | lupus | Fax: | | | | | | erythematosu | [phone] | | | | | | s (HCC) | | | + +--------+ + + + + Encounter Details +--------+---------+ + + + | Date | Type | Department | Care Team | Description | +--------+---------+ + + + | 08/25/ | Office | [facility] | Genevieve Hudson | SLE | | 2019 | Visit | RHEUMATOLOGY [address] | [address] | glomerulonephritis | | | | [address] | [address] | syndrome (HCC) | | | | [place], [place] | [place] [address] | (Primary Dx); High | | | | [address] | [phone] | risk medication use; | | | | [phone] | | General counselling | | | | | | and advice on | | | | | | contraception; | | | | | | History of vitamin D | | | | | | deficiency; | | | | | | Systemic lupus | | | | | | erythematosus, | | | | | | unspecified SLE | | | | | | type, unspecified | | | | | | organ involvement | | | | | | status (HCC) | +--------+---------+ + + + Social History [...] + + documented as of this encounter Last Filed Vital Signs + + + + + | Vital Sign | Reading | Time Taken | Comments | + + + + + | Blood Pressure | 112/64 | 08/25/2019 2:03 PM | | | | | PDT | | + + + + + | Pulse | 78 | 08/25/2019 2:03 PM | | | | | PDT | | + + + + + | Temperature | 36.7 C (98 F) | 08/25/2019 2:03 PM | | | | | PDT | | + + + + + | Respiratory Rate | - | - | | + + + + + | Oxygen Saturation | 99% | 08/25/2019 2:03 PM | | | | | PDT | | + + + + + | Inhaled Oxygen | - | - | | | Concentration | | | | + + + + + | Weight | 87 kg (191 lb 12.8 | 08/25/2019 2:03 PM | | | | oz) | PDT | | + + + + + | Height | 165.1 cm (5' 5") | 08/25/2019 2:03 PM | | | | | PDT | | + + + + + | Body Mass Index | 31.92 | 08/25/2019 2:03 PM | | | | | PDT | | + + + + + documented in this encounter Patient Instructions Patient Instructions Marco Blair, Drivers License Examiner - 08/25/2019 2:10 PM PDTWe hop e that you have experienced exceptional care today and that you found our service to be cour teous and helpful. If you have any questions or need medication refills you can send us a message/request u [employer] or call our office at [phone]. To reach Zainab RIOS use ext [phone] To reach Marco RIOS use ext [phone] If you are unable to reach a nurse during clinic hours, please leave a detailed message. We check our messages often and return calls in a timely manner during clinic hours. Orders for labs or imaging: Please remember that Genevieve will only call you if somethi ng of concern needs to be addressed, otherwise all result will be discussed at your next off ice visit. You can also look at your results on [employer]. If you are experiencing an emergency, please call 911 documented in this encounter Progress Notes Genevieve Hudson PA-C - 08/25/2019 2:10 PM PDTFormatting of this note might be diff erent from the original. Subjective: Patient ID: Brook Berman is a 23 y.o. female. Rheumatological History Initially seen by Dr. Cardona in July 2019 "Diagnosed with Lupus and RA in 2011 in [place] then transferred to [facility] . PT reports in middle school both of her legs were swollen with darkening of her urine. Was seen in the ER with kidney failure. Was in renal failure with kidney biopsy done as well. N o recent skin rashes. She has been following up with Nephrology and recently her myfortic dose was decreased. Feels like her lupus is stable with current regimen of HCQ and Myfortic however she ran out of her myfortic earlier this month. C/o fatigue on and off. No pregnancies. 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 Pulse IV So elodia-Medrol as well as IV Cytoxan for a total of 7 doseswere given. She was maintained on Ce llCept and Plaquenil as well as oral prednisone from January 2011 to December 2011. In February 04, her labs showed increased disease activity, thought to be secondary noncompliance to me dications. Hence CellCept dose was increased to 1500 mg twice daily and in March 2013, the pat iestacie received repeat IV pulse of Solu-Medrol for disease control. In September 2013, when she established care at [facility], both CellCept and HCQ were restarted but at follow up almost a ye ar later she has stopped all medications on October 2013. On 07/30/14, her labs showed worse lee ann disease activity with increased dsDNA and ESR and hypocomplementemia, so Myfortic was r estarted (she was not taking the MMF) and she was put on prednisone 20 mg daily. 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 Myfortic was increased to 720 mg BID in Aug to optimize disease control (not for relapse). Myfortic dose decreased to 720 mg bid due to abdominal discomfort" Serology: Positive RF, Positive MARCO titer (1:320- Homogenous) Positive dsDNA, Cisse, Chroma tin, Elevated acute phase reactants, Low compliments and Negative anti-CCP Pertinent Imaging:none Tried and failed oral DMARDs include: N/A Tried and failed biologic DMARDs include: IV Cytoxan (did well), Rituxan (did well) Tried and failed NSAIDs:N/A Past medical history does include: Reactive depression, vitamin D deficiency Sheyla RIOS am personally taking down the notes in the presence of Genevieve Hudson PA-C. History of Present Illness Here for:Lupus Nephritis Here for: Follow up Last seen:07/21/2019 Dr. Cardona Any changes in overall health since last visit: no Current rheumatological medications: Plaquenil 400 mg daily, Prednisone taper ( started ) Current rheumatological complaint:Denies mouth sores, rashes, abnormal bleeding or bruising ; also denies chest pain and SOB. Patient started on Prednisone taper last week due to flare. She states she has had 2 flares in the past 9 months and this is unusual for her. Patient reports that the flares consiste d of hand elbow and knee pain with swelling. Location: left elbow Morning stiffness lasting no morning stiffness Quality: ache Severity: mild Duration: chronic Timing:intermittent Aggravated by:N/A Relieved by:N/A Denies: infection, fever and abdominal pain Patient's medications, allergies, past medical, surgical, social and family histories were obtained and reviewed as appropriate. Review of Systems Constitutional: Negative for fever. HENT: Negative for mouth sores and sore throat. Eyes: Negative for pain, discharge and redness. Respiratory: Negative for shortness of breath and wheezing. Cardiovascular: Negative for chest pain. Gastrointestinal: Negative for abdominal pain, constipation, diarrhea, nausea and vomiting. Genitourinary: Negative for dysuria. Musculoskeletal: Positive for arthralgias (left elbow). Negative for joint swelling. Skin: Negative for rash and wound. Neurological: Negative for dizziness and headaches. IGenevieve PA-C, reviewed the above ROS. Objective: BP 112/64 | Pulse 78 | Temp 36.7 C (98 F) (Oral) | Ht 1.651 m (5' 5") | Wt 87 kg (1 91 lb 12.8 oz) | SpO2 99% | BMI 31.92 kg/m Physical Exam Constitutional: She appears well-developed and well-nourished. HENT: Nose: No nasal deformity. Mouth/Throat: Uvula is midline and mucous membranes are normal. No oropharyngeal exudate. Eyes: Conjunctivae and EOM are normal. No scleral icterus. Cardiovascular: Normal rate and regular rhythm. Pulmonary/Chest: Effort normal and breath sounds normal. Musculoskeletal: Sternoclavicular- Negative Palms- negative MCPs- negative PIPs- negative CMC- negative DIPS- negative Wrists- negative Fists- Able to make complete fists Elbows-negative Shoulders-negative Knees- right synovitis Ankles- negative Feet/MTPs- negative Lymphadenopathy: She has no cervical adenopathy. Neurological: She is alert. Skin: Skin is warm and dry. No rash noted. Lab Data: Lab Results Component Value Date WBC 5.24 07/21/2019 HGB 13.2 07/21/2019 HCT 39.4 07/21/2019 MCV 92.7 07/21/2019 LABPLAT 253 06/26/2019 PLT 262 07/21/2019 Lab Results Component Value Date NA 141 07/21/2019 K 3.9 07/21/2019 CL 108 07/21/2019 CALCIUM 8.7 07/21/2019 CO2 30 07/21/2019 ALT 45 07/21/2019 AST 32 07/21/2019 EGFR >60 07/21/2019 Lab Results Component Value Date CRP <0.3 07/21/2019 No components found for: SEDRATE Imaging: Laboratory results were reviewed in [facility] as well as chart notes and imaging from other prov ider(s) since their last rheumatology clinic visit, Please see the EMR for further detail. 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 Treated with 8 months IV cytoxan and prednisone. Maintena nce was plaquenil, CellCept and then Myfortic. Has also responded to a course of Rituxan. Baseline creatinine- 0.6-0.7 (as of 11/2016) Systemic lupus erythematosus (HCC) ACR criteria + (Patient meets 04/15) Criterion Definition NO Malar rash Fixed erythema, flat or raised, over the malar eminences, tending to spare th e nasolabial folds NO Photosensitivity Skin rash as a result of unusual reaction to sunlight, by patient histo ry or clinician observation NO Discoid rash Erythematosus raised patches with adherent keratotic scaling and follicular plugging; atrophic scarring may occur in older lesions NO Oral ulcers Oral or nasopharyngeal ulceration, usually painless, observed by a clinician YES Arthritis Nonerosive arthritis involving two or more peripheral joints, characterized b y tenderness, swelling, or effusion NO Serositis Pleuritis Convincing history of pleuritic pain or rubbing heard by a clini melvi or evidence of pleural effusion OR Pericarditis Documented by ECG, rub, or evidence of pericardial effusion YES Renal disorder Persistent proteinuria greater than 500 mg/24 hours or greater than 3+ i f quantitation not performed OR Cellular casts May be red cell, hemoglobin, granular, tu bular, or mixed YES Neurologic disorder Seizures OR psychosis In the absence of offending drugs or know n metabolic derangements (uremia, ketoacidosis, or electrolyte imbalance) YES Hematologic disorder Hemolytic anemia With reticulocytosis OR Leukopenia Less than 4000/mm3 total on two or more occasions OR Lymphopenia Less than 1500/mm3 on two or more occasions OR Thrombocytopenia Less than 100,000/mm3 (in the absence of offending drugs) YES MARCO An abnormal titer of MARCO by immunofluorescence or an equivalent assay at any point in time and in the absence of drugs known to be associated with "drug-induced lupus" syndrom e YES Immunologic disorders Anti-DNA Antibody to [place] DNA in abnormal titer OR Anti-Sm Presence of antibody to Sm nuclear antigen OR Positive finding of antiphospholipid antibody based on an abnormal serum level of IgG or Ig M anticardiolipin antibodies, on a positive test result for lupus anticoagulant using a shirley dard method, or on a false-positive serologic test for syphilis known to be positive for at least six months and confirmed by Treponema pallidum immobilization or fluorescent treponema l antibody absorption test SLICC criteria + (08/21) NO Acute cutaneous lupus Lupus malar rash (do not count if malar discoid); bullous lupus; t oxic epidermal necrolysis variant of SLE; maculopapular lupus rash; photosensitive lupus cm h (in the absence of dermatomyositis); OR subacute cutaneous lupus (nonindurated psoriaform and/or annular polycyclic lesions that resolve without scarring, although occasionally with postinflammatory dyspigmentation or telangiectasias) NO Chronic cutaneous lupus Classic discoid rash; localized (above the neck); generalized (a sobia and below the neck); hypertrophic (verrucous) lupus; lupus panniculitis (profundus); mu cosal lupus; lupus erythematosus tumidus; chilblains lupus; OR discoid lupus/lichen planus o verlap NO Nonscarring alopecia Diffuse thinning or hair fragility with visible broken hairs (in th e absence of other causes, such as alopecia areata, drugs, iron deficiency, and androgenic a lopecia) NO Oral or nasal ulcers Palate, buccal, tongue, OR nasal ulcers (in the absence of other ca uses, such as vasculitis, Behet's disease, infection [herpesvirus], inflammatory bowel dis ease, reactive arthritis, and acidic foods) NO Joint disease Synovitis involving two or more joints, characterized by swelling or effus ion OR Tenderness in two or more joints and at least 30 minutes of morning stiffness YES Serositis Typical pleurisy for more than one day, pleural effusions, or pleural rub, OR Typical pericardial pain (pain with recumbency improved by sitting forward) for more than o ne day, pericardial effusion, pericardial rub, or pericarditis by electrocardiography in the absence of other causes, such as infection, uremia, and Susie's syndrome YES Renal Urine vuggmxy-wy-qezgdwoydv ratio (or 24-hour urine protein) representing 500 mg protein/24 hours, OR Red blood cell casts YES Neurologic Seizures; psychosis; mononeuritis multiplex (in the absence of other known c auses, such as primary vasculitis); myelitis; peripheral or cranial neuropathy (in the absen ce of other known causes, such as primary vasculitis, infection, and diabetes mellitus); OR acute confusional state (in the absence of other causes, including toxic/metabolic, uremia, drugs) YES Hemolytic anemia Hemolytic anemia YES Leukopenia or lymphopenia Leukopenia (<4000/mm3 at least once) (in the absence of other known causes, such as Felty's syndrome, drugs, and portal hypertension), OR Lymphopenia (<1 000/mm3 at least once) (in the absence of other known causes, such as glucocorticoids, drugs , and infection) NO Thrombocytopenia Thrombocytopenia (<100,000/mm3) at least once in the absence of other k nown causes, such as drugs, portal hypertension, and thrombotic thrombocytopenic purpura YES Immunologic criteria YES MARCO MARCO level above laboratory reference range YES Anti-dsDNA Anti-dsDNA antibody level above laboratory reference range (or >twofold the reference range if tested by [facility]) NO Anti-Sm Presence of antibody to Sm nuclear antigen NO Antiphospholipid Antiphospholipid antibody positivity as determined by any of the follow ing: Positive test result for lupus anticoagulant; false-positive test result for rapid plas ma reagin; medium- or high-titer anticardiolipin antibody level (IgA, IgG, or IgM); or posit zakia test result for anti-beta 2-glycoprotein I (IgA, IgG, or IgM) YES Low complement Low C3; low C4; OR low CH50 YES Direct Bin' test Direct Bin' test in the absence of hemolytic anemia Diagnosed in her teens. Past manifestations have included class 4 lupus nephritis, cerebrit is, meningoencephalitis, leukopenia, thrombocytopenia. Past labs have shown positive dsDNA, MARCO, low complements, anti neuronal antibodies. Past treatments have included cytoxan, predn isone, plaquenil, MMF, Myfortic, rituximab. Recent joint flares. If patient flares again we may need to consider adjusting her treatmen t regimen. No change in treatment plan. Patient understands that treatment is nursing home and if patient fails to continue regimen , the disease has propensity to flare. Other High risk medication use Basic labs Monitored (CBC,CMP and ESR): Ordered Labs routinely ordered due to high risk medication use- Monitored for cytopenias, liver tox icity, renal dysfunction and disease activity. Hepatitis panel 07/2019 This will be checked every 5 years based on patients risk or at time of biologic drug menon e. Chest x-ray update Eye exam update The major posible side effect of Plaquenil is retinal toxicity, which is very rare at the d ose we use (which is less than 5 mg/kg per day). This side effect happens 1 in 5000 usually after 5 years of use. To detect this possibility they will need to be seen by an ophthalmolo gist at least once a year. Relevant Orders XR Chest 2 Vws History of vitamin D deficiency Taking OTC vit D. General counselling and advice on contraception Risks and benefits of a treatment plan were explained to patient. Patient will follow up with their primary care physician in regards to non-rheumatological symptoms listed under review of systems. Patient was advised to contact our office if there are any change in their symptoms. This is a patient with multiple medical problems that require considerable time and reflect ion in order to properly evaluate and manage. Avoidance of adverse drug interactions and opt imization of treatment/therapy is the primary goal. Complex analysis and decision making was involved in today's visit. I,Genevieve Hudson PA-C, personally performed the services described in this documentation, with the scribe in my presence, and it is both accurate and complete. Dictation software [employer]/dictation services used, which may contain error for similar soun ding words even after review. Please do not hesitate to contact me for any clarification. Procedures: Procedures do cumented in this encounter Plan of Treatment +--------+---------+ + + + | Date | Type | Specialty | Care Team | Description | +--------+---------+ + + + | 10/20/ | Office | Rheumatology | Genevieve Hudson | | | 2018 | Visit | | [address] | | | | | | [facility] | | | | | | [place] [address] | | | | | | [phone] | | | | | | | | +--------+---------+ + + + | 11/10/ | Office | Nephrology | Cristian Wallace MD | | | 2019 | Visit | | [address] [facility] | | | | | | [address] [place], [place] | | | | | | [address] | | | | | | | | +--------+---------+ + + + + +---------+--------+ + + | Name | Type | Priori | Associated Diagnoses | Order Schedule | | | | ty | | | + +---------+--------+ + + | XR Chest 2 Vws | Imaging | Routin | High risk | Expected: | | | | e | medication use | 08/25/2019, Expires: | | | | | | 08/25/2020 | + +---------+--------+ + + documented as of this encounter Visit Diagnoses + + | Diagnosis | + + | SLE glomerulonephritis syndrome (HCC) - Primary Systemic lupus erythematosus | + + | High risk medication use Encounter for long-term (current) use of other medications | + + | General counselling and advice on contraception Other general counseling and advice | | for contraceptive management | + + | History of vitamin D deficiency Personal history of nutritional deficiency | + + | Systemic lupus erythematosus, unspecified SLE type, unspecified organ involvement | | status (HCC) | + + documented in this encounter
--- OUTSIDE RECORDS SUMMARY | ~2019-10-07 | XMS | Encounter Summary ---
Demographics + + + | Address | [address] | | | [place] [address] | + + + | Home Phone | | + + + | Preferred Language | Unknown | + + + | Marital Status | | + + + | Hoahaoism Affiliation | Unknown | + + + | Race | Unknown | + + + | Ethnic Group | Unknown | + + + Author + + + | Author | [facility] | | | and [place] | + + + | Organization | [facility] | | | [...] Team Providers + +------+ + | Care Parking Manager Name | Role | Phone | [...] | +--------+ + + + + | 09/16/ | Telephone | [facility] | Tracie Brizuela, | Pain | | 2019 | | RHEUMATOLOGY [address] | [address] | | | | | [address] | | | | | | [place] | | | | | | [address] | | | | | | [phone] | | | +--------+ + + + [...] W | | | | | | [facility] | | | | | | [place] [address] | | | | | | [phone] | | | | | | | | +--------+---------+ + + + | 11/10/ | Office | Nephrology | Cristian Wallace MD | | | 2019 | Visit | | [address] [facility] | | | | | | [address] [place] | | | | | | [address] | | | | | | | | +--------+---------+ + + + documented as of this encounter Visit Diagnoses Not on filedocumented in this encounter"
--- OUTSIDE RECORDS SUMMARY | ~2019-10-07 | XMS | Encounter Summary ---
Demographics + + + | Address | [address] | | | [place] [address] | + + + | Home Phone | | + + + | Preferred Language | Unknown | + + + | Marital Status | | + + + | Tenriism Affiliation | Unknown | + + + | Race | Unknown | + + + | Ethnic Group | Unknown | + + + Author + + + | Author | [facility] | | | and [place] | + + + | Organization | [facility] | | | [...] Team Providers + +------+ + | Care Editor Continuity And Script Name | Role | Phone | + [...] + + | 08/20/ | Telephone | [facility] | Tracie Brizuela, | Pain | | 2019 | | R[address]UM[address]OLOGY [address] | [address] | | | | | [address] | | | | | | [place] | | | | | | [address] | | | | | | [phone] | | | +--------+ + + + [...] W | | | | | | [facility] | | | | | | [place] [address] | | | | | | [phone] | | | | | | | | +--------+---------+ + + + | 11/10/ | Office | Nephrology | Cristian Wallace MD | | | 2019 | Visit | | [address] [facility] | | | | | | [address] [place] | | | | | | [address] | | | | | | | | +--------+---------+ + + + documented as of this encounter Visit Diagnoses Not on filedocumented in this encounter"
--- OUTSIDE RECORDS SUMMARY | ~2019-10-07 | XMS | Encounter Summary ---
Demographics + + + | Address | [address] | | | [place] [address] | + + + | Home Phone | | + + + | Preferred Language | Unknown | + + + | Marital Status | | + + + | Hoahaoism Affiliation | Unknown | + + + | Race | Unknown | + + + | Ethnic Group | Unknown | + + + Author + + + | Author | [facility] | | | and [place] | + + + | Organization | [facility] | | | [...] Team Providers + +------+ + | Care Banner Painter Name | Role | Phone | + [...] + + | 09/17/ | Telephone | [facility] | Felipa Stuart, | Pain | | 2019 | | RHEUMATOLOGY [address] | [address] | | | | | [address] | | | | | | [place] | | | | | | [address] | | | | | | [phone] | | | +--------+ + + + [...] W | | | | | | [facility] | | | | | | [place] [address] | | | | | | [phone] | | | | | | | | +--------+---------+ + + + | 11/10/ | Office | Nephrology | Cristian Wallace MD | | | 2019 | Visit | | [address] [facility] | | | | | | [address] [place] | | | | | | [address] | | | | | | | | +--------+---------+ + + + documented as of this encounter Visit Diagnoses Not on filedocumented in this encounter"
--- OUTSIDE RECORDS SUMMARY | ~2019-10-07 | XMS | Encounter Summary ---
Demographics + + + | Address | [address] | | | [place] [address] | + + + | Home Phone | | + + + | Preferred Language | Unknown | + + + | Marital Status | | + + + | Mandaen Affiliation | Unknown | + + + | Race | Unknown | + + + | Ethnic Group | Unknown | + + + Author + + + | Author | [facility] | | | and [place] | + + + | Organization | [facility] | | | [...] Team Providers + +------+ + | Care Regional Ehs Manager Name | Role | Phone | [...] + + | 06/25/ | Telephone | [facility] | Cristian Wallace MD | Other | | 2019 | | NEPHROLOGY [place] | [address] [place] | | | | | [address] [place] | [address] [place], [place] | | | | | [address] [place], [place] | [address] | | | | | [address] | | | | | | [phone] | | | +--------+ + + + [...] | | | | | | [facility] | | | | | | [place] [address] | | | | | | [phone] | | | | | | | | +--------+---------+ + + + | 11/10/ | Office | Nephrology | Cristian Wallace MD | | | 2019 | Visit | | [address] | | | | | | [facility] | | | | | | [address] | | | | | | | | +--------+---------+ + + + documented as of this encounter Visit Diagnoses Not on filedocumented in this encounter"
--- OUTSIDE RECORDS SUMMARY | ~2019-10-07 | XMS | Clinical Summary ---
Demographics + + + | Address | [address] | | | [place] [address] | + + + | Home Phone | | + + + | Preferred Language | Unknown | + + + | Marital Status | | + + + | Jehovah'S Witness Affiliation | Unknown | + + + | Race | Unknown | + + + | Ethnic Group | Unknown | + + + Author + + + | Author | [facility] | | | and [place] | + + + | Organization | [facility] | | [...] Team Providers + +------+ + | Care Facepiece Line Supervisor Name | Role | Phone | + +------+ + | Eric Bhatti DO | PCP | | + +------+ + Allergies + + + + + + | Active Allergy | Reactions | Severity | Noted | Comments | | | | | Date | | + + + + + + | Morphine | Nausea And Vomiting | | 06/14/20 | | | | | | 15 | | + + + + + + | Penicillins | Antoine, Rash | Low | 05/10/20 | | | | | | 15 | | + + + + + + | Sulfa Antibiotics | Hives, Rash | Low | 01/04/20 | | | | | | 19 | | + + + + + + Medications + + + +---------+------+------+-------+ | Medication | Sig | Dispensed | Refills | Star | End | Statu | | | | | | t | Date | s | | | | | | Date | | | + + + +---------+------+------+-------+ | magnesium, as | Take 250 mg by mouth | | 0 | | | Activ | | oxide, 250 MG tablet | 2 times daily. | | | | | e | + + + +---------+------+------+-------+ | cholecalciferol | Take 2,000 Units by | | 0 | | | Activ | | (VITAMIN D-3) 2000 | mouth Daily. | | | | | e | | units TABS | | | | | | | + + + +---------+------+------+-------+ | naproxen | Take 500 mg by mouth | | 0 | | | Activ | | (NAPROSYN) 500 mg | 2 times daily (with | | | | | e | | tablet | breakfast & | | | | | | | | dinner). | | | | | | + + + +---------+------+------+-------+ | Cyanocobalamin | Take by mouth. | | 0 | | | Activ | | (VITAMIN B 12 PO) | | | | | | e | + + + +---------+------+------+-------+ | mycophenolate | Take 1 tablet by | 60 | 2 | 09/1 | | Activ | | (MYFORTIC) [address] | mouth 2 times daily. | tablet | | 6/20 | | e | | tablet | | | | 19 | | | + + + +---------+------+------+-------+ | hydroxychloroquine | Take 1 tablet by | 60 | 2 | 09/2 | | Activ | | (PLAQUENIL) 200 mg | mouth 2 times daily. | tablet | | 5/20 | | e | | tablet | | | | 19 | | | + + + +---------+------+------+-------+ | predniSONE | Take 2 tabs x 7 | 21 | 0 | 11/1 | | Activ | | (DELTASONE) 5 mg | days, take 1 tab x 7 | tablet | | 3/20 | | e | | 21-tablet pack | days | | | 19 | | | + + + +---------+------+------+-------+ | losartan (COZAAR) | Take 1 tablet by | 30 | 11 | 12/0 | | Activ | | 25 mg tablet | mouth Daily. | tablet | | 2/20 | | e | | | | | | 19 | | | + + + +---------+------+------+-------+ | pyridoxine | Take by mouth. | | 0 | | 12/0 | Disco | | (PYRIDOXINE) 100 mg | | | | | 2/20 | ntinu | | tablet | | | | | 19 | ed | | | | | | | | (Elinor | | | | | | | | ent | | | | | | | | Not | | | | | | | | Takin | | | | | | | | g) | + + + +---------+------+------+-------+ | potassium 99 mg | Take 99 mg by mouth | | 0 | | 12/0 | Disco | | tablet | 2 times daily. | | | | 2/20 | ntinu | | | | | | | 19 | ed | | | | | | | | (Elinor | | | | | | | | ent | | | | | | | | Not | | | | | | | | Takin | | | | | | | | g) | + + + +---------+------+------+-------+ | predniSONE | Take two tablets | 21 | 0 | 09/3 | 11/1 | Disco | | (DELTASONE) 5 mg | daily for 7 days, | tablet | | 0/20 | 3/20 | ntinu | | tablet | then take one tablet | | | 19 | 19 | ed | | | daily for 7 days, | | | | | | | | then STOP. 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 Treated with 8 | | months IV cytoxan and prednisone. Maintenance was plaquenil, | | CellCept and then Myfortic. Baseline creatinine- 0.6-0.7 (as of | | 11/2016) Last Assessment & Plan: Class 4 diagnosed in her | | teens. Treated with 8 months IV cytoxan and prednisone. | | Maintenance was plaquenil, CellCept and then Myfortic. Has also | | responded to a course of Rituxan. Baseline creatinine- 0.6-0.7 | | (as of 11/2016) | + + + + + | Nephritis and nephropathy, not specified as acute or chronic, | 06/30/2019 | | with other specified pathological lesion in kidney, in diseases | | | classified elsewhere | | + + + + + | Overview: Class 4 diagnosed in her teens. Treated with 8 | | months IV cytoxan and prednisone. Maintenance was plaquenil, | | CellCept and then Myfortic. 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 | + + + + + | Vitamin D deficiency | 11/16/2016 | + + + | High risk medication use | 07/06/2016 | + + + + + | Last Assessment & Plan: Basic labs Monitored (CBC,CMP and | | ESR): OrderedLabs routinely ordered due to high risk medication | | use- Monitored for cytopenias, liver toxicity, renal dysfunction | | and disease activity. Hepatitis panel 07/2019This will be checked | | every 5 years based on patients risk or at time of biologic drug | | change. Chest x-ray updateEye exam update The major posible side | | effect of Plaquenil is retinal toxicity, which is very rare at | | the dose we use (which is less than 5 mg/kg per day). This side | | effect happens 1 in 5000 usually after 5 years of use. To detect | | this possibility they will need to be seen by an job recruiter | | at least once a year. | + + + + + | Systemic lupus erythematosus | 09/09/2013 | + + + + + | Overview: Formatting of this note might be different from the | | original.ACR criteria (4 of 11 criteria) Criterion Definition | | NO Malar rash Fixed erythema, flat or raised, over the malar | | eminences, tending to spare the nasolabial folds NO | | Photosensitivity Skin rash as a result of unusual reaction to | | sunlight, by patient history or clinician observation NO | | Discoid rash Erythematosus raised patches with adherent keratotic | | scaling and follicular plugging; atrophic scarring may occur in | | older lesions NO Oral ulcers Oral or nasopharyngeal ulceration, | | usually painless, observed by a clinician YES Arthritis | | Nonerosive arthritis involving two or more peripheral joints, | | characterized by tenderness, swelling, or effusion NO Serositis | | Pleuritis | | | | Convincing history of pleuritic pain or rubbing heard by a | | clinician or evidence of pleural effusion OR Pericarditis | | | | Documented by ECG, rub, or evidence of pericardial effusion | | YES Renal disorder Persistent proteinuria greater than 500 mg/24 | | hours or greater than 3+ if quantitation not performed OR | | Cellular casts | | | | May be red cell, hemoglobin, granular, tubular, or mixed YES | | Neurologic disorder Seizures OR psychosis | | | | In the absence of offending drugs or known metabolic | | derangements (uremia, ketoacidosis, or electrolyte imbalance) | | YES Hematologic disorder Hemolytic anemia | | | | With reticulocytosis ORLeukopenia | | | | Less than 4000/mm3 total on two or more occasions ORLymphopenia | | | | | | Less than 1500/mm3 on two or more occasions ORThrombocytopenia | | | | | | Less than 100,000/mm3 (in the absence of offending drugs) YES | | MARCO An abnormal titer of MARCO by immunofluorescence or an | | equivalent assay at any point in time and in the absence of drugs | | known to be associated with "drug-induced lupus" syndrome YES | | Immunologic disorders Anti-DNA | | | | Antibody to [place] DNA in abnormal titer ORAnti-Sm | | | | Presence of antibody to Sm nuclear antigen ORPositive finding of | | antiphospholipid antibody based on an abnormal serum level of | | IgG or IgM anticardiolipin antibodies, on a positive test result | | for lupus anticoagulant using a standard method, or on a | | false-positive serologic test for syphilis known to be positive | | for at least six months and confirmed by Treponema pallidum | | immobilization or fluorescent treponemal antibody absorption test | | SLICC criteria (4 of 17 criteria, including at least one | | clinical criterion and one immunologic criterion; OR | | biopsy-proven lupus nephritis) Criterion Definition Clinical | | criteria NO Acute cutaneous lupus Lupus malar rash (do not | | count if malar discoid); bullous lupus; toxic epidermal | | necrolysis variant of SLE; maculopapular lupus rash; | | photosensitive lupus rash (in the absence of dermatomyositis); OR | | subacute cutaneous lupus (nonindurated psoriaform and/or annular | | polycyclic lesions that resolve without scarring, although | | occasionally with postinflammatory dyspigmentation or | | telangiectasias) NO Chronic cutaneous lupus Classic discoid | | rash; localized (above the neck); generalized (above and below | | the neck); hypertrophic (verrucous) lupus; lupus panniculitis | | (profundus); mucosal lupus; lupus erythematosus tumidus; | | chilblains lupus; OR discoid lupus/lichen planus overlap NO | | Nonscarring alopecia Diffuse thinning or hair fragility with | | visible broken hairs (in the absence of other causes, such as | | alopecia areata, drugs, iron deficiency, and androgenic alopecia) | | NO Oral or nasal ulcers Palate, buccal, tongue, OR nasal | | ulcers (in the absence of other causes, such as vasculitis, | | Beh et's disease, infection [herpesvirus], inflammatory bowel | | disease, reactive arthritis, and acidic foods) NO Joint disease | | Synovitis involving two or more joints, characterized by | | swelling or effusion OR Tenderness in two or more joints and at | | least 30 minutes of morning stiffness YES Serositis Typical | | pleurisy for more than one day, pleural effusions, or pleural | | rub, OR Typical pericardial pain (pain with recumbency improved | | by sitting forward) for more than one day, pericardial effusion, | | pericardial rub, or pericarditis by electrocardiography in the | | absence of other causes, such as infection, uremia, and | | Susie's syndrome YES Renal Urine [id number]-[id number] ratio | | (or 24-hour urine protein) representing 500 mg protein/24 hours, | | OR Red blood cell casts YES Neurologic Seizures; psychosis; | | mononeuritis multiplex (in the absence of other known causes, | | such as primary vasculitis); myelitis; peripheral or cranial | | neuropathy (in the absence of other known causes, such as primary | | vasculitis, infection, and diabetes mellitus); OR acute | | confusional state (in the absence of other causes, including | | toxic/metabolic, uremia, drugs) YES Hemolytic anemia Hemolytic | | anemia YES Leukopenia or lymphopenia Leukopenia (<4000/mm3 at | | least once) (in the absence of other known causes, such as | | Felty's syndrome, drugs, and portal hypertension), OR Lymphopenia | | (<1000/mm3 at least once) (in the absence of other known causes, | | such as glucocorticoids, drugs, and infection) NO | | Thrombocytopenia Thrombocytopenia (<100,000/mm3) at least once in | | the absence of other known causes, such as drugs, portal | | hypertension, and thrombotic thrombocytopenic purpura YES | | Immunologic criteria YES MARCO MARCO level above laboratory | | reference range YES Anti-dsDNA Anti-dsDNA antibody level above | | laboratory reference range (or >twofold the reference range if | | tested by NIECY) NO Anti-Sm Presence of antibody to Sm nuclear | | antigen NO Antiphospholipid Antiphospholipid antibody | | positivity as determined by any of the following: Positive test | | result for lupus anticoagulant; false-positive test result for | | rapid plasma reagin; medium- or high-titer anticardiolipin | | antibody level (IgA, IgG, or IgM); or positive test result for | | anti-beta 2-glycoprotein I (IgA, IgG, or IgM) YES Low | | complement Low C3; low C4; OR low CH50 YES Direct Bin' test | | Direct Bin' test in the absence of hemolytic anemiaDiagnosed | | in her teens. Past manifestations have included class 4 lupus | | nephritis, cerebritis, meningoencephalitis, leukopenia, | | thrombocytopenia. Past labs have shown positive dsDNA, MARCO, low | | complements, anti neuronal antibodies. Past treatments have | | included cytoxan, prednisone, plaquenil, MMF, Myfortic, | | rituximab. Last Assessment & Plan: ACR criteria + (Patient | | meets 04/15)Criterion Definition NO Malar rash Fixed erythema, | | flat or raised, over the malar eminences, tending to spare the | | nasolabial folds NO Photosensitivity Skin rash as a result of | | unusual reaction to sunlight, by patient history or clinician | | observation NO Discoid rash Erythematosus raised patches with | | adherent keratotic scaling and follicular plugging; atrophic | | scarring may occur in older lesions NO Oral ulcers Oral or | | nasopharyngeal ulceration, usually painless, observed by a | | clinician YES Arthritis Nonerosive arthritis involving two or | | more peripheral joints, characterized by tenderness, swelling, or | | effusion NO Serositis Pleuritis | | | | Convincing history of pleuritic pain or rubbing heard by a | | clinician or evidence of pleural effusion OR Pericarditis | | | | Documented by ECG, rub, or evidence of pericardial effusion YES | | Renal disorder Persistent proteinuria greater than 500 mg/24 | | hours or greater than 3+ if quantitation not performed OR | | Cellular casts | | | | May be red cell, hemoglobin, granular, tubular, or mixed YES | | Neurologic disorder Seizures OR psychosis | | | | In the absence of offending drugs or known metabolic | | derangements (uremia, ketoacidosis, or electrolyte imbalance) YES | | Hematologic disorder Hemolytic anemia | | | | With reticulocytosis ORLeukopenia | | | | Less than 4000/mm3 total on two or more occasions ORLymphopenia | | | | | | Less than 1500/mm3 on two or more occasions ORThrombocytopenia | | | | | | Less than 100,000/mm3 (in the absence of offending drugs) YES | | MARCO An abnormal titer of MARCO by immunofluorescence or an | | equivalent assay at any point in time and in the absence of drugs | | known to be associated with "drug-induced lupus" syndrome YES | | Immunologic disorders Anti-DNA | | | | Antibody to [place] DNA in abnormal titer ORAnti-Sm | | | | Presence of antibody to Sm nuclear antigen ORPositive finding of | | antiphospholipid antibody based on an abnormal serum level of | | IgG or IgM anticardiolipin antibodies, on a positive test result | | for lupus anticoagulant using a standard method, or on a | | false-positive serologic test for syphilis known to be positive | | for at least six months and confirmed by Treponema pallidum | | immobilization or fluorescent treponemal antibody absorption test | | SLICC criteria + (08/21) NO Acute cutaneous lupus Lupus malar | | rash (do not count if malar discoid); bullous lupus; toxic | | epidermal necrolysis variant of SLE; maculopapular lupus rash; | | photosensitive lupus rash (in the absence of dermatomyositis); OR | | subacute cutaneous lupus (nonindurated psoriaform and/or annular | | polycyclic lesions that resolve without scarring, although | | occasionally with postinflammatory dyspigmentation or | | telangiectasias) NO Chronic cutaneous lupus Classic discoid rash; | | localized (above the neck); generalized (above and below the | | neck); hypertrophic (verrucous) lupus; lupus panniculitis | | (profundus); mucosal lupus; lupus erythematosus tumidus; | | chilblains lupus; OR discoid lupus/lichen planus overlap NO | | Nonscarring alopecia Diffuse thinning or hair fragility with | | visible broken hairs (in the absence of other causes, such as | | alopecia areata, drugs, iron deficiency, and androgenic alopecia) | | NO Oral or nasal ulcers Palate, buccal, tongue, OR nasal ulcers | | (in the absence of other causes, such as vasculitis, Beh et's | | disease, infection [herpesvirus], inflammatory bowel disease, | | reactive arthritis, and acidic foods) NO Joint disease Synovitis | | involving two or more joints, characterized by swelling or | | effusion OR Tenderness in two or more joints and at least 30 | | minutes of morning stiffness YES Serositis Typical pleurisy for | | more than one day, pleural effusions, or pleural rub, OR Typical | | pericardial pain (pain with recumbency improved by sitting | | forward) for more than one day, pericardial effusion, pericardial | | rub, or pericarditis by electrocardiography in the absence of | | other causes, such as infection, uremia, and Susie's syndrome | | YES Renal Urine pgxknrs-qg-[id number] ratio (or 24-hour urine | | protein) representing 500 mg protein/24 hours, OR Red blood cell | | casts YES Neurologic Seizures; psychosis; mononeuritis multiplex | | (in the absence of other known causes, such as primary | | vasculitis); myelitis; peripheral or cranial neuropathy (in the | | absence of other known causes, such as primary vasculitis, | | infection, and diabetes mellitus); OR acute confusional state (in | | the absence of other causes, including toxic/metabolic, uremia, | | drugs) YES Hemolytic anemia Hemolytic anemia YES Leukopenia or | | lymphopenia Leukopenia (<4000/mm3 at least once) (in the absence | | of other known causes, such as Felty's syndrome, drugs, and | | portal hypertension), OR Lymphopenia (<1000/mm3 at least once) | | (in the absence of other known causes, such as glucocorticoids, | | drugs, and infection) NO Thrombocytopenia Thrombocytopenia | | (<100,000/mm3) at least once in the absence of other known | | causes, such as drugs, portal hypertension, and thrombotic | | thrombocytopenic purpura YES Immunologic criteria YES MARCO MARCO | | level above laboratory reference range YES Anti-dsDNA Anti-dsDNA | | antibody level above laboratory reference range (or >twofold the | | reference range if tested by NIECY) NO Anti-Sm Presence of | | antibody to Sm nuclear antigen NO Antiphospholipid | | Antiphospholipid antibody positivity as determined by any of the | | following: Positive test result for lupus anticoagulant; | | false-positive test result for rapid plasma reagin; medium- or | | high-titer anticardiolipin antibody level (IgA, IgG, or IgM); or | | positive test result for anti-beta 2-glycoprotein I (IgA, IgG, or | | IgM) YES Low complement Low C3; low C4; OR low CH50 YES Direct | | Bin' test Direct Bin' test in the absence of hemolytic | | anemiaDiagnosed in her teens. Past manifestations have included | | class 4 lupus nephritis, cerebritis, meningoencephalitis, | | leukopenia, thrombocytopenia. Past labs have shown positive | | dsDNA, MARCO, low complements, anti neuronal antibodies. Past | | treatments have included cytoxan, prednisone, plaquenil, MMF, | | Myfortic, rituximab.Recent joint flares. If patient flares again | | we may need to consider adjusting her treatment regimen. No | | change in treatment plan. Patient understands that treatment is | | mcfp and if patient fails to continue regimen , the disease | | has propensity to flare. | + + Encounters +--------+ + + + + | Date | Type | Specialty | Care Team | Description | +--------+ + + + + | 10/07/ | Telephone | Nephrology | Cristian Wallace MD | Other (Patient call) | | 2018 | | | | | +--------+ + + + + | 10/06/ | Office | Nephrology | Cristian Wallace MD | SLE | | 2018 | Visit | | | glomerulonephritis | | | | | | syndrome (HCC) | | | | | | (Primary Dx); | | | | | | 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, | | | | | | unspecified SLE type | | | | | | (HCC); Microscopic | | | | | | hematuria; | | | | | | Persistent | | | | | | proteinuria; 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[facility]); | | | | | | High risk medication | | | | | | use; | | | | | | Immunosuppressed | | | | | | status ([facility]); | | | | | | 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 | | | | | | ([facility]); General | | | | | | counselling and | | | | | | advice on | | | | | | contraception | +--------+ + + + + | 10/06/ | Orders Only | Nephrology | Cristian Wallace MD | 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[facility]) | | | | | | (Primary Dx); | | | | | | 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, | | | | | | unspecified SLE type | | | | | | ([facility]); Persistent | | | | | | proteinuria | +--------+ + + + + | 10/06/ | Documentati | Nephrology | Marcial, | Results (10/01/19) | | 2019 | on | | Zara Waterman | | | | | | Yarn Examiner | | +--------+ + + + + | 09/26/ | Telephone | Nephrology | Cristian Wallace MD | Other (Appointment | | 2018 | | | | reminder call ) | +--------+ + + + + | 09/17/ | Telephone | Rheumatology | Felipa Stuart, | Pain | | 2018 | | | COTTON BREEDER | | +--------+ + + + + | 09/16/ | Telephone | Rheumatology | Tracie Brizuela, | Pain | | 2018 | | | RN | | +--------+ + + + + | 08/25/ | Office | Rheumatology | Genevieve Hudson | SLE | | 2018 | Visit | | KITTY Hansen | glomerulonephritis | | | | | | syndrome (HCC) | | | | | | (Primary Dx); High | | | | | | risk medication use; | | | | | | General counselling | | | [...] | | | | status (HCC) | +--------+ + + + + | 08/20/ | Telephone | Rheumatology | Tracie Brizuela, | Pain | | 2018 | | | RN | | +--------+ + + + + | 08/20/ | Telephone | Nephrology | Marcial, | Other (Urine | | 2018 | | | Zara Waterman | concerns) | | | | | Yarn Examiner | | +--------+ + + + + | 08/04/ | Refill | Rheumatology | Felipa Stuart, | Pain | | 2018 | | | C[employer] BREEDER | | +--------+ + + + + | 07/30/ | Refill | Rheumatology | Bianca Cardona | Medication Refill | | 2018 | | | MD Juve | (HCQ) | +--------+ + + + + | 07/21/ | Office | Rheumatology | Bianca Cardona | SLE | | 2018 | Visit | | MD Juve | glomerulonephritis | | | | | | syndrome (HCC) | | | | | | (Primary Dx); High | | | | | | risk medication use; | | | | | | General counselling | | | | | | and advice on | | | | | | contraception | +--------+ + + + + | 07/21/ | Orders Only | | Jj Harris, | 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 | | | | | | syndrome (HCC) | +--------+ + + + + from Last 3 Months Immunizations + + + + | Name | Administration Dates | Next Due | + + + + | PNEUMOCOCCAL | 07/06/2016 | | | CONJUGATE 13-VALENT | | | | (PCV13) | | | + + + + | PNEUMOCOCCAL | 08/17/2016 | | | POLYSACCHARIDE | | | | 23-VALENT (PPSV23) | | | + + + + | TDAP, (ADOL/ADULT) | 07/06/2016 | | + + + + Family History + + + + + | Medical History | Relation | Name | Comments | + + + + + | Heart disease | Father | | | + + + + + | Bipolar disorder | Mother | | | + + + + + | Breast cancer | Mother | | | + + + + + | Fibromyalgia | Mother | | | + + + + + | Other (see comment) | Other | great | Lupus | | | | paternal | | | | | aunt | | + + + + + | Colon cancer | Neg Hx | | | + + + + + | Diabetes | Neg Hx | | | + + + + + + + +--------+ + | Relation | Name | Status | Comments | + + +--------+ + | Father | | | | + + +--------+ + | Mother | | | | + + +--------+ + | Other | great | | RA | | | paternal | | | | | aunt | | | + + +--------+ + Social History + +-------+ +--------+------+ | [...] recent travel history available. | + + Last Filed Vital Signs + + + [...] | | + + + + + Plan of Treatment +--------+---------+ + + + | Date | Type | Specialty | Care Team | Description | +--------+---------+ + + + | 10/20/ | Office | Rheumatology | Genevieve Hudson | | | 2018 | Visit | | KITTY Hansen [address] | | | | | | [address] | | | | | | [place] [id number] | | | | | | [phone] | | | | | | | | +--------+---------+ + + + | 11/10/ | Office | Nephrology | Cristian Wallace MD | | | 2019 | Visit | | [address] | | | | | | [address] | | | | | | [id number] | | | | | | | | +--------+---------+ + + + + + + + + | Health Maintenance | Due Date | Last Done | Comments | + + + + + | Vaccine: HPV (1 - | | | | | Female 3-dose | 0 | | | | series) | | | | + + + + + | Cervical Cancer | | | | | Screening (Pap) | 6 | | | + + + + + | Vaccine: Influenza | | | | | (#1) | 9 | | | + + + + + | Vaccine: | | 07/06/2016 | | | Dtap/Tdap/Td (2 - | 6 | | | | Td) | | | | + + + + + Procedures + +--------+ + + + | Procedure Name | Priori | Date/Time | Associated Diagnosis | Comments | | | ty | | | | + +--------+ + + + | URINALYSIS | Routin | 10/01/2019 | | Results for this | | | e | | | procedure are in the | | | | | | results section. | + +--------+ + + + | CBC NO DIFFERENTIAL | Routin | 10/01/2019 | | Results for this | | | e | | | procedure are in the | | | | | | results section. | + +--------+ + + + | BASIC METABOLIC | Routin | 10/01/2019 | | Results for this | | PANEL | e | | | procedure are in the | | | | | | results section. | + +--------+ + + + | PROTEIN/CREATININE | Routin | 10/01/2019 | | Results for this | | RATIO, URINE | e | | | procedure are in the | | | | | | results section. | + +--------+ + + + | CULTURE, URINE | Routin | 10/01/2019 | | Results for this | | | e | | | procedure are in the | | | | | | results section. | + +--------+ + + + | LABS - EXTERNAL SCAN | | 07/24/2019 | | Results for this | | | | 12:00 AM | | procedure are in the | | | | PDT | | results section. | + +--------+ + + + | KETTY+DNA/DS+ANTICH+CE | Routin | 07/21/2019 | | Results for this | | NTRO+FA (NOT ORD) | e | 3:01 PM | | procedure are in the | | | | PDT | | results section. | + +--------+ + + + | LATOSHA CONCEPCION | Routin | 07/21/2019 | | Results for this | | PATTERNS (NOT ORD) | e | 3:01 PM | | procedure are in the | | | | PDT | | results section. | + +--------+ + + + | CBC WITH | Routin | 07/21/2019 | SLE | Results for this | | DIFFERENTIAL | e | 3:01 PM | glomerulonephritis | procedure are in the | | | | PDT | syndrome (HCC) | results section. | + +--------+ + + + | COMPREHENSIVE | Routin | 07/21/2019 | SLE | Results for this | | METABOLIC PANEL | e | 3:01 PM | glomerulonephritis | procedure are in the | | | | PDT | syndrome ([facility]) | results section. | + +--------+ + + + | SEDIMENTATION RATE | Routin | 07/21/2019 | SLE | Results for this | | | e | 3:01 PM | glomerulonephritis | procedure are in the | | | | PDT | syndrome ([facility]) | results section. | + +--------+ + + + | C-REACTIVE PROTEIN | Routin | 07/21/2019 | SLE | Results for this | | | e | 3:01 PM | glomerulonephritis | procedure are in the | | | | PDT | syndrome ([facility]) | results section. | + +--------+ + + + | DNA DOUBLE-STRANDED | Routin | 07/21/2019 | SLE | Results for this | | AB, IGG | e | 3:01 PM | glomerulonephritis | procedure are in the | | | | PDT | syndrome ([facility]) | results section. | + +--------+ + + + | MARCO, IFA | Routin | 07/21/2019 | SLE | Results for this | | | e | 3:01 PM | glomerulonephritis | procedure are in the | | | | PDT | syndrome ([facility]) | results section. | + +--------+ + + + | CISSE AB, IGG | Routin | 07/21/2019 | SLE | Results for this | | | e | 3:01 PM | glomerulonephritis | procedure are in the | | | | PDT | syndrome ([facility]) | results section. | + +--------+ + + + | C3 AND C4 | Routin | 07/21/2019 | SLE | Results for this | | | e | 3:01 PM | glomerulonephritis | procedure are in the | | | | PDT | syndrome ([facility]) | results section. | + +--------+ + + + | ANTINUCLEAR AB, | Routin | 07/21/2019 | SLE | Results for this | | TITER + PATTERN | e | 3:01 PM | glomerulonephritis | procedure are in the | | | | PDT | syndrome (HCC) | results section. | + +--------+ + + + | HEPATITIS C AB | Routin | 07/21/2019 | SLE | Results for this | | | e | 3:01 PM | glomerulonephritis | procedure are in the | | | | PDT | syndrome (HCC) | results section. | + +--------+ + + + | HEPATITIS B SURFACE | Routin | 07/21/2019 | SLE | Results for this | | AG | e | 3:01 PM | glomerulonephritis | procedure are in the | | | | PDT | syndrome (HCC) | results section. | + +--------+ + + + | HEPATITIS B CORE AB, | Routin | 07/21/2019 | SLE | Results for this | | TOTAL | e | 3:01 PM | glomerulonephritis | procedure are in the | | | | PDT | syndrome (HCC) | results section. | + +--------+ + + + | RHEUMATOID FACTOR, | Routin | 07/21/2019 | SLE | Results for this | | IGA, IGG AND IGM | e | 3:01 PM | glomerulonephritis | procedure are in the | | | | PDT | syndrome ([facility]) | results section. | + +--------+ + + + | CCP ANTIBODIES, IGG | Routin | 07/21/2019 | SLE | Results for this | | IGA | e | 3:01 PM | glomerulonephritis | procedure are in the | | | | PDT | syndrome (HCC) | results section. | + +--------+ + + + from Last 3 Months Results CBC with Manual Differential (10/01/2019) + + + + + + | Component | Value | Ref Range | Performed | Pathologist | | | | | At | Signature | + + + + + + | WBC | 4.4 (A) | 4.5 - 11.0 | | | + + + + + + | RBC | 3.82 | 3.80 - 5.10 | | | | | | M/uL | | | + + + + + + | Hemoglobin | 11.5 (A) | 12 - 16 | | | + + + + + + | Hematocrit, | 34.8 (A) | 35.0 - 45.0 % | | | | POC | | | | | + + + + + + | MCV | 91.1 | 81.0 - 99.0 fL | | | + + + + + + | MCH | 30.0 | 27.0 - 33.0 pg | | | + + + + + + | MCHC | 33.0 | 30.0 - 36.0 | | | | | | g/dL | | | + + + + + + | Platelet | 347 | 140 - 440 | | | | Count | | | | | | Plasma | | | | | + + + + + + | RDW | 11.9 | 10.5 - 15.0 | | | + + + + + + | Neutrophils | 65.3 | 39 - 80 | | | | , Absolute | | | | | + + + + + + | Absolute | 26.2 | 24 - 44 | | | | Lymphocytes | | | | | + + + + + + | Absolute | 7.3 | 0 - 12 | | | | Monocytes | | | | | + + + + + + | Eosinophils | 1.0 | 0 - 6 | | | | , Absolute | | | | | + + + + + + | Basophils, | 0.2 | 0 - 2 | | | | Absolute | | | | | + + + + + + + + | Specimen | + + | Blood | + + Protein/Creatinine Ratio, Urine (10/01/2019) + + + + + + | Component | Value | Ref Range | Performed | Pathologist | | | | | At | Signature | + + + + + + | Protein/Cre | 5,625.4 (A) | 0 - 150 | | | | at Ratio | | | | | + + + + + + + + | Specimen | + + | Urine | + + Urinalysis (10/01/2019) + + + + + + | Component | Value | Ref Range | Performed | Pathologist | | | | | At | Signature | + + + + + + | Color | yellow | | | | + + + + + + | Clarity | Slightly Cloudy | | | | + + + + + + | Specific | 1.017 | 1.001 - 1.030 | | | | [place] | | | | | + + + + + + | pH, Urine | 6.0 | 5.0 - 8.0 | | | + + + + + + | Protein, | 300 mg/dL (A) | Negative | | | | Urine | | | | | + + + + + + | Glucose, | Negative | Negative | | | | Urine | | | | | + + + + + + | Ketones, | Negative | Negative | | | | Urine | | | | | + + + + + + | Bilirubin, | Negative | Negative | | | | Urine | | | | | + + + + + + | Blood, | Moderate (A) | Negative | | | | Urine | | | | | + + + + + + | Nitrite, | Negative | Negative | | | | Urine | | | | | + + + + + + | Urobilinoge | Normal | < 0.2 mg/dL, | | | | n, Urine | | 1.0 mg/dL, 4.0 | | | | | | mg/dL, Normal, | | | | | | 1.0 E.U./dL, | | | | | | 0.2 E.U./dL, | | | | | | 0.2 mg/dL, | | | | | | Negative, 1 | | | | | | mg/dL, <2.0 | | | | | | mg/dL | | | + + + + + + | Leukocyte | Trace (A) | Negative | | | | Esterase, | | | | | | Urine | | | | | + + + + + + | CASTS | 2+ | | | | + + + + + + | WBC UA | 50 | /HPF | | | + + + + + + | RBC UA | 50 | /HPF | | | + + + + + + | Epithelial | 1+ | | | | | Cells | | | | | + + + + + + | CRYSTAL UA | Negative | | | | + + + + + + | Bacteria, | 1+ | | | | | UA | | | | | + + + + + + + + | Specimen | + + | Urine | + + Culture, Urine (10/01/2019) + + + + + + | Component | Value | Ref Range | Performed | Pathologist | | | | | At | Signature | + + + + + + | Urine | No Growth | | | | | Culture, | | | | | | Routine | | | | | + + + + + + + + | Specimen | + + | Urine | + + Basic Metabolic Panel (10/01/2019) + +---------+ + + + | Component | Value | Ref Range | Performed | Pathologist | | | | | At | Signature | + +---------+ + + + | Na | 141 | 132 - 143 | | | | | | mmol/L | | | + +---------+ + + + | K | 4.0 | 3.6 - 58.1 | | | | | | mmol/L | | | + +---------+ + + + | Cl | 106 | 95 - 112 mmol/L | | | + +---------+ + + + | CO2 | 28 | 19 - 31 mmol/L | | | + +---------+ + + + | Anion Gap | 11 | 7 - 21 mmol/L | | | + +---------+ + + + | Glucose | 95 | 70 - 100 mg/dL | | | + +---------+ + + + | Calcium | 7.8 (A) | 8.5 - 10.3 | | | + +---------+ + + + | BUN | 14 | 6 - 23 mg/dL | | | + +---------+ + + + | Creatinine | 0.79 | 0.60 - 1.35 | | | | | | mg/dL | | | + +---------+ + + + | Estimated | 89.0 | 60.0 - 140.0 | | | | GFR | | mL/min/1.73m2 | | | + +---------+ + + + | BUN/Creatin | 17.7 | 6.0 - 28.6 | | | | ine Ratio | | | | | + +---------+ + + + + + | Specimen | + + | Blood | + + LABS - EXTERNAL SCAN (07/24/2019 12:00 AM PDT) + + + | Narrative | Performed At | + + + | Ordered by an | | | unspecified provider. | | + + + Rheumatoid Factor IgA, IgG and IgM (07/21/2019 3:01 PM PDT) + + + + + + | Component | Value | Ref Range | Performed | Pathologist | | | | | At | Signature | + + + + + + | Rheumatoid | 86.4 (A)Comment: | EU/mL | REFERENCE | | | Factor IgG | Reference | | LAB | | | | Range:Negative: < 20 | | [facility] | | | | EU/mlBorderline/Equivoca | | LABORATORY | | | | l: 20-25 EU/mlPositive: | | | | | | > 25 EU/ml | | | | | | | | | | + + + + + + | Rheumatoid | 12.4Comment: Reference | EU/mL | REFERENCE | | | Factor IgA | Range:Negative: < 20 | | LAB | | | | EU/mlBorderline/Equivoca | | [facility] | | | | l: 20-25 EU/mlPositive: | | LABORATORY | | | | > 25 EU/ml | | | | | |Positive: > 25 EU/ml | | | | | | | | | | + + + + + + | Rheumatoid | 3.5Comment: Reference | IU/mL | REFERENCE | | | Factor IgM | Range:Negative: < 10 | | LAB | | | | IU/mlBorderline/Equivoca | | [facility] | | | | l: 10-12.5 | | LABORATORY | | | | IU/mlPositive: > 12.5 | | | | | | IU/mlThe presence of | | | | | | abnormal levels of all | | | | | | three rheumatoidfactor | | | | | | (RF) isotypes has a | | | | | | specificity of 99% for | | | | | | RheumatoidArthritis. | | | | | | IgA- RF alone can occur | | | | | | in [place] | | | | | | Schoenleinpurpura. RF in | | | | | | any isotype combination | | | | | | may be found | | | | | | inhepatitis C, Sjogren | | | | | | syndrome, and other | | | | | | chronic infections.*This | | | | | | test has been developed | | | | | | and performance | | | | | | parametershave been | | | | | | validated by [email or web address] | | | | | | [employer] This | | | | | | test hasnot been | | | | | | approved by the U.[place]. | | | | | | Food and Drug | | | | | | Administration(FDA); | | | | | | however, US FDA approval | | | | | | is not required for | | | | | | clinicaluse. It is not | | | | | | intended that clinical | | | | | | diagnosis and | | | | | | patientmanagement | | | | | | decisions be made using | | | | | | these results alone.This | | | | | | test has been validated | | | | | | using serum samples. | | | | | | [facility] has not | | | | | | determined the efficacy | | | | | | of this testwhen | | | | | | performed on CSF, | | | | | | plasma, joint or pleural | | | | | | fluidspecimens. The | | | | | | performance | | | | | | characteristics of this | | | | | | test weredetermined by | | | | | | [facility] | | | | | | Boxcar.Borderline/Equivocal | | | | | | RF results warrant | | | | | | redraw and retestingto | | | | | | confirm.Testing | | | | | | performed at [email or web address] | | | | | | [facility], [address], [facility] | | | | | | [facility],[place], [place] | | | | | | [phone]. | | | | + + + + + + + + | Specimen | + + | Blood | + + + + + + + | Performing | Address | City/State[facility] | Phone Number | | Organization | | | | + + + + + | REFERENCE LAB | [address] [place] [address] | [place] [address] | [phone] | | [facility] | Blvd[address] | | | | LABORATORY | | | | + + + + + | REFERENCE LAB | [address] [place] [address] | [place] [address] | | | [facility] | Blvd. | | | | LABORATORY | | | | + + + + + MARCO Staining Patterns (07/21/2019 3:01 PM PDT) + + + + + + | Component | Value | Ref Range | Performed | Pathologist | | | | | At | Signature | + + + + + + | Nuclear Ab | 1:320 (H) | | REFERENCE | | | Pattern.Nga | | | LAB | | | ogeneous | | | [facility] | | | | | | LABORATORY | | + + + + + + | Note: | (See Below)Comment: A | | REFERENCE | | | | positive MARCO result may | | LAB | | | | occur in healthy | | [facility] | | | | individuals (lowtiter) | | LABORATORY | | | | or be associated with a | | | | | | variety of diseases. | | | | | | Seeinterpretation | | | | | | chart which is not all | | | | | | inclusive:Pattern | | | | | | Antigen Detected | | | | | | Suggested Disease | | | | | | Association | | | | | | | | | | | | | | | | | | -------Homogeneous | | | | | | DNA(ds,ss), | | | | | | SLE - High titers | | | | | | Nucleosomes, | | | | | | | | | | | | Histones | | | | | | Drug-induced | | | | | | SLE | | | | | | | | | | | | | | | | | | -------Speckled | | | | | | Sm, DIRECTOR OF FIRST IMPRESSIONS, SCL-70, | | | | | | SLE,MCTD,PSS (diffuse | | | | | | form), | | | | | | SS-A/SS-B | | | | | | Sjogrens | | | | | | | | | | | | | | | | | | -------Nucleolar | | | | | | SCL-70, PM-1/SCL | | | | | | High titers | | | | | | Scleroderma, | | | | | | | | | | | | | | | | | | PM/DM | | | | | | | | | | | | | | | | | | -------Centromere | | | | | | Centromere | | | | | | PSS (limited form) | | | | | | w/Crest | | | | | | | | | | | | syndrome | | | | | | variable | | | | | | | | | | | | | | | | | | -------Nuclear Dot | | | | | | [id number] | | | | | | Primary Biliary | | | | | | Cirrhosis | | | | | | | | | | | | | | | | | | -------Nuclear | | | | | | [id number], | | | | | | Primary Biliary | | | | | | CirrhosisMembrane | | | | | | jannet A,B,C | | | | | | | | | | | | | | | | | | -------Testing performed | | | | | | at [facility], [address] | | | | | | [place] | | | | | | [id number] | | | | + + + + + + + + | Specimen | + + | | + + + + + + + | Performing | Address | City/State/Zipcode | Phone Number | | Organization | | | | + + + + + | REFERENCE LAB | [address] | [place] [address] | [phone] | | [facility] | Blvd. | | | | LABORATORY | | | | + + + + + | REFERENCE LAB | [address] [facility] [address] | [place] [address] | | | [facility] | Blvd. | | | | LABORATORY | | | | + + + + + Antinuclear Ab, Titer + Pattern (07/21/2019 3:01 PM PDT) + + + + + + | Component | Value | Ref Range | Performed | Pathologist | | | | | At | Signature | + + + + + + | MARCO | Positive (A)Comment: | | REFERENCE | | | | | | LAB | | | | | | [facility] | | | | Negative <1:80 | | LABORATORY | | | | | | | | | | | | | | | | Borderline 1:80 | | | | | | | | | | | | | | | | | | Positive | | | | | | >1:80Testing performed | | | | | | at [facility], [address] | | | | | | [place] | | | | | | [address] | | | | + + + + + + + + | Specimen | + + | Blood | + + + + + + + | Performing | Address | City/State/Zipcode | Phone Number | | Organization | | | | + + + + + | REFERENCE LAB | [address] [place] [address] | [place] [address] | [phone] | | [facility] | Blvd. | | | | LABORATORY | | | | + + + + + | REFERENCE LAB | [address] [facility] [address] | [place] [address] | | | [facility] | Blvd. | | | | LABORATORY | | | | + + + + + CCP Antibodies, IgG IgA (07/21/2019 3:01 PM PDT) + + + + + + | Component | Value | Ref Range | Performed | Pathologist | | | | | At | Signature | + + + + + + | Cyclic | 4Comment: | 0 - 19 units | REFERENCE | | | citrullinat | | | LAB | | | ed peptide | Negative | | [facility] | | | Ab.IgA+IgG | <20 | | LABORATORY | | | | | | | | | | Weak positive 20 | | | | | | - 39 | | | | | | | | | | | | Moderate positive 40 - | | | | | | 59 | | | | | | Strong | | | | | | positive | | | | | | >59Testing performed | | | | | | by [facility], [address] [place] [address] | | | | | | [place] | | | | | | [address] | | | | + + + + + + + + | Specimen | + + | Blood | + + + + + + + | Performing | Address | City/State/Zipcode | Phone Number | | Organization | | | | + + + + + | REFERENCE LAB | [address] [facility] | [place] [address] | [phone] | | [facility] | Blvd. | | | | LABORATORY | | | | + + + + + | REFERENCE LAB | [address] [facility] | [place] [address] | | | [facility] | Blvd. | | | | LABORATORY | | | | + + + + + MARCO, IFA (07/21/2019 3:01 PM PDT) + + + + + + | Component | Value | Ref Range | Performed | Pathologist | | | | | At | Signature | + + + + + + | MARCO | Positive (A)Comment: | | REFERENCE | | | | | | LAB | | | | | | [facility] | | | | Negative <1:80 | | LABORATORY | | | | | | | | | | | | | | | | Borderline 1:80 | | | | | | | | | | | | | | | | | | Positive >1:80 | | | | + + + + + + | Please | (See Below)Comment: MARCO | | REFERENCE | | | Note: | Multiplex methodology | | LAB | | | | was designed to detect | | [facility] | | | | up to 11 antibodiesof | | LABORATORY | | | | the 100+ antibodies that | | | | | | may be detected by MARCO | | | | | | IFA methodology.Testing | | | | | | performed at [facility], [address] | | | | | [facility] | | | | | | [place] [id number] | | | | + + + + + + + + | Specimen | + + | Blood | + + + + + + + | Performing | Address | City/State/Zipcode | Phone Number | | Organization | | | | + + + + + | REFERENCE LAB | [address] [place] [address] | [place] [address] | [phone] | | [facility] | Blvd. | | | | LABORATORY | | | | + + + + + | REFERENCE LAB | [address] [place] [address] | [place] [address] | | | [facility] | Blvd. | | | | LABORATORY | | | | + + + + + KETTY+DSDNA+Antich+Centro+FA (07/21/2019 3:01 PM PDT) + + + + + + | Component | Value | Ref Range | Performed | Pathologist | | | | | At | Signature | + + + + + + | Nuclear Ab | 1:320 (H) | | REFERENCE | | | Pattern.Nga | | | LAB | | | ogeneous | | | [facility] | | | | | | LABORATORY | | + + + + + + | Note: | (See Below)Comment: A | | REFERENCE | | | | positive MARCO result may | | LAB | | | | occur in healthy | | [facility] | | | | individuals (lowtiter) | | LABORATORY | | | | or be associated with a | | | | | | variety of diseases. | | | | | | Seeinterpretation | | | | | | chart which is not all | | | | | | inclusive:Pattern | | | | | | Antigen Detected | | | | | | Suggested Disease | | | | | | Association | | | | | | | | | | | | | | | | | | -------Homogeneous | | | | | | DNA(ds,ss), | | | | | | SLE - High titers | | | | | | Nucleosomes, | | | | | | | | | | | | Histones | | | | | | Drug-induced | | | | | | SLE | | | | | | | | | | | | | | | | | | -------Speckled | | | | | | Sm, DIRECTOR OF FIRST IMPRESSIONS, SCL-70, | | | | | | SLE,MCTD,PSS (diffuse | | | | | | form), | | | | | | SS-A/SS-B | | | | | | Sjogrens | | | | | | | | | | | | | | | | | | -------Nucleolar | | | | | | SCL-70, PM-1/SCL | | | | | | High titers | | | | | | Scleroderma, | | | | | | | | | | | | | | | | | | PM/DM | | | | | | | | | | | | | | | | | | -------Centromere | | | | | | Centromere | | | | | | PSS (limited form) | | | | | | w/Crest | | | | | | | | | | | | syndrome | | | | | | variable | | | | | | | | | | | | | | | | | | -------Nuclear Dot | | | | | | [id number] | | | | | | Primary Biliary | | | | | | Cirrhosis | | | | | | | | | | | | | | | | | | -------Nuclear | | | | | | [id number], | | | | | | Primary Biliary | | | | | | CirrhosisMembrane | | | | | | jannet A,B,C | | | | | | | | | | | | | | | | | | ------- | | | | + + + + + + | DS DNA AB | >300 (H)Comment: | 0 - 9 IU/mL | REFERENCE | | | | | | LAB | | | | | | [facility] | | | | Negative <5 | | LABORATORY | | | | | | | | | | | | | | | | Equivocal 5 - 9 | | | | | | | | | | | | | | | | | | Positive >9 | | | | + + + + + + | DIRECTOR OF FIRST IMPRESSIONS | 0.4 | 0.0 - 0.9 AI | REFERENCE | | | Autoantibod | | | LAB | | | y | | | [facility] | | | | | | LABORATORY | | + + + + + + | CISSE | 3.3 (H) | 0.0 - 0.9 AI | REFERENCE | | | ANTIBODY | | | LAB | | | | | | [facility] | | | | | | LABORATORY | | + + + + + + | SCL-70 | <0.2 | 0.0 - 0.9 AI | REFERENCE | | | Autoantibod | | | LAB | | | y | | | [facility] | | | | | | LABORATORY | | + + + + + + | SS-A | <0.2 | 0.0 - 0.9 AI | REFERENCE | | | Autoantibod | | | LAB | | | y | | | [facility] | | | | | | LABORATORY | | + + + + + + | SS-B | <0.2 | 0.0 - 0.9 AI | REFERENCE | | | Autoantibod | | | LAB | | | y | | | [facility] | | | | | | LABORATORY | | + + + + + + | Antichromat | >8.0 (H) | 0.0 - 0.9 AI | REFERENCE | | | in IgG, | | | LAB | | | Antibodies | | | [facility] | | | | | | LABORATORY | | + + + + + + | JANNY-1 | <0.2 | 0.0 - 0.9 AI | REFERENCE | | | ANTIBODY | | | LAB | | | IGG | | | [facility] | | | | | | LABORATORY | | + + + + + + | Centromere | <0.2 | 0.0 - 0.9 AI | REFERENCE | | | B | | | LAB | | | Autoantibod | | | [facility] | | | y | | | LABORATORY | | + + + + + + | See below: | (See Below)Comment: | | REFERENCE | | | | Autoantibody | | LAB | | | | | | [facility] | | | | Disease | | LABORATORY | | | | Association | | | | | | | | | | | | | | | | | | | | | | | | Condition | | | | | | | | | | | | Frequency | | | | | | -------- | | | | | | | | | | | | ---------Antinuclear | | | | | | Antibody, SLE, | | | | | | mixed connectiveDirect | | | | | | (MARCO-D) | | | | | | tissue | | | | | | diseases | | | | | | ----- | | | | | | | | | | | | ---------dsDNA | | | | | | | | | | | | SLE | | | | | | 40 - | | | | | | 60% | | | | | | | | | | | | | | | | | | ---------Chromatin | | | | | | | | | | | | Drug induced SLE | | | | | | 90% | | | | | | | | | | | | SLE | | | | | | | | | | | | 48 - | | | | | | 97% | | | | | | | | | | | | | | | | | | ---------SSA (Ro) | | | | | | | | | | | | SLE | | | | | | 25 - 35% | | | | | | | | | | | | Sjogren's | | | | | | Syndrome 40 | | | | | | - 70% | | | | | | | | | | | | Lupus | | | | | | | | | | | | 100% | | | | | | - | | | | | | | | | | | | ---------SSB (La) | | | | | | | | | | | | SLE | | | | | | | | | | | | 10% | | | | | | Sjogren's | | | | | | Syndrome | | | | | | | | | | | | 30% | | | | | | -- | | | | | | | | | | | | ---------Sm | | | | | | (anti-Cisse) | | | | | | SLE | | | | | | 15 - | | | | | | 30% | | | | | | | | | | | | | | | | | | ---------DIRECTOR OF FIRST IMPRESSIONS | | | | | | | | | | | | Mixed Connective | | | | | | Tissue | | | | | | | | | | | | Disease | | | | | | | | | | | | 95%(U1 nRNP, | | | | | | SLE | | | | | | | | | | | | 30 - | | | | | | 50%anti-ribonucleoprotei | | | | | | n) Polymyositis and/or | | | | | | | | | | | | | | | | | | Dermatomyositis | | | | | | | | | | | | 20% | | | | | | | | | | | | | | | | | | ---------Scl-70 | | | | | | (antiDNA | | | | | | Scleroderma (diffuse) | | | | | | 20 - | | | | | | 35%topoisomerase) | | | | | | Crest | | | | | | | | | | | | | | | | | | 13% | | | | | | | | | | | | | | | | | | ---------Janny-1 | | | | | | | | | | | | Polymyositis and/or | | | | | | | | | | | | Dermatomyositis | | | | | | 20 - | | | | | | 40% | | | | | | | | | | | | | | | | | | ---------Centromere | | | | | | B | | | | | | Scleroderma - Crest | | | | | | | | | | | | variant | | | | | | | | | | | | 80%Testing performed | | | | | | at [facility], [address] | | | | | | [place] | | | | | | [id number] | | | | + + + + + + + + | Specimen | + + | | + + + + + + + | Performing | Address | City/State/Zipcode | Phone Number | | Organization | | | | + + + + + | [facility]FER[facility] | [address] [place] [address] | [place] [address] | [phone] | | [facility] | [address]vd[address] | | | | LABORATORY | | | | + + + + + | [facility] | [address] [place] [address] | [place] [address] | | | [facility] | Blvd[address] | | | | LABORATORY | | | | + + + + + C3 and C4 (07/21/2019 3:01 PM PDT) + + + + + + | Component | Value | Ref Range | Performed | Pathologist | | | | | At | Signature | + + + + + + | C3 | 55 (L) | 90 - 180 mg/dL | REFERENCE | | | COMPLEMENT | | | LAB | | | | | | [facility] | | | | | | LABORATORY | | + + + + + + | C4 | 6.3 (L)Comment: Testing | 10 - 40 mg/dL | REFERENCE | | | COMPLEMENT | performed at [facility];[address] | | LAB | | | | [place] | | [facility] | | | | [address];[place] [address] | | LABORATORY | | + + + + + + + + | Specimen | + + | Blood | + + + + + + + | Performing | Address | City/State/Zipcode | Phone Number | | Organization | | | | + + + + + | REFERENCE LAB | [address] | [place] [address] | [phone] | | [facility] | Blvd[address] | | | | LABORATORY | | | | + + + + + | REFERENCE LAB | [address] | [place] [address] | | | [facility] | Blvd[address] | | | | LABORATORY | | | | + + + + + Hepatitis C Ab (07/21/2019 3:01 PM PDT) + + + + + + | Component | Value | Ref Range | Performed | Pathologist | | | | | At | Signature | + + + + + + | HCV Ab | NON REACTIVEComment: | NR | REFERENCE | | | | Absence of Hepatitis C | | LAB | | | | antibody suggests no | | [facility] | | | | past Hepatitis C virus | | LABORATORY | | | | infection. Since | | | | | | antibody development may | | | | | | be delayed up to 6 | | | | | | months after | | | | | | infection,retesting may | | | | | | be indicated.Testing | | | | | | performed at [facility];[address] | | | | | [facility] | | | | | | Blvd;[place] [address] | | | | | | | | | | + + + + + + + + | Specimen | + + | Blood | + + + + + + + | Performing | Address | City/State/Zipcode | Phone Number | | Organization | | | | + + + + + | REFERENCE LAB | [address] | [place] [address] | [phone] | | [facility] | Blvd[address] | | | | LABORATORY | | | | + + + + + | REFERENCE LAB | [address] | [place] [id number] | | | [facility] | Blvd[address] | | | | LABORATORY | | | | + + + + + Betito Ab, IgG (07/21/2019 3:01 PM PDT) + + + + + + | Component | Value | Ref Range | Performed | Pathologist | | | | | At | Signature | + + + + + + | CISSE | 3.5 (H)Comment: Testing | 0.0 - 0.9 AI | REFERENCE | | | ANTIBODY | performed at [facility], [address] | | LAB | | | | [facility] | | [facility] | | | | [place] [id number] | | LABORATORY | | + + + + + + + + | Specimen | + + | Blood | + + + + + + + | Performing | Address | City/State/Zipcode | Phone Number | | Organization | | | | + + + + + | REFERENCE LAB | [address] | [place] [address] | [phone] | | [facility] | Blvd[address] | | | | LABORATORY | | | | + + + + + | REFERENCE LAB | [address] | [place] [address] | | | [facility] | Blvd[address] | | | | LABORATORY | | | | + + + + + Sedimentation Rate (07/21/2019 3:01 PM PDT) + + + + + + | Component | Value | Ref Range | Performed | Pathologist | | | | | At | Signature | + + + + + + | ESR | 28 (H)Comment: Testing | 0 - 20 mm/Hr | REFERENCE | | | | performed at [facility];[address] | | LAB | | | | [place] | | [facility] | | | | [address];[place] [address] | | LABORATORY | | + + + + + + + + | Specimen | + + | Blood | + + + + + + + | Performing | Address | City/State/Zipcode | Phone Number | | Organization | | | | + + + + + | REFERENCE LAB | [address] [place] [address] | [place] [address] | [phone] | | [facility] | Blvd[address] | | | | LABORATORY | | | | + + + + + | REFERENCE LAB | [address] [place] [address] | [place] [address] | | | [facility] | Blvd[address] | | | | LABORATORY | | | | + + + + + DNA Double-Stranded Ab, IgG (07/21/2019 3:01 PM PDT) + + + + + + | Component | Value | Ref Range | Performed | Pathologist | | | | | At | Signature | + + + + + + | DS DNA AB | >300 (H)Comment: | 0 - 9 IU/mL | REFERENCE | | | | | | LAB | | | | | | [facility] | | | | Negative <5 | | LABORATORY | | | | | | | | | | | | | | | | Equivocal 5 - 9 | | | | | | | | | | | | | | | | | | Positive | | | | | | >9Testing performed at | | | | | | [facility], [address] | | | | | | [place] | | | | | | [address] | | | | + + + + + + + + | Specimen | + + | Blood | + + + + + + + | Performing | Address | City/State/Zipcode | Phone Number | | Organization | | | | + + + + + | REFERENCE LAB | [address] [place] [address] | [place] [address] | [phone] | | [facility] | Blvd[address] | | | | LABORATORY | | | | + + + + + | REFERENCE LAB | [address] [place] [address] | [place] [address] | | | [facility] | Blvd[address] | | | | LABORATORY | | | | + + + + + Hepatitis B Core Ab, Total (07/21/2019 3:01 PM PDT) + + + + + + | Component | Value | Ref Range | Performed | Pathologist | | | | | At | Signature | + + + + + + | Hepatitis B | NON REACTIVEComment: | NR | REFERENCE | | | Core Ab | Testing performed at | | LAB | | | Total | [facility];[address] [facility] | | [facility] | | | | Blvd;[place] [address] | | LABORATORY | | + + + + + + + + | Specimen | + + | Blood | + + + + + + + | Performing | Address | City/State/Zipcode | Phone Number | | Organization | | | | + + + + + | REFERENCE LAB | [address] | [place] [address] | [phone] | | [facility] | Blvd[address] | | | | LABORATORY | | | | + + + + + | REFERENCE LAB | [address] | [place] [id number] | | | [facility] | Blvd. | | | | LABORATORY | | | | + + + + + Hepatitis B Surface Ag (07/21/2019 3:01 PM PDT) + + + + + + | Component | Value | Ref Range | Performed | Pathologist | | | | | At | Signature | + + + + + + | Hepatitis B | NON REACTIVEComment: | NR | REFERENCE | | | Surface Ag | Testing performed at | | LAB | | | | [facility];[address] [facility] | | [facility] | | | | Blvd;[place] [id number] | | LABORATORY | | + + + + + + + + | Specimen | + + | Blood | + + + + + + + | Performing | Address | City/State/Zipcode | Phone Number | | Organization | | | | + + + + + | REFERENCE LAB | [address] [place] [address] | [place] [address] | [phone] | | [facility] | Blvd[address] | | | | LABORATORY | | | | + + + + + | REFERENCE LAB | [address] [place] [address] | [place] [address] | | | [facility] | Blvd[address] | | | | LABORATORY | | | | + + + + + CBC with Differential (07/21/2019 3:01 PM PDT) + + + + + + | Component | Value | Ref Range | Performed | Pathologist | | | | | At | Signature | + + + + + + | WBC | 5.24 | 3.80 - 11.00 | REFERENCE | | | | | K/uL | LAB | | | | | | [facility] | | | | | | LABORATORY | | + + + + + + | RBC | 4.25 | 3.70 - 5.10 | REFERENCE | | | | | M/uL | LAB | | | | | | [facility] | | | | | | LABORATORY | | + + + + + + | Hemoglobin | 13.2 | 11.3 - 15.5 | REFERENCE | | | | | g/dL | LAB | | | | | | [facility] | | | | | | LABORATORY | | + + + + + + | Hematocrit | 39.4 | 34.0 - 46.0 % | REFERENCE | | | | | | LAB | | | | | | [facility] | | | | | | LABORATORY | | + + + + + + | MCV | 92.7 | 80.0 - 100.0 fl | REFERENCE | | | | | | LAB | | | | | | [facility] | | | | | | LABORATORY | | + + + + + + | MCH | 31.0 | 27.0 - 34.0 pg | REFERENCE | | | | | | LAB | | | | | | [facility] | | | | | | LABORATORY | | + + + + + + | MCHC | 33.4 | 32.0 - 35.5 | REFERENCE | | | | | g/dL | LAB | | | | | | [facility] | | | | | | LABORATORY | | + + + + + + | RDW-SD | 42.0 | 37 - 53 fl | REFERENCE | | | | | | LAB | | | | | | [facility] | | | | | | LABORATORY | | + + + + + + | Platelet | 262 | 150 - 400 K/uL | REFERENCE | | | Count | | | LAB | | | | | | [facility] | | | | | | LABORATORY | | + + + + + + | MPV | 8.9 | fl | REFERENCE | | | | | | LAB | | | | | | [facility] | | | | | | LABORATORY | | + + + + + + | Diff Type | AUTOMATED | | REFERENCE | | | | | | LAB | | | | | | [facility] | | | | | | LABORATORY | | + + + + + + | % | 73.54 | % | REFERENCE | | | Neutrophils | | | LAB | | | | | | [facility] | | | | | | LABORATORY | | + + + + + + | % | 18.35 | % | REFERENCE | | | Lymphocytes | | | LAB | | | | | | [facility] | | | | | | LABORATORY | | + + + + + + | Monocyte % | 6.64 | % | REFERENCE | | | | | | LAB | | | | | | [facility] | | | | | | LABORATORY | | + + + + + + | Eosinophils | 1.01 | % | REFERENCE | | | % | | | LAB | | | | | | [facility] | | | | | | LABORATORY | | + + + + + + | Basophils % | 0.46 | % | REFERENCE | | | | | | LAB | | | | | | [facility] | | | | | | LABORATORY | | + + + + + + | Neutrophils | 3.85 | 1.90 - 7.40 | REFERENCE | | | , Absolute | | K/uL | LAB | | | | | | [facility] | | | | | | LABORATORY | | + + + + + + | Absolute | 0.96 (L) | 1.00 - 3.90 | REFERENCE | | | Lymphocytes | | K/uL | LAB | | | | | | [facility] | | | | | | LABORATORY | | + + + + + + | Absolute | 0.35 | 0.00 - 0.80 | REFERENCE | | | Monocytes | | K/uL | LAB | | | | | | [facility] | | | | | | LABORATORY | | + + + + + + | Eosinophils | 0.05 | 0.00 - 0.50 | REFERENCE | | | , Absolute | | K/uL | LAB | | | | | | [facility] | | | | | | LABORATORY | | + + + + + + | Basophils, | 0.02Comment: Testing | 0.00 - 0.10 | REFERENCE | | | Absolute | performed at [facility];[address] | K/uL | LAB | | | | [place] | | [facility] | | | | [address];[place] [address] | | LABORATORY | | + + + + + + + + | Specimen | + + | Blood | + + + + + + + | Performing | Address | City/State/Zipcode | Phone Number | | Organization | | | | + + + + + | REFERENCE LAB | [address] [place] [address] | [place] [address] | [phone] | | [facility] | Blvd[address] | | | | LABORATORY | | | | + + + + + | REFERENCE LAB | [address] [place] [address] | [place] [address] | | | [facility] | Blvd[address] | | | | LABORATORY | | | | + + + + + C-Reactive Protein (07/21/2019 3:01 PM PDT) + + + + + + | Component | Value | Ref Range | Performed | Pathologist | | | | | At | Signature | + + + + + + | CRP | <0.3Comment: Testing | <0.5 mg/dL | REFERENCE | | | | performed at [facility];[address] | | LAB | | | | [place] | | [facility] | | | | [address];[place] [address] | | LABORATORY | | + + + + + + + + | Specimen | + + | Blood | + + + + + + + | Performing | Address | City/State/Zipcode | Phone Number | | Organization | | | | + + + + + | REFERENCE LAB | [address] | [place] [address] | [phone] | | [facility] | Blvd[address] | | | | LABORATORY | | | | + + + + + | REFERENCE LAB | [address] | [place] [address] | | | [facility] | Blvd[address] | | | | LABORATORY | | | | + + + + + Comprehensive Metabolic Panel (07/21/2019 3:01 PM PDT) + + + + + + | Component | Value | Ref Range | Performed | Pathologist | | | | | At | Signature | + + + + + + | Na | 141 | 135 - 145 | REFERENCE | | | | | mmol/L | LAB | | | | | | [facility] | | | | | | LABORATORY | | + + + + + + | K | 3.9 | 3.5 - 4.9 | REFERENCE | | | | | mmol/L | LAB | | | | | | [facility] | | | | | | LABORATORY | | + + + + + + | Cl | 108 | 99 - 109 mmol/L | REFERENCE | | | | | | LAB | | | | | | [facility] | | | | | | LABORATORY | | + + + + + + | CO2 | 30 | 23 - 32 mmol/L | REFERENCE | | | | | | LAB | | | | | | [facility] | | | | | | LABORATORY | | + + + + + + | Anion Gap | 7 | 5 - 20 mmol/L | REFERENCE | | | | | | LAB | | | | | | [facility] | | | | | | LABORATORY | | + + + + + + | Glucose | 85 | 65 - 99 mg/dL | REFERENCE | | | | | | LAB | | | | | | [facility] | | | | | | LABORATORY | | + + + + + + | BUN | 8 | 8 - 25 mg/dL | REFERENCE | | | | | | LAB | | | | | | [facility] | | | | | | LABORATORY | | + + + + + + | Creatinine | 0.6 | 0.50 - 1.00 | REFERENCE | | | | | mg/dL | LAB | | | | | | [facility] | | | | | | LABORATORY | | + + + + + + | BUN/Creatin | 13 | | REFERENCE | | | ine Ratio | | | LAB | | | | | | [facility] | | | | | | LABORATORY | | + + + + + + | Calcium | 8.7 | 8.5 - 10.5 | REFERENCE | | | | | mg/dL | LAB | | | | | | [facility] | | | | | | LABORATORY | | + + + + + + | Protein, | 7.3 | 6.3 - 8.2 g/dL | REFERENCE | | | Total | | | LAB | | | | | | [facility] | | | | | | LABORATORY | | + + + + + + | Albumin | 3.6 | 3.6 - 5.0 g/dL | REFERENCE | | | | | | LAB | | | | | | [facility] | | | | | | LABORATORY | | + + + + + + | Globulin | 3.7 | 1.3 - 4.9 g/dL | REFERENCE | | | | | | LAB | | | | | | [facility] | | | | | | LABORATORY | | + + + + + + | A/G Ratio | 1.0 | 1.0 - 2.4 | REFERENCE | | | | | | LAB | | | | | | [facility] | | | | | | LABORATORY | | + + + + + + | BILIRUBIN, | 0.3 | 0.1 - 1.5 mg/dL | REFERENCE | | | TOTAL | | | LAB | | | | | | [facility] | | | | | | LABORATORY | | + + + + + + | ALK PHOS | 70 | 35 - 115 U/L | REFERENCE | | | | | | LAB | | | | | | [facility] | | | | | | LABORATORY | | + + + + + + | AST | 32 | 10 - 45 U/L | REFERENCE | | | | | | LAB | | | | | | [facility] | | | | | | LABORATORY | | + + + + + + | ALT | 45 | 10 - 65 U/L | REFERENCE | | | | | | LAB | | | | | | [facility] | | | | | | LABORATORY | | + + + + + + | Estimated | >60Comment: GFR <60: | >60 | REFERENCE | | | GFR | CHRONIC KIDNEY DISEASE, | mL/min/1.73m2 | LAB | | | | IF FOUND OVER A 3 MONTH | | [facility] | | | | PERIOD.GFR <15: KIDNEY | | LABORATORY | | | | FAILURE.FOR | | | | | | AMERICANS, MULTIPLY THE | | | | | | CALCULATED GFR BY | | | | | | 1.210.This eGFR is | | | | | | calculated using the | | | | | | MDRD IDMS traceable | | | | | | equation.Testing | | | | | | performed at [facility];[address] | | | | | | [facility] | | | | | | [facility];[place] [address] | | | | | | | | | | + + + + + + + + | Specimen | + + | Blood | + + + + + + + | Performing | Address | City/State/Zipcode | Phone Number | | Organization | | | | + + + + + | REFERENCE LAB | [address] [place] [address] [address] | [place] [id number] | [phone] | | [facility] | Blvd[address] | | | | LABORATORY | | | | + + + + + | REFERENCE LAB | [address] [place] [address] | [place] [id number] | | | [facility] | Blvd[address] | | | | LABORATORY | | | | + + + + + from Last 3 Months Insurance +-------+--------+ +--------+-------+---------+------+ | Payer | Benefi | Subscriber | Effect | Phone | Address | Type | | | t Plan | ID | [place] | | | | | | / | | Dates | | | | | | Group | | | | | | +-------+--------+ +--------+-------+---------+------+ | BCBS | BCBS | [id number] | 11/05/19 | | | PPO | | | FEDER[place] | | 19-Pre | | | | | | L FEP | | sent | | | | +-------+--------+ +--------+-------+---------+------+ | AETNA | AETNA | [id number] | | | | PPO | | | PPO | | 018-Pr | | | | | | | | esent | | | | +-------+--------+ +--------+-------+---------+------+ + +--------+ +--------+ + + | Guarantor Name | Accoun | Relation to | Date | Phone | Billing Address | | | t Type | Patient | of | | | | | | | | | | + +--------+ +--------+ + + | Brook Berman | Person | Self [birth year] | [address] | | [place] | al/Fam | | 1995 | [phone] | [address] [place] | | | [place] | | | [address] (Home) | [phone] | + +--------+ +--------+ + + Advance Directives + + + + + | Type | Date Recorded | Patient | Explanation | | | | 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
--- OUTSIDE RECORDS SUMMARY | ~2019-10-07 | XMS | Encounter Summary ---
Demographics + + + | Address | [address] | | | [place] [address] | + + + | Home Phone | | + + + | Preferred Language | Unknown | + + + | Marital Status | | + + + | Restorationism Affiliation | Unknown | + + + | Race | Unknown | + + + | Ethnic Group | Unknown | + + + Author + + + | Author | [facility] | | | and [place] | + + + | Organization | [facility] | | [...] Team Providers + +------+ + | Care Marketing Research Intern Name | Role | Phone | + +------+ + | Eric Bhatti DO | PCP | | + +------+ + Reason for Visit +--------+ + | Reason | Comments | +--------+ + | Other | Patient call | +--------+ + Encounter Details +--------+ + + + + | Date | Type | Department | Care Team | Description | +--------+ + + + + | 10/07/ | Telephone | [facility] | Cristian Wallace MD | Other (Patient call) | | 2019 | | NEPHROLOGY [place] | [address] | | | | | [address] | [address] [facility] [place] [place] | | | | | [address] | [address] | | | | | [place], [place] | | | | | | [address] | | | | | | [phone] | | | +--------+ + + + [...] 2018 | Visit | | KITTY Hansen [address] | | | | | | [facility] | | | | | | [place] [address] | | | | | | [phone] | | | | | | | | +--------+---------+ + + + | 11/10/ | Office | Nephrology | Cristian Wallace MD | | | 2020 | Visit | | [address] [facility] [address] | | | | | | [address] [place], [place] | | | | | | [address] | | | | | | | | +--------+---------+ + + + documented as of this encounter Visit Diagnoses Not on filedocumented in this encounter"
--- OUTSIDE RECORDS SUMMARY | ~2019-10-07 | XMS | Encounter Summary ---
Demographics + + + | Address | [address] | | | [place] [address] | + + + | Home Phone | | + + + | Preferred Language | Unknown | + + + | Marital Status | | + + + | Sikhism Affiliation | Unknown | + + + | Race | Unknown | + + + | Ethnic Group | Unknown | + + + Author + + + | Author | [facility] | | | and [place] | + + + | Organization | [facility] | | [...] Team Providers + +------+ + | Care Director Of Exhibits Name | Role | Phone | + +------+ + | Eric Bhatti DO | PCP | | + +------+ + Reason for Visit + + + | Reason | Comments | + + + | Rheumatology | New Consult | | Appointment | | + + + Evaluate & Treat (Routine) + +--------+ + + + + | Status | Reason | Specialty | Diagnoses / | Referred By | Referred To | | | | | Procedures | Contact | Contact | + +--------+ + + + + | Authorized | | | Diagnoses | Magy, | Rafat | | | | | Glomerular | DO Eric | Rheumatology | | | | | disease in | [address] | [address] | | | | | systemic | [address] | [address] | | | | | lupus | [address] | [place] | | | | | erythematosu | [place], | [address] | | | | | s (HCC) | [place] | Phone: | | | | | Glomerular | [address] | [phone] | | | | | disease in | Phone: | Fax: | | | | | systemic | [phone] | [phone] | | | | | lupus | Fax: | | | | | | erythematosu | [phone] | | | | | | s (HCC) | | | + +--------+ + + + + Encounter Details +--------+---------+ + + + | Date | Type | Department | Care Team | Description | +--------+---------+ + + + | 07/21/ | Office | [facility] | Bianca Cardona | SLE | | 2019 | Visit | RHEUMATOLOGY [address] | MD [address]ve [address] | glomerulonephritis | | | | [address] | [address] | syndrome (HCC) | | | | [place] | [place] [address] | (Primary Dx); High | | | | [address] | [phone] | risk medication use; | | | | [phone] | | General counselling | | | [...] + + + | Blood Pressure | 126/86 | 07/21/2019 2:31 PM | | | | | PDT | | + + + + + | Pulse | 75 | 07/21/2019 2:31 PM | | | | | PDT | | + + + + + | Temperature | 36.4 C (97.5 F) | 07/21/2019 2:31 PM | | | | | PDT | | + + + + + | Respiratory Rate | - | - | | + + + + + | Oxygen Saturation | - | - | | + + + + + | Inhaled Oxygen | - | - | | | Concentration | | | | + + + + + | Weight | 86.6 kg (191 lb) | 07/21/2019 2:31 PM | | | | | PDT | | + + + + + | Height | 165.1 cm (5' 5") | 07/21/2019 2:31 PM | | | | | PDT | | + + + + + | Body Mass Index | 31.78 | 07/21/2019 2:31 PM | | | | | PDT | | + + + + + documented in this encounter Patient Instructions Patient Instructions Stephany Sin, Family Assessment Worker - 07/21/2019 2:30 PM PDTWe hope t hat you have experienced exceptional care today and that you found our service to be courteo us and helpful. If you have any questions, you can send us a message/request using GoodApril or call our o ffice at [phone]. To reach the Family Assessment Worker , dial zaqpzsovq - [phone]- Stephany PASCAL If you are unable to reach a nurse during clinic hours, please leave a detailed message. We check our messages often and return calls in a timely manner during clinic hours. Orders for labs or imaging: Please remember that Dr Cardona will only call you if somethin g is concerning AND needs to be addressed, otherwise all results will be discussed at your n ext office visit. You can also review your results on Veros Systemshart. If you are experiencing an emergency, please call 911 documented in this encounter Progress Notes Bianca Cardona MD - 07/21/2019 2:30 PM PDTFormatting of this note might be differe nt from the original. Rheumatology New Patient / Outpatient CONSULT Referred by: Dr Eric Bhatti DO CC: lupus nephritis, transfer of care HPI: Brook Berman is a 23 y.o. female who is being seen for the above. [place] [facility] for college. PT rep orts in middle school both of her legs were swollen with darkening of her urine. Was seen in the ER with kidney failure. Was in renal failure with kidney biopsy done as well. No recent skin rashes. She has been following up with Nephrology and recently her myfortic dose was decreased. Feels like her lupus is stable with current regimen of HCQ and Myfortic however she ran out of her myfortic earlier this month. C/o fatigue on and off. No pregnancies. Is not using contraception, not sexually active. 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 She was biopsied: class IV lupus nephritis. Per notes from the Rheumatology team that I reviewed: "Patient had a positive MARCO, anti-DNA, low compl ement. Symptoms included arthritis, nephritis and cerebritis. 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 She had a lupus flare (arthritis) in 05/2019 improved with a high dose Prednisone course. Notes with rheum - 04/2018 SLE in January 2011 after presenting with arthritis involving multiple joints, hemolytic anem ia, MARCO panel titer of 1:1280, double-stranded DNA of 1:640, low complements, elevated ESR o f 82, low albumin as well as borderline renal function with a creatinine of 1.2 with active urinary sediment that was eventually found to be from class IV lupus nephritis. Pulse IV Anusha u-Medrol as well as IV Cytoxan for a total of 7 doseswere given. She was maintained on Qian lCept and Plaquenil as well as oral prednisone from January 2011 to December 2011. In February 22, her labs showed increased disease activity, thought to be secondary noncompliance to med ications. Hence CellCept dose was increased to 1500 mg twice daily and in March 2013, the raji ent received repeat IV pulse of Solu-Medrol for disease control. In September 2013, when she established care at [facility], both CellCept and HCQ were restarted but at follow up almost a yea r later she has stopped all medications on October 2013. On 07/30/14, her labs showed worsen ing disease activity with increased dsDNA and ESR and hypocomplementemia, so Myfortic was re started (she was not taking the MMF) and she was put on prednisone 20 mg daily. She had a ri tuximab infusion on 06/01/15 for cerebritis. Myfortic was increased to 720 mg BID in Aug 2015 to optimize disease control (not for relapse). Myfortic dose decreased to 720 mg bid 7 due to abdominal discomfort. Hep B, C negative (07/30/14). Quantiferon TB negative (05/15/15). +PCV13, +PPSV23, +TDaP. # SLE with history of class 4 lupus nephritis, arthralgia, +MARCO , +dsDNA, hypocomplementemi a, cerebritis, meningoencephalitis, leukopenia, thrombocytopenia, history of noncompliance, previously treated with cytoxan, prednisone, hydroxychloroquine, MMF, rituximab, currently c ontrolled - Decrease Myforticto 2 tablets in the morning and 1 tablet at night - Continue HCQ at 200 mg twice daily (breakfast and lunch) - Check C3, C4, CBC w/ diff, CMP, urinalysis,dsDNA today # Hot flash episode - Check TSH - Advised to see a paper feeder if this recurs and if the TSH is within normal range, espec corey with her history of receiving cyclophosphamide # High-risk medication use - Previously declined annual influenza vaccination - Last ophthalmology visit 02/06/17 - Previously counseled about medication risk of teratogenicity Allergies Allergen Reactions Morphine Nausea And Vomiting Penicillins Hives and Rash Sulfa Antibiotics Hives and Rash Current Outpatient Medications on File Prior to Visit Medication Sig Dispense Refill cholecalciferol (VITAMIN D-3) 2000 units TABS Take 2,000 Units by mouth Daily. Cyanocobalamin (VITAMIN B 12 PO) Take by mouth. hydroxychloroquine (PLAQUENIL) 200 mg tablet Take by mouth 2 times daily. magnesium, as oxide, 250 MG tablet Take 250 mg by mouth 2 times daily. naproxen (NAPROSYN) 500 mg tablet Take 500 mg by mouth 2 times daily (with breakfast & dinner). potassium 99 mg tablet Take 99 mg by mouth 2 times daily. pyridoxine (PYRIDOXINE) 100 mg tablet Take by mouth. No current facility-administered medications on file prior to visit. Past Medical History: Diagnosis Date Anemia Lupus (systemic lupus erythematosus) ([facility]) 2011 Osteoarthritis Proteinuria Rheumatoid arthritis ([facility]) 2011 Past Surgical History: Procedure Laterality Date KIDNEY BIOPSY OTHER SURGICAL HISTORY TONSILLECTOMY TONSILLECTOMY Social History Socioeconomic History Marital status: Spouse name: Not on file Number of children: Not on file Years of education: Not on file Highest education level: Not on file Social Needs Financial resource strain: Not on file Food insecurity - worry: Not on file Food insecurity - inability: Not on file Transportation needs - medical: Not on file Transportation needs - non-medical: Not on file Occupational History Not on file Tobacco Use Smoking status: Never Smoker Smokeless tobacco: Never Used Substance and Sexual Activity Alcohol use: Never Frequency: Never Drug use: Never Comment: Drug use: No Sexual activity: Not on file Other Topics Concern Not on file Social History Narrative Not on file Family History Problem Relation Age of Onset Bipolar disorder Mother Breast cancer Mother Fibromyalgia Mother Heart disease Father Other (see comment) Other Lupus Colon cancer Neg Hx Diabetes Neg Hx Autoimmune problems in the family - Great Paternal Aunt Lupus HX No miscarriages in past ROS Review of Systems Constitutional: Positive for fatigue. Negative for fever. HENT: Negative for mouth sores and sore throat. Eyes: Negative for pain. Respiratory: Negative for shortness of breath. Cardiovascular: Negative for chest pain. Gastrointestinal: Negative for abdominal pain and blood in stool. Musculoskeletal: Negative for arthralgias and joint swelling. Skin: Positive for color change (fingertips purple in cold). Negative for rash. Neurological: Positive for dizziness. Negative for headaches. Bianca Carrion MD personally reviewed the ROS PE: BP 126/86 | Pulse 75 | Temp 36.4 C (97.5 F) (Temporal) | Ht 1.651 m (5' 5") | Wt 86 .6 kg (191 lb) | ? No | BMI 31.78 kg/m Pain-0 Physical Exam HENT: Head: Atraumatic. Eyes: Conjunctivae are normal. Neck: Normal range of motion. Cardiovascular: Normal rate. Pulmonary/Chest: Effort normal. Abdominal: Soft. She exhibits no distension. Musculoskeletal: Musculoskeletal examination of the RIGHT and LEFT upper extremity, RIGHT and LEFT lower ext remity, spine, ribs ,pelvis ,head and neck was performed. Pertinent positive findings as fol lows: Hands: R hand-negative tenderness synovitis L hand-negative tenderness synovitis Elbows: synovitis negative Feet: L foot-MTP compression negative R foot-MTP compression negative Knees: R: Crepitus negative L:Crepitus negative Knee effusion negative Lymphadenopathy: She has no cervical adenopathy. Neurological: She is alert. Skin: No rash noted. Psychiatric: She has a normal mood and affect. Labs: Historical Visit Scan on 07/14/2019 Component Date Value Ref Range Status Color 06/23/2019 peggy Final Clarity, UA 06/23/2019 slightly cloudy Final Specific [place] 06/23/2019 1.026 1.005 - 1.030 Final pH, Urine 06/23/2019 7 5 - 9 Final Protein, UA, POC 06/23/2019 Negative Final 100 Glucose, Ur 06/23/2019 normal Final Ketones, UA 06/23/2019 neg Final Bilirubin, UA 06/23/2019 neg Final Blood, UA 06/23/2019 neg Final Nitrite, UA 06/23/2019 neg Final Urobilinogen, Urine 06/23/2019 Normal < 0.2 mg/dL, 1.0 mg/dL, 4.0 mg/dL, Normal, 1.0 E .U./dL, 0.2 E.U./dL, 0.2 mg/dL, Negative, 1 mg/dL, <2.0 mg/dL Final Leukocyte Esterase, Urine 06/23/2019 Negative Negative Final CASTS 06/23/2019 Negative Final WBC cast, UA 06/23/2019 2 0 - 4 Final RBC, UA 06/23/2019 15* 0 - 4 Final Epithelial cell cast, UA 06/23/2019 squamous2+ Final CRYSTAL UA 06/23/2019 Negative Final Bacteria, UA 06/23/2019 None Seen, 1-5, Occasional Final 1+ Protein, UA 06/23/2019 161* 0.0 - 50.0 Final Creatinine, Urine 06/23/2019 424.94 Final Protein/Creat Ratio 06/23/2019 378.9* 0 - 150 Final Assessment Assessment and Plan Visit Diagnoses and Associated Orders: Brook was seen today for rheumatology appointment. Diagnoses and all orders for this visit: SLE glomerulonephritis syndrome (HCC) +MARCO , +dsDNA, hypocomplementemia, cerebritis, meningoencephalitis, leukopenia, thrombocyto penia, history of noncompliance, previously treated with cytoxan, prednisone, hydroxychloroq uine, MMF, rituximab. Responding well to current treatment plan. No change in treatment plan. Patient understands that treatment is termite treater and if he/she fails to continue regimen , the disease has prop ensity to flare resulting in termite treater consequences and functionality limitation. - CBC with Differential; Future - Comprehensive Metabolic Panel; Future - Sedimentation Rate; Future - C-Reactive Protein; Future - DNA Double-Stranded Ab, IgG; Future - MARCO, IFA; Future - Cisse Ab, IgG; Future - C3 and C4; Future - Urinalysis with Microscopic if Indicated; Future - Protein/Creatinine Ratio, Urine; Future - Antinuclear Ab, Titer + Pattern; Future - Hepatitis C Ab; Future - Hepatitis B Surface Ag; Future - Hepatitis B Core Ab, Total; Future - Rheumatoid Factor IgA, IgG and IgM; Future - CCP Antibodies, IgG IgA; Future High risk medication use Eye exam was more than a year ago. She will get this updated. Eye letter provided. I discussed the possible side effects of Plaquenil with the patient, which overall are smal l. side effects reviewed - including but not limited to - retinal toxicity, which is very rare at the dose we use (which is less than 5 mg/kg per day maximum dose). This side effect happens 1 in 5000 usually after 5 years of use. To detect this possibility they will need to be seen by an air conditioning manager at least once a year. Other side effects of Plaquenil include nausea; therefore we recommend to take it with food twice a day. It can also cause rash, sk in hyperpigmentation, and tinnitus. We recommend use of sunblock. General counselling and advice on contraception Had a thorough discussion with patient regarding implications of on underlying rh eumatologic disease, indications, risks and benefits with the use of corticosteroids and ot her immunomodulatory drugs. Effects on itself and on the fetus itself by the medic ation or the rheumatologic autoimmune condition discussed. Patient understands need for marc se monitoring before, during and after with Rheumatology. Highly recommended that she discuss this with her OB and start some type of control. Other orders - mycophenolate (MYFORTIC) [address] tablet; Take 1 tablet by mouth 2 times daily. Patient was given ample opportunity to ask questions. Patient will follow up with their primary care physician in regards to non-rheumatological symptoms listed under review of systems Patient was advised to contact our office if there are any change in their symptoms Return in about 1 month (around 08/18/2019). Note will be routed to the referring provider I,Bianca Cardona MD, personally performed the services described in this documentation, wi th the scribe in my presence, and it is both accurate and complete. Dictation software Ricebookon/dictation services used, which may contain error for similar soun ding words even after review. Please do not hesitate to contact me for any clarification.Chantale ctronically signed by Bianca Cardona MD at 07/24/2019 9:05 PM PDTdocumented in this encounter Plan of Treatment +--------+---------+ + + + | Date | Type | Specialty | Care Team | Description | +--------+---------+ + + + | 10/20/ | Office | Rheumatology | Genevieve Hudson | | | 2019 | Visit | | KITTY Hansen [address] | | | | | | [facility] | | | | | | [place] [address] | | | | | | [phone] | | | | | | | | +--------+---------+ + + + | 11/10/ | Office | Nephrology | Cristian Wallace MD | | | 2019 | Visit | | [address] [facility] | | | | | | [address] [place], [place] | | | | | | [address] | | | | | | | | +--------+---------+ + + + + +------+--------+ + + | Name | Type | Priori | Associated Diagnoses | Order Schedule | | | | ty | | | + +------+--------+ + + | Urinalysis with | Lab | Routin | SLE | Expected: | | Microscopic if | | e | glomerulonephritis | 07/21/2019, Expires: | | Indicated | | | syndrome (HCC) | 07/21/2020 | + +------+--------+ + + | Protein/Creatinine | Lab | Routin | SLE | Expected: | | Ratio, Urine | | e | glomerulonephritis | 07/21/2019, Expires: | | | | | syndrome (HCC) | 07/21/2020 | + +------+--------+ + + documented as of this encounter Results CCP Antibodies, IgG IgA (07/21/2019 3:01 PM [...] | | | | | | by [facility], [facility] | | | | | | [facility] | | | | | | [address] | | | | + + + + + + + + | Specimen | + + | Blood | + + + + + + + | Performing | Address | City/State/Zipcode | Phone Number | | Organization | | | | + + + + + | REFERENCE LAB | [address] | [place] [address] | [phone] | | [facility] | [place] | | | | LABORATORY | | | | + + + + + | REFERENCE LAB | [address] [facility] | [place] [address] | | | [facility] | Blvd[address] | | | | LABORATORY | | | | + + + + + Rheumatoid Factor IgA, IgG [...] | | | | | validated by [facility] | | | | | | [employer] This | | | | | [...] by | | | | | | [employer] | | | | | | [employer]Borderline/Equivocal | | | | | | RF results warrant | | | | | | redraw and retestingto | | | | | | confirm.Testing | | | | | | performed at [facility] | | | | | | [employer], [address] | | | | | | [facility] | | | | | | [address],[place], [place] | | | | | | [address]. | | | | + + + + + + + + | Specimen | + + | Blood | + + + + + + + | Performing | Address | City/State/Zipcode | Phone Number | | Organization | | | | + + + + + | REFERENCE LAB | [address] [place] [address] | [place] [address] | [phone] | | [facility] | Blvd. | | | | LABORATORY | | | | + + + + + | REFERENCE LAB | [address] [place] [address] | [place] [address] | | | [facility] | Blvd. | [...] | LAB | | | Total | TCL;[address] [facility] | | [facility] | | | | Blvd;[place] [address] | | LABORATORY | | + + + + + + + + | Specimen | + + | Blood | + + + + + + + | Performing | Address | City/State/Zipcode | Phone Number | | Organization | | | | + + + + + | REFERENCE LAB | [address] [facility] | [place] [address] | [phone] | | [facility] | Blvd. | | | | LABORATORY | | | | + + + + + | REFERENCE LAB | [address] [place] [address] | [place] [address] | | | [facility] | Blvd. | [...] LAB | | | | TCL;[address] | | [facility] | | | | Blvd;[place] [address] | | LABORATORY | | + + + + + + + + | Specimen | + + | Blood | + + + + + + + | Performing | Address | City/State/Zipcode | Phone Number | | Organization | | | | + + + + + | REFERENCE LAB | [address] [place] [address] | [place] [address] | [phone] | | [facility] | Blvd. | | | | LABORATORY | | | | + + + + + | REFERENCE LAB | [address] [facility] | [place] [address] | | | [facility] | Blvd. | [...] | | | | | performed at [facility];[address] | | | | | | [address] | | | | | | [address];[place] [address] | | | | | | | | | | + + + + + + + + | Specimen | + + | Blood | + + + + + + + | Performing | Address | City/State/Zipcode | Phone Number | | Organization | | | | + + + + + | REFERENCE LAB | [address] [facility] | [place] [address] | [phone] | | [facility] | Blvd. | | | | LABORATORY | | | | + + + + + | REFERENCE LAB | [address] [facility] | [place] [address] | | | [facility] | Blvd. | [...] [place] | | | | | | [address] | | | | + + + + + + + + | Specimen | + + | Blood | + + + + + + + | Performing | Address | City/State/Zipcode | Phone Number | | Organization | | | | + + + + + | REFERENCE LAB | [address] [place] [address] | [place] [address] | [phone] | | [facility] | Blvd. | | | | LABORATORY | | | | + + + + + | REFERENCE LAB | [address] [place] [address] | [place] [address] | | | [facility] | Blvd. | [...] | | | COMPLEMENT | performed at TCL;[address] | | LAB | | | | [address] | | [facility] | | | | Blvd;[place] [address] | | LABORATORY | | + + + + + + + + | Specimen | + + | Blood | + + + + + + + | Performing | Address | City/State/Zipcode | Phone Number | | Organization | | | | + + + + + | REFERENCE LAB | [address] [place] [address] | [place] [address] | [phone] | | [facility] | Blvd. | | | | LABORATORY | | | | + + + + + | REFERENCE LAB | [address] [place] [address] | [place] [address] | | | [facility] | Blvd. | [...] | | | ANTIBODY | performed at [facility], [address] | | LAB | | | | [facility] | | [facility] | | | | [place] [address] | | LABORATORY | | + + + + + + + + | Specimen | + + | Blood | + + + + + + + | Performing | Address | City/State/Zipcode | Phone Number | | Organization | | | | + + + + + | REFERENCE LAB | [address] [facility] | [place] [address] | [phone] | | [facility] | Blvd. | | | | LABORATORY | | | | + + + + + | REFERENCE LAB | [address] [facility] | [place] [address] | | | [facility] | Blvd. | [...] | | | | | performed at [facility], [address] | | | | | | [facility] | | | | | | [place] [address] | | | | + + + + + + + + | Specimen | + + | Blood | + + + + + + + | Performing | Address | City/State/Zipcode | Phone Number | | Organization | | | | + + + + + | REFERENCE LAB | [address] [place], [place] [address] | [place] [address] | [phone] | | [facility] | Blvd. | | | | LABORATORY | | | | + + + + + | REFERENCE LAB | [address] [facility] | [place] [address] | | | [facility] | Blvd. | [...] at | | | | | | [facility], [address] | | | | | | [facility] [place] | | | | | | [address] | | | | + + + + + + + + | Specimen | + + | Blood | + + + + + + + | Performing | Address | City/State/Zipcode | Phone Number | | Organization | | | | + + + + + | REFERENCE LAB | [address] [facility] | [place] [address] | [phone] | | [facility] | Blvd. | | | | LABORATORY | | | | + + + + + | REFERENCE LAB | [address] [facility] | [place] [address] | | | [facility] | Blvd. | [...] REFERENCE | | | | performed at TC;[address] | | LAB | | | | [address] | | [facility] | | | | Blvd;[place] [address] | | LABORATORY | | + + + + + + + + | Specimen | + + | Blood | + + + + + + + | Performing | Address | City/State/Zipcode | Phone Number | | Organization | | | | + + + + + | REFERENCE LAB | [address] [place] [address] | [place] [address] | [phone] | | [facility] | Blvd. | | | | LABORATORY | | | | + + + + + | REFERENCE LAB | [address] [place] [address] | [place] [address] | | | [facility] | Blvd. | [...] REFERENCE | | | | performed at [facility];[address] | | LAB | | | | [address] | | [facility] | | | | Blvd;[place] [address] | | LABORATORY | | + + + + + + + + | Specimen | + + | Blood | + + + + + + + | Performing | Address | City/State/Zipcode | Phone Number | | Organization | | | | + + + + + | REFERENCE LAB | [address] [place] [address] | [place] [address] | [phone] | | [facility] | Blvd. | | | | LABORATORY | | | | + + + + + | REFERENCE LAB | [address] [place] [address] | [place] [address] | | | [facility] | Blvd. | [...] | | | | | performed at [facility];[address] | | | | | | [facility] | | | | | | Blvd;[place] [address] | | | | | | | | | | + + + + + + + + | Specimen | + + | Blood | + + + + + + + | Performing | Address | City/State/Zipcode | Phone Number | | Organization | | | | + + + + + | REFERENCE LAB | [address] [facility] [address] | [place] [address] | [phone] | | [facility] | Blvd. | | | | LABORATORY | | | | + + + + + | REFERENCE LAB | [address] [facility] [facility] [address] | [place] [address] | | | [facility] | Blvd. | [...] | | | Absolute | performed at [facility];[address] | [address] | LAB | | | | [place] | | [facility] | | | | Bl[address];[place] [address] | | LABORATORY | | + + + + + + + + | Specimen | + + | Blood | + + + + + + + | Performing | Address | City/State/Zipcode | Phone Number | | Organization | | | | + + + + + | REFERENCE LAB | [address] [facility] | [place] [address] | [phone] | | [facility] | Blvd. | | | | LABORATORY | | | | + + + + + | REFERENCE LAB | [address] | [place] [address] | | | [facility] [facility] | Blvd. | | | | LABORATORY [...]
--- OUTSIDE RECORDS SUMMARY | ~2019-10-07 | XMS | Encounter Summary ---
Demographics + + + | Address | [address] | | | [place] [address] | + + + | Home Phone | | + + + | Preferred Language | Unknown | + + + | Marital Status | | + + + | Episcopal Affiliation | Unknown | + + + | Race | Unknown | + + + | Ethnic Group | Unknown | + + + Author + + + | Author | [facility] | | | and [place] | + + + | Organization | [facility] | | | [...] Team Providers + +------+ + | Care Turnstile Attendant Name | Role | Phone | [...] + + | 06/30/ | Documentati | [facility] | Marcial, | Results (06/26/19) | | 2019 | on | NEPHROLOGY [place] | [facility] | | | | | [address] | [place] [place] | | | | | [address] | | | | | | [place] | | | | | | [address] | | | | | | [phone] | | | +--------+ + + + [...] W | | | | | | [facility] | | | | | | [place] [address] | | | | | | [phone] | | | | | | | | +--------+---------+ + + + | 11/10/ | Office | Nephrology | Cristian Wallace MD | | | 2019 | Visit | | [address] [facility] | | | | | | [address] [place] | | | | | | [address] | | | | | | | [...] 1.005 - 1.030 | | | | [place] | | | | | + [...]
--- OUTSIDE RECORDS SUMMARY | ~2019-10-07 | XMS | Encounter Summary ---
Demographics + + + | Address | [address] | | | [place] [address] | + + + | Home Phone | | + + + | Preferred Language | Unknown | + + + | Marital Status | | + + + | Mandaen Affiliation | Unknown | + + + | Race | Unknown | + + + | Ethnic Group | Unknown | + + + Author + + + | Author | [facility] | | | and [place] | + + + | Organization | [facility] | | | and [...] Team Providers + +------+ + | Care Life Insurance Specialist Name | Role | Phone | + +------+ + | Eric Bhatti DO | PCP | | + +------+ + Reason for Visit +--------+ + | Reason | Comments | +--------+ + | Other | Appointment reminder call | +--------+ + Encounter Details +--------+ + + + + | Date | Type | Department | Care Team | Description | +--------+ + + + + | 09/26/ | Telephone | [facility] | Cristian Wallace MD | Other (Appointment | | 2019 | | NEPHROLOGY [place] | [address] | reminder call ) | | | | [address] | [address] [place], [place] | | | | | [address] | [address] | | | | | [place], [place] | | | | | | [address] | | | | | | [phone] | | | +--------+ + + + [...] 2019 | Visit | | KITTY Hansen [address] | | | | | | [facility] | | | | | | [place] [address] | | | | | | [phone] | | | | | | | | +--------+---------+ + + + | 11/10/ | Office | Nephrology | Cristian Wallace MD | | | 2019 | Visit | | [address] [facility] | | | | | | [address] [facility] [place] | | | | | | [address] | | | | | | | | +--------+---------+ + + + documented as of this encounter Visit Diagnoses Not on filedocumented in this encounter"
--- OUTSIDE RECORDS SUMMARY | ~2019-10-07 | XMS | Encounter Summary ---
Demographics + + + | Address | [address] | | | [place] [address] | + + + | Home Phone | | + + + | Preferred Language | Unknown | + + + | Marital Status | | + + + | Samaritan Affiliation | Unknown | + + + | Race | Unknown | + + + | Ethnic Group | Unknown | + + + Author + + + | Author | [facility] | | | and [place] | + + + | Organization | [facility] | | | and [...] Team Providers + +------+ + | Care Mill Tender Second Operator Name | Role | Phone | [...] + + | 07/30/ | Refill | [facility] | Bianca Cardona | Medication Refill | | 2018 | | [address] | [address] | (HCQ) | | | | [address] | [address] | | | | | [place], [place] | [place] [address] | | | | | [address] | [phone] | | | | | [phone] | | | +--------+--------+ + + + [...] 2018 | Visit | | KITTY Hansen [address] | | | | | | [facility] | | | | | | [place] [address] | | | | | | [phone] | | | | | | | | +--------+---------+ + + + | 11/10/ | Office | Nephrology | Cristian Wallace MD | | | 2020 | Visit | | [address] [facility] [address] | | | | | | [address] [place], [place] | | | | | | [address] | | | | | | | | +--------+---------+ + + + documented as of this encounter Visit Diagnoses Not on filedocumented in this encounter"
--- OUTSIDE RECORDS SUMMARY | ~2019-10-07 | XMS | Encounter Summary ---
Demographics + + + | Address | [address] | | | [place] [address] | + + + | Home Phone | | + + + | Preferred Language | Unknown | + + + | Marital Status | | + + + | Anglican Affiliation | Unknown | + + + | Race | Unknown | + + + | Ethnic Group | Unknown | + + + Author + + + | Author | [facility] | | | and [place] | + + + | Organization | [facility] | | | [...] Team Providers + +------+ + | Care Plastic Sheets Finishing Supervisor Name | Role | Phone | + +------+ + | Eric Bhatti DO | PCP | | + +------+ + Reason for Visit +--------+ + | Reason | Comments | +--------+ + | Other | Appointmet reminder call | +--------+ + Encounter Details +--------+ + + + + | Date | Type | Department | Care Team | Description | +--------+ + + + + | 06/25/ | Telephone | [facility] | Cristian Wallace MD | Other (Appointmet | | 2019 | | NEPHROLOGY [place] | [address] | reminder call) | | | | [address] | [address] [place], [place] | | | | | [address] [place], [place] | [address] | | | | | [address] | | | | | | [phone] | | | +--------+ + + + [...] | | | | | [place] [address] | | | | | | [phone] | | | | | | | | +--------+---------+ + + + | 11/10/ | Office | Nephrology | Cristian Wallace MD | | | 2020 | Visit | | [address] [facility] | | | | | | [address] [place] | | | | | | [address] | | | | | | | | +--------+---------+ + + + documented as of this encounter Visit Diagnoses Not on filedocumented in this encounter"
--- OUTSIDE RECORDS SUMMARY | ~2019-10-07 | XMS | Encounter Summary ---
Demographics + + + | Address | [address] | | | [place] [address] | + + + | Home Phone | | + + + | Preferred Language | Unknown | + + + | Marital Status | | + + + | Jainism Affiliation | Unknown | + + + | Race | Unknown | + + + | Ethnic Group | Unknown | + + + Author + + + | Author | [facility] | | | and [place] | + + + | Organization | [facility] | | | [...] Team Providers + +------+ + | Care Desolderer Name | Role | Phone | + +------+ + | Eric Bhatti DO | PCP | | + +------+ + Encounter Details +--------+ + + + + | Date | Type | Department | Care Team | Description | +--------+ + + + + | 06/24/ | Orders Only | [facility] | Cristian Wallace MD | Proteinuria, | | 2018 | | NEPHROLOGY POMEROY | [address] | unspecified type | | | | [address] | [address] [place], [place] | (Primary Dx); Lupus | | | | [address] [place], [place] | [address] | nephritis (HCC) | | | | [address] | | | | | | [phone] | | | +--------+ + + + [...] | | | | | | [address] [facility] | | | | | | [place] [address] | | | | | | [phone] | | | | | | | | +--------+---------+ + + + | 11/10/ | Office | Nephrology | Cristian Wallace MD | | | 2019 | Visit | | [address] [facility] | | | | | | [address] [place] | | | | | | [address] | | | | | | | [...]
--- OUTSIDE RECORDS SUMMARY | ~2019-10-07 | XMS | Encounter Summary ---
Demographics + + + | Address | [address] | | | [place] [address] | + + + | Home Phone | | + + + | Preferred Language | Unknown | + + + | Marital Status | | + + + | Denominational Affiliation | Unknown | + + + | Race | Unknown | + + + | Ethnic Group | Unknown | + + + Author + + + | Author | [facility] | | | and [place] | + + + | Organization | [facility] | | | and [...] Team Providers + +------+ + | Care Language Pathologist Name | Role | Phone | + +------+ + | Eric Bhatti DO | PCP | | + +------+ + Reason for Visit +---------+ + | Reason | Comments | +---------+ + | Results | 10/01/19 | +---------+ + Encounter Details +--------+ + + + + | Date | Type | Department | Care Team | Description | +--------+ + + + + | 10/06/ | Documentati | [facility] | Marcial, | Results (10/01/19) | | 2019 | on | NEPHROLOGY [place] | [facility] | | | | | [address] | [address]s [address] | | | | | [address] | | | | | | [place], [place] | | | | | | [address] | | | | | | [phone] | | | +--------+ + + + [...] 2018 | Visit | | KITTY Hansen [address] | | | | | | [facility] | | | | | | [place] [address] | | | | | | [phone] | | | | | | | | +--------+---------+ + + + | 11/10/ | Office | Nephrology | Cristian Wallace MD | | | 2019 | Visit | | [address] [facility] | | | | | | [address] [place] | | | | | | [address] | | | | | | | [...] + + documented in this encounter Results Culture, Urine (10/01/2019) + + + + [...] 1.001 - 1.030 | | | | [place] | | | | | + + [...] + + | Urine | + + CBC with Manual Differential (10/01/2019) + + [...] Blood | + + Basic Metabolic Panel (10/01/2019) [...]
--- OUTSIDE RECORDS SUMMARY | ~2019-10-07 | XMS | Encounter Summary ---
Demographics + + + | Address | [address] | | | [place] [address] | + + + | Home Phone | | + + + | Preferred Language | Unknown | + + + | Marital Status | | + + + | Christianity Affiliation | Unknown | + + + | Race | Unknown | + + + | Ethnic Group | Unknown | + + + Author + + + | Author | [facility] | | | and [place] | + + + | Organization | [facility] | | | [...] Team Providers + +------+ + | Care Warehouse Assembly Worker Name | Role | Phone | + [...] + + | 08/20/ | Telephone | [facility] | Tracie Brizuela, | Pain | | 2019 | | RHEUMATOLOGY [address] | [address] | | | | | [address] | | | | | | [place] | | | | | | [address] | | | | | | [phone] | | | +--------+ + + + [...] W | | | | | | [facility] | | | | | | [place] [address] | | | | | | [phone] | | | | | | | | +--------+---------+ + + + | 11/10/ | Office | Nephrology | Cristian Wallace MD | | | 2019 | Visit | | [address] [facility] | | | | | | [address] [place] | | | | | | [address] | | | | | | | | +--------+---------+ + + + documented as of this encounter Visit Diagnoses Not on filedocumented in this encounter"
--- OUTSIDE RECORDS SUMMARY | ~2019-10-07 | XMS | Encounter Summary ---
Demographics + + + | Address | [address] | | | [place] [address] | + + + | Home Phone | | + + + | Preferred Language | Unknown | + + + | Marital Status | | + + + | Buddhism Affiliation | Unknown | + + + | Race | Unknown | + + + | Ethnic Group | Unknown | + + + Author + + + | Author | [facility] | | | and [place] | + + + | Organization | [facility] | | | [...] Team Providers + +------+ + | Care Public Relations Name | Role | Phone | + +------+ + | Eric Bhatti DO | PCP | | + +------+ + Encounter Details +--------+ + + + + | Date | Type | Department | Care Team | Description | +--------+ + + + + | 07/21/ | Orders Only | [facility] | Jj Harirs, | SLE | | 2019 | | [address] | Jewel Bearing Turner | glomerulonephritis | | | | [place] | | syndrome (HCC) | | | | [address] | | | | | | [phone] | | | +--------+ + + + [...] | | | | | [place] [address] | | | | | | [phone] | | | | | | | | +--------+---------+ + + + | 11/10/ | Office | Nephrology | Cristian Wallace MD | | | 2019 | Visit | | [address] [facility] | | | | | | [address] [place] | | | | | | [address] | | | | | | | [...] | | | | PDT | syndrome ([facility]) | results section. | + +--------+ + + + | CCP ANTIBODIES, IGG | Routin | 07/21/2019 | SLE | Results for this | | IGA | e | 3:01 PM | glomerulonephritis | procedure are in the | | | | PDT | syndrome ([facility]) | results section. | + +--------+ + + + | MARCO, IFA | Routin | 07/21/2019 | SLE | Results for this | | | e | 3:01 PM | glomerulonephritis | procedure are in the | | | | PDT | syndrome ([facility]) | results section. | + +--------+ + [...] | | | | PDT | syndrome ([facility]) | results section. | + +--------+ + + + | HEPATITIS C AB | Routin | 07/21/2019 | SLE | Results for this | | | e | 3:01 PM | glomerulonephritis | procedure are in the | | | | PDT | syndrome ([facility]) | results section. | + +--------+ + + + | CISSE AB, IGG | Routin | 07/21/2019 | SLE | Results for this | | | e | 3:01 PM | glomerulonephritis | procedure are in the | | | | PDT | syndrome ([facility]) | results section. | + +--------+ + [...] | | | | PDT | syndrome ([facility]) | results section. | + +--------+ + + + documented in this encounter Results KETTY+DSDNA+Antich+Centro+FA (07/21/2019 3:01 PM PDT) + + [...] | | | | | | Sm, PATIENT INTAKE COORDINATOR, SCL-70, | | | | | | [...] Dot | | | | | | Sp100,[id number]-[id number] | | | | | | Primary [...] + + + + + + | PATIENT INTAKE COORDINATOR | 0.4 | 0.0 - 0.9 AI [...] | | | | | | | ---------PATIENT INTAKE COORDINATOR | | | | | | | [...] | | | | | | at [facility], [address] | | | | | | [place] | | | | | | [address] | | | | + + + + + + + + | Specimen | + + | | + + + + + + + | Performing | Address | City/State/Zipcode | Phone Number | | Organization | | | | + + + + + | REFERENCE LAB | [address] [facility] | [place] [address] | [phone] | | [facility] | Bl[address] | | | | LABORATORY | | | | + + + + + | REFERENCE LAB | [address] [facility] | [place] [address] | | | [facility] | Bl[address] | [...] | | | | | | Sm, PATIENT INTAKE COORDINATOR, SCL-70, | | | | | | [...] Dot | | | | | | Sp100,f66-xwfnhn | | | | | | Primary [...] | | | | | | at [facility], [address] | | | | | | [address], [place] | | | | | | [address] | | | | + + + + + + + + | Specimen | + + | | + + + + + + + | Performing | Address | City/State/Zipcode | Phone Number | | Organization | | | | + + + + + | REFERENCE LAB | [address] [place] [address] | [place] [address] | [phone] | | [facility] | Blvd[address] | | | | LABORATORY | | | | + + + + + | REFERENCE LAB | [address] [place] [address] | [place] [address] | | | [facility] | Blvd[address] | [...] | | | Absolute | performed at [facility];[address] | K/uL | LAB | | | | [facility] | | [facility] | | | | Bl[address];[place] [address] | | LABORATORY | | + + + + + + + + | Specimen | + + | Blood | + + + + + + + | Performing | Address | City/State/Zipcode | Phone Number | | Organization | | | | + + + + + | REFERENCE LAB | [address] [place] [address] | [place] [address] | [phone] | | [facility] | Blvd. | | | | LABORATORY | | | | + + + + + | REFERENCE LAB | [address] [place] [address] | [place] [address] | | | [facility] | Blvd. | [...] | | | | | | MDRD IDRI traceable | | | | | | equation.Testing | | | | | | performed at [facility];[address] | | | | | | [facility] | | | | | | [facility] [address] | | | | | | | | | | + + + + + + + + | Specimen | + + | Blood | + + + + + + + | Performing | Address | City/State/Zipcode | Phone Number | | Organization | | | | + + + + + | REFERENCE LAB | [address] [place] [address] | [place] [address] | [phone] | | [facility] | Blvd. | | | | LABORATORY | | | | + + + + + | REFERENCE LAB | [address] [place] [address] | [place] [address] | | | [facility] | Blvd. | [...] REFERENCE | | | | performed at [facility];[address] | | LAB | | | | [place] | | [facility] | | | | Blvd;[place] [address] | | LABORATORY | | + + + + + + + + | Specimen | + + | Blood | + + + + + + + | Performing | Address | City/State/Zipcode | Phone Number | | Organization | | | | + + + + + | REFERENCE LAB | [address] [facility] | [place] [address] | [phone] | | [facility] | Blvd[address] | | | | LABORATORY | | | | + + + + + | REFERENCE LAB | [address] [facility] | [place] [address] | | | [facility] | Blvd. | [...] REFERENCE | | | | performed at [facility];[address] | | LAB | | | | [place] | | [facility] | | | | Blvd;[place] [address] | | LABORATORY | | + + + + + + + + | Specimen | + + | Blood | + + + + + + + | Performing | Address | City/State/Zipcode | Phone Number | | Organization | | | | + + + + + | REFERENCE LAB | [address] [place] [address] | [place] [address] | [phone] | | [facility] | Blvd[address] | | | | LABORATORY | | | | + + + + + | REFERENCE LAB | [address] [place] [address] | [place] [address] | | | [facility] | Blvd. | [...] [place] | | | | | | [address] | | | | + + + + + + + + | Specimen | + + | Blood | + + + + + + + | Performing | Address | City/State/Zipcode | Phone Number | | Organization | | | | + + + + + | REFERENCE LAB | [address] [place] [address] | [place] [id number] | [phone] | | [facility] | Blvd[address] | | | | LABORATORY | | | | + + + + + | REFERENCE LAB | [address] [place] [address] | [place] [address] | | | [facility] | Blvd. | [...] | | | | | performed at [facility], [address] | | | | | | [place] | | | | | | [place] [address] | | | | + + + + + + + + | Specimen | + + | Blood | + + + + + + + | Performing | Address | City/State/Zipcode | Phone Number | | Organization | | | | + + + + + | REFERENCE LAB | [address] [facility] | [place] [address] | [phone] | | [facility] | Blvd[address] | | | | LABORATORY | | | | + + + + + | REFERENCE LAB | [address] [facility] | [place] [address] | | | [facility] | Blvd. | [...] | | | ANTIBODY | performed at [facility], [address] | | LAB | | | | [facility] | | [facility] | | | | [place] [address] | | LABORATORY | | + + + + + + + + | Specimen | + + | Blood | + + + + + + + | Performing | Address | City/State/Zipcode | Phone Number | | Organization | | | | + + + + + | REFERENCE LAB | [address] [place] [address] | [place] [address] | [phone] | | [facility] | Blvd. | | | | LABORATORY | | | | + + + + + | REFERENCE LAB | [address] [place] [address] | [place] [address] | | | [facility] | Blvd. | [...] | | | COMPLEMENT | performed at [facility];[address] | | LAB | | | | [place] | | [facility] | | | | Blvd;[place] [address] | | LABORATORY | | + + + + + + + + | Specimen | + + | Blood | + + + + + + + | Performing | Address | City/State/Zipcode | Phone Number | | Organization | | | | + + + + + | REFERENCE LAB | [address] [place] [address] | [place] [address] | [phone] | | [facility] | Blvd. | | | | LABORATORY | | | | + + + + + | REFERENCE LAB | [address] [place] [address] | [place] [address] | | | [facility] | Blvd. | [...] | | | | | | at [facility], [address] | | | | | | [place] | | | | | | [address] | | | | + + + + + + + + | Specimen | + + | Blood | + + + + + + + | Performing | Address | City/State/Zipcode | Phone Number | | Organization | | | | + + + + + | REFERENCE LAB | [address] [facility] | [place] [address] | [phone] | | [facility] | Blvd. | | | | LABORATORY | | | | + + + + + | REFERENCE LAB | [address] [facility] [facility] | [place] [address] | | | [facility] | Blvd. | [...] | | | | | performed at [facility];[address] | | | | | | [facility] | | | | | | Blvd;[place] [address] | | | | | | | | | | + + + + + + + + | Specimen | + + | Blood | + + + + + + + | Performing | Address | City/State/Zipcode | Phone Number | | Organization | | | | + + + + + | REFERENCE LAB | [address] [facility] [facility] | [place] [address] | [phone] | | [facility] | Blvd. | | | | LABORATORY | | | | + + + + + | REFERENCE LAB | [address] [facility] | [place] [address] | | | [facility] | Blvd. | [...] | | LAB | | | | TCL;[address] [place] [address] | | [facility] | | | | Blvd;[place] [address] | | LABORATORY | | + + + + + + + + | Specimen | + + | Blood | + + + + + + + | Performing | Address | City/State/Zipcode | Phone Number | | Organization | | | | + + + + + | REFERENCE LAB | [address] [facility] [facility] | [place] [address] | [phone] | | [facility] | Blvd[address] | | | | LABORATORY | | | | + + + + + | REFERENCE LAB | [address] [facility] | [place] [address] | | | [facility] | Blvd. | [...] LAB | | | Total | TCL;[address] [facility] | | [facility] | | | | Blvd;[place] [address] | | LABORATORY | | + + + + + + + + | Specimen | + + | Blood | + + + + + + + | Performing | Address | City/State/Zipcode | Phone Number | | Organization | | | | + + + + + | REFERENCE LAB | [address] [place] [address] | [place] [address] | [phone] | | [facility] | Blvd. | | | | LABORATORY | | | | + + + + + | REFERENCE LAB | [address] [place] [address] | [place] [address] | | | [facility] | Blvd. | [...] | | | | | validated by [facility] | | | | | | Diagnostics, [...] by | | | | | | [employer] [facility] | | | | | | [employer]Borderline/Equivocal | | | | | | RF results warrant | | | | | | redraw and retestingto | | | | | | confirm.Testing | | | | | | performed at [facility] | | | | | | [facility], [address] | | | | | | [facility] | | | | | | [address],[place], [place] | | | | | | [phone]. | | | | + + + + + + + + | Specimen | + + | Blood | + + + + + + + | Performing | Address | City/State/Zipcode | Phone Number | | Organization | | | | + + + + + | REFERENCE LAB | [address] [place] [address] | [place] [address] | [phone] | | [facility] | Blvd. | | | | LABORATORY | | | | + + + + + | REFERENCE LAB | [address] [facility] [facility] | [place] [address] | | | [facility] | Blvd. | [...] | | | | | | by [facility], [address] | | | | | | [place] | | | | | | [address] | | | | + + + + + + + + | Specimen | + + | Blood | + + + + + + + | Performing | Address | City/State/Zipcode | Phone Number | | Organization | | | | + + + + + | REFERENCE LAB | [address] [place] [address] | [place] [address] | [phone] | | [facility] | Blvd. | | | | LABORATORY | | | | + + + + + | REFERENCE LAB | [address] [place] [address] | [place] [address] | | | [facility] | Blvd. | | | | LABORATORY | | | | + + + + + documented in this encounter Visit Diagnoses + + | Diagnosis | + + | SLE glomerulonephritis syndrome (HCC) Systemic lupus erythematosus | + + documented in this encounter"
--- OUTSIDE RECORDS SUMMARY | ~2019-10-07 | XMS | Clinical Summary ---
Demographics + + + | Address | [address] | | | [place] [address] | + + + | Home Phone | | + + + | Preferred Language | Unknown | + + + | Marital Status | Single | + + + | Samaritan Affiliation | Unknown | + + + | Race | Unknown | + + + | Ethnic Group | Unknown | + + + Author + + + | Author | [facility] (Historical as of | | | 06-21-19) | + + + | Organization | [facility] (Historical as of | | | 06-21-19) [...] Team Providers + +------+ + | Care Construction Scheduler Name | Role | Phone | + [...] +---------+--------+ +------+-------+---------+ | [place] | BLUE | [id number] | | | | | | CROSS [...] | Self | [birth year] | Home: | [address] [place] [address] [address] | | [place] | [address] | | 1995 | [phone] | [address] [place] | | | mar[place] | | | [phone] | [phone] | + +--------+ +--------+ + +"
--- OUTSIDE RECORDS SUMMARY | ~2019-10-07 | XMS | Encounter Summary ---
Demographics + + + | Address | [address] | | | [place] [address] | + + + | Home Phone | | + + + | Preferred Language | Unknown | + + + | Marital Status | | + + + | Baptism Affiliation | Unknown | + + + | Race | Unknown | + + + | Ethnic Group | Unknown | + + + Author + + + | Author | [facility] | | | and [place] | + + + | Organization | [facility] | | | [...] Team Providers + +------+ + | Care Can Handler Name | Role | Phone | + +------+ + | Eric Bhatti DO | PCP | | + +------+ + Encounter Details +--------+---------+ + + + | Date | Type | Department | Care Team | Description | +--------+---------+ + + + | 10/06/ | Office | [facility] | Cristian Wallace MD | SLE | | 2019 | Visit | NEPHROLOGY [place] | [address] [facility] [address] | glomerulonephritis | | | | [address] | [address] [place], [place] | syndrome (HCC) | | | | [address] | [address] | (Primary Dx); | | | | [place], [place] | | Systemic lupus | | | | [address] | | erythematosus 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 I [...] 2018 | Visit | | [place] [address] | | | | | | [facility] | | | | | | [place] [address] | | | | | | [phone] | | | | | | | | +--------+---------+ + + + | 11/10/ | Office | Nephrology | Cristian Wallace MD | | | 2019 | Visit | | [address] [facility] | | | | | | [address] [place], [place] | | | | | | [address] | | | | | | | [...]
--- OUTSIDE RECORDS SUMMARY | ~2019-10-07 | XMS | Encounter Summary ---
Demographics + + + | Address | [address] | | | [place] [address] | + + + | Home Phone | | + + + | Preferred Language | Unknown | + + + | Marital Status | | + + + | Roman Catholic Affiliation | Unknown | + + + | Race | Unknown | + + + | Ethnic Group | Unknown | + + + Author + + + | Author | [facility] | | | and [place] | + + + | Organization | [facility] | | | [...] Team Providers + +------+ + | Care Bridal Sales Consultant Name | Role | Phone | + +------+ + | Eric Bhatti DO | PCP | | + +------+ + Encounter Details +--------+ + + + + | Date | Type | Department | Care Team | Description | +--------+ + + + + | 07/21/ | Orders Only | [facility] | Jj Harris, | SLE | | 2019 | | [address] | Big Data Admin | glomerulonephritis | | | | [place] | | syndrome (HCC) | | | | [address] | | | | | | [phone] | | | +--------+ + + + [...] | | | | | | [facility] | | | | | | [place] [address] | | | | | | [phone] | | | | | | | | +--------+---------+ + + + | 11/10/ | Office | Nephrology | Cristian Wallace MD | | | 2019 | Visit | | [address] [facility] | | | | | | [address] [place] | | | | | | [address] | | | | | | | [...] | | | | PDT | syndrome ([facility]) | results section. | + +--------+ + + + | CCP ANTIBODIES, IGG | Routin | 07/21/2019 | SLE | Results for this | | IGA | e | 3:01 PM | glomerulonephritis | procedure are in the | | | | PDT | syndrome ([facility]) | results section. | + +--------+ + + + | MARCO, IFA | Routin | 07/21/2019 | SLE | Results for this | | | e | 3:01 PM | glomerulonephritis | procedure are in the | | | | PDT | syndrome ([facility]) | results section. | + +--------+ [...] | | | | PDT | syndrome ([facility]) | results section. | + +--------+ + + + | HEPATITIS C AB | Routin | 07/21/2019 | SLE | Results for this | | | e | 3:01 PM | glomerulonephritis | procedure are in the | | | | PDT | syndrome ([facility]) | results section. | + +--------+ + + + | CISSE AB, IGG | Routin | 07/21/2019 | SLE | Results for this | | | e | 3:01 PM | glomerulonephritis | procedure are in the | | | | PDT | syndrome ([facility]) | results section. | + +--------+ [...] | | | | PDT | syndrome ([facility]) | results section. | + +--------+ [...] | | | | | | Sm, FINANCIAL SERVICES DIRECTOR, SCL-70, | | | | | | [...] Dot | | | | | | [id number] | | | | | | Primary [...] + + + + + + | FINANCIAL SERVICES DIRECTOR | 0.4 | 0.0 - 0.9 AI [...] | | | | | | | ---------FINANCIAL SERVICES DIRECTOR | | | | | | | [...] | | | | | | at [facility], [address] | | | | | | [place] | | | | | | [address] | | | | + + + + + + + + | Specimen | + + | | + + + + + + + | Performing | Address | City/State/Zipcode | Phone Number | | Organization | | | | + + + + + | REFERENCE LAB | [address] | [place] [address] | [phone] | | [facility] | Bl[address] | | | | LABORATORY | | | | + + + + + | REFERENCE LAB | [address] | [place] [address] | | | [facility] | Bl[address] | [...] | | | | | | Sm, FINANCIAL SERVICES DIRECTOR, SCL-70, | | | | | | [...] Dot | | | | | | Sp100,[id number] | | | | | | Primary [...] | | | | | | at [facility], [address] | | | | | | [address], [place] | | | | | | [address] | | | | + + + + + + + + | Specimen | + + | | + + + + + + + | Performing | Address | City/State/Zipcode | Phone Number | | Organization | | | | + + + + + | REFERENCE LAB | [address] [place] [address] | [place] [address] | [phone] | | [facility] | Blvd[address] | | | | LABORATORY | | | | + + + + + | REFERENCE LAB | [address] [place] [address] | [place] [address] | | | [facility] | Blvd. | [...] | | | Absolute | performed at [facility];[address] | K/uL | LAB | | | | [facility] | | [facility] | | | | Blvd;[place] [address] | | LABORATORY | | + + + + + + + + | Specimen | + + | Blood | + + + + + + + | Performing | Address | City/State/Zipcode | Phone Number | | Organization | | | | + + + + + | REFERENCE LAB | [address] [place] [address] | [place] [address] | [phone] | | [facility] | Blvd. | | | | LABORATORY | | | | + + + + + | REFERENCE LAB | [address] [place] [address] | [place] [address] | | | [facility] | Blvd. | [...] | | | | | | MDRD IDKS traceable | | | | | | equation.Testing | | | | | | performed at [facility];[address] | | | | | | [facility] | | | | | | [facility];[place] [address] | | | | | | | | | | + + + + + + + + | Specimen | + + | Blood | + + + + + + + | Performing | Address | City/State/Zipcode | Phone Number | | Organization | | | | + + + + + | REFERENCE LAB | [address] [place] [address] | [place] [address] | [phone] | | [facility] | Blvd. | | | | LABORATORY | | | | + + + + + | REFERENCE LAB | [address] [place] [address] | [place] [address] | | | [facility] | Blvd. | [...] REFERENCE | | | | performed at [facility];[address] | | LAB | | | | [place] | | [facility] | | | | Blvd;[place] [address] | | LABORATORY | | + + + + + + + + | Specimen | + + | Blood | + + + + + + + | Performing | Address | City/State/Zipcode | Phone Number | | Organization | | | | + + + + + | REFERENCE LAB | [address] | [place] [address] | [phone] | | [facility] | Blvd. | | | | LABORATORY | | | | + + + + + | REFERENCE LAB | [address] | [place] [address] | | | [facility] | Blvd. | [...] REFERENCE | | | | performed at [facility];[address] | | LAB | | | | [place] | | [facility] | | | | Blvd;[place] [address] | | LABORATORY | | + + + + + + + + | Specimen | + + | Blood | + + + + + + + | Performing | Address | City/State/Zipcode | Phone Number | | Organization | | | | + + + + + | REFERENCE LAB | [address] [place] [address] | [place] [address] | [phone] | | [facility] | Blvd. | | | | LABORATORY | | | | + + + + + | REFERENCE LAB | [address] [place] [address] | [place] [address] | | | [facility] | Blvd. | [...] [place] | | | | | | [address] | | | | + + + + + + + + | Specimen | + + | Blood | + + + + + + + | Performing | Address | City/State/Zipcode | Phone Number | | Organization | | | | + + + + + | REFERENCE LAB | [address] [place] [address] | [place] [id number] | [phone] | | [facility] | Blvd. | | | | LABORATORY | | | | + + + + + | REFERENCE LAB | [address] [place] [address] | [place] [address] | | | [facility] | Blvd. | [...] | | | | | performed at [facility], [address] | | | | | | [place] | | | | | | [place] [address] | | | | + + + + + + + + | Specimen | + + | Blood | + + + + + + + | Performing | Address | City/State/Zipcode | Phone Number | | Organization | | | | + + + + + | REFERENCE LAB | [address] | [place] [address] | [phone] | | [facility] | Blvd. | | | | LABORATORY | | | | + + + + + | REFERENCE LAB | [address] | [place] [address] | | | [facility] | Blvd. | [...] | | | ANTIBODY | performed at [facility], [address] | | LAB | | | | [facility] | | [facility] | | | | [place] [address] | | LABORATORY | | + + + + + + + + | Specimen | + + | Blood | + + + + + + + | Performing | Address | City/State/Zipcode | Phone Number | | Organization | | | | + + + + + | REFERENCE LAB | [address] [place] [address] | [place] [address] | [phone] | | [facility] | Blvd. | | | | LABORATORY | | | | + + + + + | REFERENCE LAB | [address] [place] [address] | [place] [address] | | | [facility] | Blvd. | [...] | | | COMPLEMENT | performed at [facility];[address] | | LAB | | | | [place] | | [facility] | | | | Blvd;[place] [address] | | LABORATORY | | + + + + + + + + | Specimen | + + | Blood | + + + + + + + | Performing | Address | City/State/Zipcode | Phone Number | | Organization | | | | + + + + + | REFERENCE LAB | [address] [place] [address] | [place] [address] | [phone] | | [facility] | Blvd. | | | | LABORATORY | | | | + + + + + | REFERENCE LAB | [address] [place] [address] | [place] [address] | | | [facility] | Blvd. | [...] | | | | | | at [facility], [address] | | | | | | [place] | | | | | | [address] | | | | + + + + + + + + | Specimen | + + | Blood | + + + + + + + | Performing | Address | City/State/Zipcode | Phone Number | | Organization | | | | + + + + + | REFERENCE LAB | [address] | [place] [address] | [phone] | | [facility] | Blvd. | | | | LABORATORY | | | | + + + + + | REFERENCE LAB | [address] | [place] [address] | | | [facility] | Blvd. | [...] | | | | | performed at [facility];[address] | | | | | | [facility] | | | | | | Blvd;[place] [address] | | | | | | | | | | + + + + + + + + | Specimen | + + | Blood | + + + + + + + | Performing | Address | City/State/Zipcode | Phone Number | | Organization | | | | + + + + + | REFERENCE LAB | [address] | [place] [address] | [phone] | | [facility] | Blvd. | | | | LABORATORY | | | | + + + + + | REFERENCE LAB | [address] | [place] [address] | | | [facility] | Blvd. | [...] | | LAB | | | | TCL;[address] [place] [address] | | [facility] | | | | Blvd;[place] [address] | | LABORATORY | | + + + + + + + + | Specimen | + + | Blood | + + + + + + + | Performing | Address | City/State/Zipcode | Phone Number | | Organization | | | | + + + + + | REFERENCE LAB | [address] | [place] [address] | [phone] | | [facility] | Blvd. | | | | LABORATORY | | | | + + + + + | REFERENCE LAB | [address] | [place] [address] | | | [facility] | Blvd. | [...] | | | Total | TCL;[address] [facility] | | [facility] | | | | Blvd;[place] [address] | | LABORATORY | | + + + + + + + + | Specimen | + + | Blood | + + + + + + + | Performing | Address | City/State/Zipcode | Phone Number | | Organization | | | | + + + + + | REFERENCE LAB | [address] [place] [address] | [place] [address] | [phone] | | [facility] | Blvd. | | | | LABORATORY | | | | + + + + + | REFERENCE LAB | [address] [place] [address] | [place] [address] | | | [facility] | Blvd. | [...] | | | | | validated by [facility] | | | | | | [...] | | | | | performed at [facility] | | | | | | [employer], [address] | | | | | | [facility] | | | | | | [address],[place], [place] | | | | | | [address]. | | | | + + + + + + + + | Specimen | + + | Blood | + + + + + + + | Performing | Address | City/State/Zipcode | Phone Number | | Organization | | | | + + + + + | REFERENCE LAB | [address] [place] [address] | [place] [address] | [phone] | | [facility] | Blvd. | | | | LABORATORY | | | | + + + + + | REFERENCE LAB | [address] | [place] [address] | | | [facility] | Blvd. | [...] | | | | | | by [facility], [address] | | | | | | [place] | | | | | | [address] | | | | + + + + + + + + | Specimen | + + | Blood | + + + + + + + | Performing | Address | City/State/Zipcode | Phone Number | | Organization | | | | + + + + + | REFERENCE LAB | [address] [place] [address] | [place] [address] | [phone] | | [facility] | Blvd. | | | | LABORATORY | | | | + + + + + | REFERENCE LAB | [address] [place] [address] | [place] [address] | | | [facility] | Blvd. | | | | LABORATORY | | | | + + + + + documented in this encounter Visit Diagnoses + + | Diagnosis | + + | SLE glomerulonephritis syndrome (HCC) Systemic lupus erythematosus | + + documented in this encounter"
--- OUTSIDE RECORDS SUMMARY | ~2019-10-07 | XMS | Encounter Summary ---
Demographics + + + | Address | [address] | | | [place] [address] | + + + | Home Phone | | + + + | Preferred Language | Unknown | + + + | Marital Status | | + + + | Latter-Day Affiliation | Unknown | + + + | Race | Unknown | + + + | Ethnic Group | Unknown | + + + Author + + + | Author | [facility] | | | and [place] | + + + | Organization | [facility] | | | [...] Team Providers + +------+ + | Care President [employer] Name | Role | Phone | + [...] | | | | | erythematosu | [place], | [address] | | | | | s ([facility]) | [place] | Phone: | | | | | | [address] | [phone] | | | | | | Phone: | Fax: | | | | | | [phone] | [phone] | | | | | | Fax: | | | | | | | [phone] | | +--------+--------+ + + + + Encounter Details +--------+---------+ + + + | Date | Type | Department | Care Team | Description | +--------+---------+ + + + | 06/30/ | Office | [facility] | Cristian Wallace MD | Lupus nephritis, | | 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 | | | | [address] | [address] [place], [place] | ([facility]); Persistent | | | | [address] | [id number] | proteinuria; | | | | [place], [place] | | Microscopic | | | | [address] | | hematuria; Other | | | | [phone] | | neutropenia ([facility]) | +--------+---------+ + + + [...] sun DEXA SCAN: No need now (no intermediate steroid use) COLONOSCOPY: N/A now DENTIST: every 6 months TREE PULLER/MAMMOGRAM: yearly Also: I decreased her Myfortic to [...] She has history of lupus nephritis and 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 Truly yours, Cristian Wallace MD [facility] documented in this enco unter Plan of Treatment +--------+---------+ + + + | Date | Type | Specialty | Care Team | Description | +--------+---------+ + + + | 10/20/ | Office | Rheumatology | Genevieve Hudson | | | 2018 | Visit | | [address] [address] | | | | | | [facility] | | | | | | [place] [address] | | | | | | [phone] | | | | | | | | +--------+---------+ + + + | 11/10/ | Office | Nephrology | Cristian Wallace MD | | | 2019 | Visit | | [address] [facility] | | | | | | [address] [place] | | | | | | [address] | | | | | | | [...]
--- OUTSIDE RECORDS SUMMARY | ~2019-10-07 | XMS | Encounter Summary ---
Demographics + + + | Address | [address] | | | [place] [address] | + + + | Home Phone | | + + + | Preferred Language | Unknown | + + + | Marital Status | | + + + | Sabianist Affiliation | Unknown | + + + | Race | Unknown | + + + | Ethnic Group | Unknown | + + + Author + + + | Author | [facility] | | | and [place] | + + + | Organization | [facility] | | [...] Team Providers + +------+ + | Care Shop Director Name | Role | Phone | + [...] + + | 08/20/ | Telephone | [facility] | Marcial, | Other (Urine | | 2019 | | NEPHROLOGY [place] | Zara Waterman | concerns) | | | | [address] [place] | Branch Library Clerk | | | | | [address] [place], [place] | | | | | | [address] | | | | | | [phone] | | | +--------+ + + + [...] 2018 | Visit | | KITTY [place] [address] | | | | | | [facility] | | | | | | [place] [address] | | | | | | [phone] | | | | | | | | +--------+---------+ + + + | 11/10/ | Office | Nephrology | Cristian Wallace MD | | | 2019 | Visit | | [address] [facility] | | | | | | [address] [place] | | | | | | [address] | | | | | | | | +--------+---------+ + + + documented as of this encounter Visit Diagnoses Not on filedocumented in this encounter"
--- OUTSIDE RECORDS SUMMARY | ~2019-10-07 | XMS | Encounter Summary ---
Demographics + + + | Address | [address] | | | [place] [address] | + + + | Home Phone | | + + + | Preferred Language | Unknown | + + + | Marital Status | | + + + | Scientologist Affiliation | Unknown | + + + | Race | Unknown | + + + | Ethnic Group | Unknown | + + + Author + + + | Author | [facility] | | | and [place] | + + + | Organization | [facility] | | | [...] Team Providers + +------+ + | Care Wet End Supervisor Name | Role | Phone | [...] + + | 06/25/ | Telephone | [facility] | Cristian Wallace MD | Other (Appointmet | | 2019 | | NEPHROLOGY [place] | [address] [place] | reminder call) | | | | [address] [place] | [address] [place], [place] | | | | | [address] [place], [place] | [address] | | | | | [address] | | | | | | [phone] | | | +--------+ + + + [...] | | | | | [place] [address] | | | | | | [phone] | | | | | | | | +--------+---------+ + + + | 11/10/ | Office | Nephrology | Cristian Wallace MD | | | 2020 | Visit | | [address] [facility] | | | | | | [address] [place] | | | | | | [address] | | | | | | | | +--------+---------+ + + + documented as of this encounter Visit Diagnoses Not on filedocumented in this encounter"
--- OUTSIDE RECORDS SUMMARY | ~2019-10-07 | XMS | Encounter Summary ---
Demographics + + + | Address | [address] | | | [place] [address] | + + + | Home Phone | | + + + | Preferred Language | Unknown | + + + | Marital Status | | + + + | Nondenominational Affiliation | Unknown | + + + [...] Team Providers + +------+ + | Care Wire Harness Assembler Name | Role | Phone | + +------+ + | Eric Bhatti DO | PCP | | + +------+ + Encounter Details +--------+ + + + + | Date | Type | Department | Care Team | Description | +--------+ + + + + | 10/06/ | Orders Only | [facility] | Cristian Wallace MD | SLE | | 2019 | | NEPHROLOGY [place] | [address] [place] | glomerulonephritis | | | | [address] | [address] [place], [place] | syndrome (HCC) | | | | [address] | [address] | (Primary Dx); | | | | [place], [place] | | Systemic lupus | | | | [address] | | erythematosus with | | | | [phone] | | tubulo-interstitial | | | | | | nephropathy, | | | | | | unspecified SLE type | | | | | | (HCC); Persistent | | | | | | proteinuria | +--------+ + + + + Social [...] 2019 | Visit | | KITTY Hansen [address] | | | | | | [facility] | | | | | | [place] [address] | | | | | | [phone] | | | | | | | | +--------+---------+ + + + | 11/10/ | Office | Nephrology | Cristian Wallace MD | | | 2019 | Visit | | [address] [facility] | | | | | | [address] [place] | | | | | | [address] | | | | | | | | +--------+---------+ + + + + +------+--------+ + + | Name | Type | Priori | Associated Diagnoses | Order Schedule | | | | ty | | | + +------+--------+ + + | C3 and C4 | Lab | Routin | SLE | Expected: | | | | e | glomerulonephritis | 10/07/2019, Expires: | | | | | syndrome (HCC) | 10/06/2020 | | | | | 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, | | | | | | unspecified SLE type | | | | | | ([facility]) Persistent | | | | | | proteinuria | | + +------+--------+ + + | Complement, Total, | Lab | Routin | SLE | Expected: | | Serum (CH50) | | e | glomerulonephritis | 10/07/2019, Expires: | | | | | syndrome (HCC) | 10/06/2020 | | | | | 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, | | | | | | unspecified SLE type | | | | | | (HCC) Persistent | | | | | | proteinuria | | + +------+--------+ + + | Protein/Creatinine | Lab | Routin | SLE | Expected: | | Ratio, Urine | | e | glomerulonephritis | 10/07/2019, Expires: | | | | | syndrome (HCC) | 10/06/2020 | | | | | 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, | | | | | | unspecified SLE type | | | | | | (HCC) Persistent | | | | | | proteinuria | | + +------+--------+ + + | Basic Metabolic | Lab | Routin | SLE | Expected: | | Panel | | e | glomerulonephritis | 10/13/2019, Expires: | | | | | syndrome (HCC) | 10/06/2020 | | | | | 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, | | | | | | unspecified SLE type | | | | | | (HCC) Persistent | | | | | | proteinuria | | + +------+--------+ + + | CBC with | Lab | Routin | SLE | Expected: | | Differential | | e | glomerulonephritis | 10/13/2019, Expires: | | | | | syndrome (HCC) | 10/06/2020 | | | | | 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, | | | | | | unspecified SLE type | | | | | | (HCC) Persistent | | | | | | proteinuria | | + +------+--------+ + + | Basic Metabolic | Lab | Routin | SLE | Expected: | | Panel | | e | glomerulonephritis | 11/06/2019, Expires: | | | | | syndrome (HCC) | 10/06/2020 | | | | | 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, | | | | | | unspecified SLE type | | | | | | (HCC) Persistent | | | | | | proteinuria | | + +------+--------+ + + | CBC with | Lab | Routin | SLE | Expected: | | Differential | | e | glomerulonephritis | 11/06/2019, Expires: | | | | | syndrome (HCC) | 10/06/2020 | | | | | 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, | | | | | | unspecified SLE type | | | | | | (HCC) Persistent | | | | | | proteinuria | | + +------+--------+ + + | C3 and C4 | Lab | Routin | SLE | Expected: | | | | e | glomerulonephritis | 11/06/2019, Expires: | | | | | syndrome (HCC) | 10/06/2020 | | | | | 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, | | | | | | unspecified SLE type | | | | | | ([facility]) Persistent | | | | | | proteinuria | | + +------+--------+ + + | Urinalysis With | Lab | Routin | SLE | Expected: | | Microscopic | | e | glomerulonephritis | 11/06/2019, Expires: | | | | | syndrome (HCC) | 10/06/2020 | | | | | 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, | | | | | | unspecified SLE type | | | | | | ([facility]) Persistent | | | | | | proteinuria | | + +------+--------+ + + | Protein/Creatinine | Lab | Routin | SLE | Expected: | | Ratio, Urine | | e | glomerulonephritis | 11/06/2019, Expires: | | | | | syndrome (HCC) | 10/06/2020 | | | | | 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, | | | | | | unspecified SLE type | | | | | | (HCC) Persistent | | | | | | proteinuria | | + +------+--------+ + + | Lipid Panel | Lab | Routin | SLE | Expected: | | | | e | glomerulonephritis | 10/07/2019, Expires: | | | | | syndrome (HCC) | 10/06/2020 | | | | | 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, | | | | | | unspecified SLE type | | | | | | (HCC) Persistent | | | | | | proteinuria | | + +------+--------+ + + documented as of this encounter Visit Diagnoses + + | Diagnosis | + + | SLE glomerulonephritis syndrome (HCC) - Primary Systemic lupus erythematosus | + + | 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
--- OUTSIDE RECORDS SUMMARY | ~2019-10-07 | XMS | Encounter Summary ---
Demographics + + + | Address | [address] | | | [place] [address] | + + + | Home Phone | | + + + | Preferred Language | Unknown | + + + | Marital Status | | + + + | Holiness Affiliation | Unknown | + + + | Race | Unknown | + + + | Ethnic Group | Unknown | + + + Author + + + | Author | [facility] | | | and [place] | + + + | Organization | [facility] | | [...] Team Providers + +------+ + | Care Retirement Officer Name | Role | Phone | + +------+ + | Eric Bhatti DO | PCP | | + +------+ + Encounter Details +--------+---------+ + + + | Date | Type | Department | Care Team | Description | +--------+---------+ + + + | 10/06/ | Office | [facility] | Cristian Wallace MD | SLE | | 2019 | Visit | NEPHROLOGY [place] | [address] [facility] [address] | glomerulonephritis | | | | [address] | [address] [place], [place] | syndrome (HCC) | | | | [address] | [address] | (Primary Dx); | | | | [place], [place] | | Systemic lupus | | | | [address] | | erythematosus with | | | | [phone] | | tubulo-interstitial | | | | [...] sun DEXA SCAN: No need now (no [place] [facility] steroid use yet) COLONOSCOPY: N/A now DENTIST: every 6 months SHANK TAPPER/MAMMOGRAM: yearly Also: I stopped her Naproxen. 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 I [...] 2018 | Visit | | KITTY Hansen [address] | | | | | | [facility] | | | | | | [place] [address] | | | | | | [phone] | | | | | | | | +--------+---------+ + + + | 11/10/ | Office | Nephrology | Cristian Wallace MD | | | 2019 | Visit | | [address] [facility] | | | | | | [address] [place], [place] | | | | | | [address] | | | | | | | [...]
--- OUTSIDE RECORDS SUMMARY | ~2019-10-07 | XMS | Encounter Summary ---
Demographics + + + | Address | [address] | | | [place] [address] | + + + | Home Phone [...] Phone | + + +---------+ + | Cehryl Berman | ECON | Unknown | | + + +---------+ + Care Team Providers + +------+ + | Care Service Counter Cashier Name | Role | Phone | + +------+ + | Eric Bhatti DO | PCP | | + +------+ + Encounter Details +--------+ + + + + | Date | Type | Department | Care Team | Description | +--------+ + + + + | 06/25/ | Documentati | [facility] | Marcial, | | | 2019 | on | NEPHROLOGY [place] | Zara Waterman | | | | | [address] | Pressure Dispatcher | | | | | [address] [place] | | | | | | [address] | | | | | | [phone] | | | +--------+ + + + [...] 2019 | Visit | | KITTY Hansen [address] | | | | | | [facility] | | | | | | [place] [address] | | | | | | [phone] | | | | | | | | +--------+---------+ + + + | 11/10/ | Office | Nephrology | Cristian Wallace MD | | | 2019 | Visit | | [address] [facility] | | | | | | [address] [facility] [place] | | | | | | [address] | | | | | | | [...] 1.005 - 1.030 | | | | [place] | | | | | + [...]
--- OUTSIDE RECORDS SUMMARY | ~2019-10-07 | XMS | Encounter Summary ---
Demographics + + + | Address | [address] | | | [place] [address] | + + + | Home Phone | | + + + | Preferred Language | Unknown | + + + | Marital Status | | + + + | Christianity Affiliation | Unknown | + + + | Race | Unknown | + + + | Ethnic Group | Unknown | + + + Author + + + | Author | [facility] | | | and [place] | + + + | Organization | [facility] | | | [...] Team Providers + +------+ + | Care Price Accuracy Supervisor Name | Role | Phone | [...] + + | 08/04/ | Refill | [facility] | Felipa Stuart, | Pain | | 2019 | | [address]UMATOLOGY [address] | [address] | | | | | [address] | | | | | | [place] | | | | | | [address] | | | | | | [phone] | | | +--------+--------+ + + + [...] HOSPITAL | | | | | | [place] [address] | | | | | | [phone] | | | | | | | | +--------+---------+ + + + | 11/10/ | Office | Nephrology | Cristian Wallace MD | | | 2019 | Visit | | [address] [facility] | | | | | | [address] [place] | | | | | | [address] | | | | | | | | +--------+---------+ + + + documented as of this encounter Visit Diagnoses Not on filedocumented in this encounter"
--- OUTSIDE RECORDS SUMMARY | ~2019-10-07 | XMS | Encounter Summary ---
Demographics + + + | Address | [address] | | | [place] [address] | + + + | Home Phone | | + + + | Preferred Language | Unknown | + + + | Marital Status | | + + + | Congregation Affiliation | Unknown | + + + | Race | Unknown | + + + | Ethnic Group | Unknown | + + + Author + + + | Author | [facility] | | | and [place] | + + + | Organization | [facility] | | | [...] Team Providers + +------+ + | Care Rotary Peel Oven Tender Name | Role | Phone | [...] + + | 09/16/ | Telephone | [facility] | Tracie Brizuela, | Pain | | 2019 | | R[address]UM[address]OLOGY [address] | [address] | | | | | [address] | | | | | | [place] | | | | | | [address] | | | | | | [phone] | | | +--------+ + + + [...] | | | | | | [place] [address] | | | | | | [phone] | | | | | | | | +--------+---------+ + + + | 11/10/ | Office | Nephrology | Cristian Wallace MD | | | 2019 | Visit | | [address] [facility] | | | | | | [address] [place] | | | | | | [address] | | | | | | | | +--------+---------+ + + + documented as of this encounter Visit Diagnoses Not on filedocumented in this encounter"
--- OUTSIDE RECORDS SUMMARY | ~2019-10-07 | XMS | Encounter Summary ---
Demographics + + + | Address | [address] | | | [place] [address] | + + + | Home Phone | | + + + | Preferred Language | Unknown | + + + | Marital Status | | + + + | Pentecostalism Affiliation | Unknown | + + + | Race | Unknown | + + + | Ethnic Group | Unknown | + + + Author + + + | Author | [facility] | | | and [place] | + + + | Organization | [facility] | | | [...] Team Providers + +------+ + | Care Rug Shampooer Name | Role | Phone | + [...] + + | 08/04/ | Refill | [facility] | Felipa Stuart, | Pain | | 2019 | | RHEUMATOLOGY [address] | [address] | | | | | [address] | | | | | | [place] | | | | | | [address] | | | | | | [phone] | | | +--------+--------+ + + + [...] HOSPITAL | | | | | | [place] [address] | | | | | | [phone] | | | | | | | | +--------+---------+ + + + | 11/10/ | Office | Nephrology | Cristian Wallace MD | | | 2019 | Visit | | [address] [facility] | | | | | | [address] [place] | | | | | | [address] | | | | | | | | +--------+---------+ + + + documented as of this encounter Visit Diagnoses Not on filedocumented in this encounter"
--- OUTSIDE RECORDS SUMMARY | ~2019-10-07 | XMS | Encounter Summary ---
Demographics + + + | Address | [address] | | | [place] [address] | + + + | Home Phone | | + + + | Preferred Language | Unknown | + + + | Marital Status | | + + + | Latter-Day Affiliation | Unknown | + + + | Race | Unknown | + + + | Ethnic Group | Unknown | + + + Author + + + | Author | [facility] | | | and [place] | + + + | Organization | [facility] | | | and [...] Team Providers + +------+ + | Care Grab Jack Man Name | Role | Phone | + [...] + | 10/07/ | Telephone | [facility] | Cristian Wallace MD | Other (Patient call) | | 2019 | | NEPHROLOGY [place] | [address] [place] | | | | | [address] | [facility] [place] | | | | | [address] | [address] | | | | | [place], [place] | | | | | | [address] | | | | | | [phone] | | | +--------+ + + + [...] 2018 | Visit | | KITTY Hansen [address] | | | | | | [facility] | | | | | | [place] [address] | | | | | | [phone] | | | | | | | | +--------+---------+ + + + | 11/10/ | Office | Nephrology | Cristian Wallace MD | | | 2020 | Visit | | [address] [facility] | | | | | | [address] [place], [place] | | | | | | [address] | | | | | | | | +--------+---------+ + + + documented as of this encounter Visit Diagnoses Not on filedocumented in this encounter"
--- OUTSIDE RECORDS SUMMARY | ~2019-10-07 | XMS | Encounter Summary ---
Demographics + + + | Address | [address] | | | [place] [address] | + + + | Home Phone | | + + + | Preferred Language | Unknown | + + + | Marital Status | | + + + | Alevism Affiliation | Unknown | + + + | Race | Unknown | + + + | Ethnic Group | Unknown | + + + Author + + + | Author | [facility] | | | and [place] | + + + | Organization | [facility] | | | [...] Team Providers + +------+ + | Care Embedded Software Architect Name | Role | Phone | + [...] | | | | | erythematosu | [place], | [address] | | | | | s ([facility]) | [place] | Phone: | | | | | | [address] | [phone] | | | | | | Phone: | Fax: | | | | | | [phone] | [phone] | | | | | | Fax: | | | | | | | [phone] | | +--------+--------+ + + + + Encounter Details +--------+---------+ + + + | Date | Type | Department | Care Team | Description | +--------+---------+ + + + | 06/30/ | Office | [facility] | Cristian Wallace MD | Lupus nephritis, | | 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 | | | | [address] | [facility] [place] | ([facility]); Persistent | | | | [address] | [address] | proteinuria; | | | | [place], [place] | | Microscopic | | | | [address] | | hematuria; Other | | | | [phone] | | neutropenia ([facility]) | +--------+---------+ + + + Social History [...] sun DEXA SCAN: No need now (no skilled nursing steroid use) COLONOSCOPY: N/A now DENTIST: every 6 months DICE DEALER/MAMMOGRAM: yearly Also: I decreased her Myfortic to [...] She has history of lupus nephritis and RESOLUTE PROFESSIONAL lupus. She had a RESOLUTE PROFESSIONAL lupus flare in 2014, improved with a [...] sun DEXA SCAN: No need now (no skilled nursing steroid use) COLONOSCOPY: N/A now DENTIST: every 6 months DICE DEALER/MAMMOGRAM: yearly Also: I decreased her Myfortic to [...] or concerns. Truly yours, Cristian Wallace MD [facility] documented in this enco unter Plan [...] HOSPITAL | | | | | | [facility] [place] [place] [address] | | | | | | [phone] | | | | | | | | +--------+---------+ + + + | 11/10/ | Office | Nephrology | Cristian Wallace MD | | | 2019 | Visit | | [address] [facility] | | | | | | [address] [place] | | | | | | [address] | | | | | | | [...]
--- OUTSIDE RECORDS SUMMARY | ~2019-10-07 | XMS | Encounter Summary ---
Demographics + + + | Address | [address] | | | [place] [address] | + + + | Home Phone | | + + + | Preferred Language | Unknown | + + + | Marital Status | | + + + | Worship Affiliation | Unknown | + + + | Race | Unknown | + + + | Ethnic Group | Unknown | + + + Author + + + | Author | [facility] | | | and [place] | + + + | Organization | [facility] | | | and [...] Team Providers + +------+ + | Care Setter Juice Packaging Machines Name | Role | Phone | + [...] | lupus | [address] | [place] | | | | | erythematosu | [place], | [address] | | | | | s (HCC) | [place] | Phone: | | | | | Glomerular | [address] | [phone] | | | | | disease in | Phone: | Fax: | | | | | systemic | [phone] | [phone] | | | | | lupus | Fax: | | | | | | erythematosu | [phone] | | | | | | s (HCC) | | | + +--------+ + + + + Encounter Details +--------+---------+ + + + | Date | Type | Department | Care Team | Description | +--------+---------+ + + + | 08/25/ | Office | [facility] | Genevieve Hudson | SLE | | 2019 | Visit | [address]ATOLOGY [address] | [address]ITTY [address] | glomerulonephritis | | | | [address] | syndrome (HCC) | | | | [place], [place] | [place] [address] | (Primary Dx); High | | | | [address] | [phone] | risk medication use; | | | | [phone] | | General counselling | | | [...] encounter Patient Instructions Patient Instructions Marco Blair, Eligibility And Occupancy Interviewer - 08/25/2019 2:10 PM PDTWe hop e that you have experienced exceptional care today and that you found our service to be cour teous and helpful. If you have any questions or need medication refills you can send us a message/request u 4meee or call our office at [phone]. To reach Zainab RIOS use ext [phone] To reach Marco RIOS use ext 6978 If you are unable to reach a [...] can also look at your results on [employer] If you are experiencing an emergency, please [...] in 2011 in [place] then transferred to [facility] for [facility] . PT reports in middle school [...] September 2013, when she established care at [facility], both CellCept and HCQ were restarted but [...] SEDRATE Imaging: Laboratory results were [facility] as well as chart notes [...] e YES Immunologic disorders Anti-DNA Antibody to [place] DNA in abnormal titer [place] Anti-Sm Presence [...] uremia, and Susie's syndrome YES Renal Urine wxwzsfn-wy-ftgrtqcpkj ratio (or 24-hour urine protein) representing 500 [...] treatment plan. Patient understands that treatment is retirement and if patient fails to continue regimen [...] is both accurate and complete. Dictation software [employer]/dictation services used, which may contain error for [...] 2018 | Visit | | KITTY Hansen [address] | | | | | | [facility] | | | | | | [place] [address] | | | | | | [phone] | | | | | | | | +--------+---------+ + + + | 11/10/ | Office | Nephrology | Cristian Wallace MD | | | 2019 | Visit | | [address] [facility] | | | | | | [address] [place], [place] | | | | | | [address] | | | | | | | [...]
--- OUTSIDE RECORDS SUMMARY | ~2019-10-07 | XMS | Clinical Summary ---
Demographics + + + | Address | [address] | | | [place] [address] | + + + | Home Phone | | + + + | Preferred Language | Unknown | + + + | Marital Status | Single | + + + | Methodist Affiliation | Unknown | + + + | Race | Unknown | + + + | Ethnic Group | Unknown | + + + Author + + + | Author | [facility] (Historical as of | | | 06-21-19) | + + + | Organization | [facility] (Historical as of | | | 06-21-19) [...] Team Providers + +------+ + | Care Salesperson Sewing Machines Name | Role | Phone | [...] +---------+--------+ +------+-------+---------+ | REGENCE | BLUE | [id number] | | | | | | CROSS [...] | Self | [birth year] | Home: | [address] [place] [address] [address] | | [address] | al/Rom | | 1995 | [phone] | [address] [place] | | | maría | | | [phone] | [phone] | + +--------+ +--------+ + +"
--- OUTSIDE RECORDS SUMMARY | ~2019-10-07 | XMS | Encounter Summary ---
Demographics + + + | Address | [address] | | | [place] [address] | + + + | Home Phone | | + + + | Preferred Language | Unknown | + + + | Marital Status | | + + + | Restorationism Affiliation | Unknown | + + + | Race | Unknown | + + + | Ethnic Group | Unknown | + + + Author + + + | Author | [facility] | | | and [place] | + + + | Organization | [facility] | | | [...] Team Providers + +------+ + | Care Light Bulb Tester Name | Role | Phone | + [...] + + | 06/30/ | Documentati | [facility] | Marcial, | Results (06/26/19) | | 2019 | on | NEPHROLOGY [place] | [facility] | | | | | [address] | Special Technical Operations Officer | | | | | [address] | | | | | | [place] | | | | | | [address] | | | | | | [phone] | | | +--------+ + + + [...] W | | | | | | [facility] | | | | | | [place] [address] | | | | | | [phone] | | | | | | | | +--------+---------+ + + + | 11/10/ | Office | Nephrology | Cristian Wallace MD | | | 2019 | Visit | | [address] [facility] | | | | | | [address] [place] | | | | | | [address] | | | | | | | [...] 1.005 - 1.030 | | | | [place] | | | | | + [...]
--- OUTSIDE RECORDS SUMMARY | ~2019-10-07 | XMS | Encounter Summary ---
Demographics + + + | Address | [address] | | | [place] [address] | + + + | Home Phone [...] + + + | Author | [facility] | | | and [place] | + + + | Organization | [facility] | | [...] Team Providers + +------+ + | Care Kingsbury Machine Operator Name | Role | Phone [...] + + | 09/26/ | Telephone | [facility] | Cristian Wallace MD | Other (Appointment | | 2019 | | NEPHROLOGY [place] | [address] [place] | reminder call ) | | | | [address] | [address] [place], [place] | | | | | [address] | [address] | | | | | [place], [place] | | | | | | [address] | | | | | | [phone] | | | +--------+ + + + [...] 2019 | Visit | | KITTY Hansen [address] | | | | | | [facility] | | | | | | [place] [address] | | | | | | [phone] | | | | | | | | +--------+---------+ + + + | 11/10/ | Office | Nephrology | Cristian Wallace MD | | | 2019 | Visit | | [address] [facility] | | | | | | [address] [facility] [place] | | | | | | [address] | | | | | | | | +--------+---------+ + + + documented as of this encounter Visit Diagnoses Not on filedocumented in this encounter"
--- OUTSIDE RECORDS SUMMARY | ~2019-10-07 | XMS | Encounter Summary ---
Demographics + + + | Address | [address] | | | [place] [address] | + + + | Home Phone | | + + + | Preferred Language | Unknown | + + + | Marital Status | | + + + | Judaism Affiliation | Unknown | + + + [...] + +------+ + | Care Director Of Teacher Education Name | Role | Phone | + [...] + + | 09/17/ | Telephone | [facility] | Felipa Stuart, | Pain | | 2019 | | RHEUMATOLOGY [address] | [address] | | | | | [address] | | | | | | [place] | | | | | | [address] | | | | | | [phone] | | | +--------+ + + + [...] HOSPITAL | | | | | | [place] [address] | | | | | | [phone] | | | | | | | | +--------+---------+ + + + | 11/10/ | Office | Nephrology | Cristian Wallace MD | | | 2019 | Visit | | [address] [facility] | | | | | | [address] [place] | | | | | | [address] | | | | | | | | +--------+---------+ + + + documented as of this encounter Visit Diagnoses Not on filedocumented in this encounter"
--- OUTSIDE RECORDS SUMMARY | ~2019-10-07 | XMS | Encounter Summary ---
Demographics + + + | Address | [address] | | | [place] [address] | + + + | Home Phone | | + + + | Preferred Language | Unknown | + + + | Marital Status | | + + + | Amish Affiliation | Unknown | + + + | Race | Unknown | + + + | Ethnic Group | Unknown | + + + Author + + + | Author | [facility] | | | and [place] | + + + | Organization | [facility] | | | [...] Team Providers + +------+ + | Care Bottle Blower Name | Role | Phone | + +------+ + | Eric Bhatti DO | PCP | | + +------+ + Encounter Details +--------+ + + + + | Date | Type | Department | Care Team | Description | +--------+ + + + + | 10/06/ | Orders Only | [facility] | Cristian Wallace MD | SLE | | 2019 | | NEPHROLOGY [place] | [address] [place] | glomerulonephritis | | | | [address] | [address] [place], [place] | syndrome (HCC) | | | | [address] | [address] | (Primary Dx); | | | | [place], [place] | | 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 | | | | [...] 2019 | Visit | | KITTY Hansen [address] | | | | | | [facility] | | | | | | [place] [address] | | | | | | [phone] | | | | | | | | +--------+---------+ + + + | 11/10/ | Office | Nephrology | Cristian Wallace MD | | | 2019 | Visit | | [address] [facility] | | | | | | [address] [place] | | | | | | [address] | | | | | | | [...] | | | | | | (FORMERLY [facility]) Persistent | | | | | | [...] | | | | | | ([facility]) Persistent | | | | | | [...] | | | | | | ([facility]) Persistent | | | | | | [...]
--- OUTSIDE RECORDS SUMMARY | ~2019-10-07 | XMS | Encounter Summary ---
Demographics + + + | Address | [address] | | | [place] [address] | + + + | Home Phone | | + + + | Preferred Language | Unknown | + + + | Marital Status | | + + + | Jain Affiliation | Unknown | + + + [...] Team Providers + +------+ + | Care Administrative Staff Supervisor Name | Role | Phone | + +------+ + | Eric Bhatti DO | PCP | | + +------+ + Encounter Details +--------+ + + + + | Date | Type | Department | Care Team | Description | +--------+ + + + + | 06/24/ | Orders Only | [facility] | Cristian Wallace MD | Proteinuria, | | 2018 | | NEPHROLOGY [place] | [address] [place] | unspecified type | | | | [address] [place] | [address] [place], [place] | (Primary Dx); 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
--- OUTSIDE RECORDS SUMMARY | ~2019-10-07 | XMS | Encounter Summary ---
Demographics + + + | Address | [address] | | | [place] [address] | + + + | Home Phone | | + + + | Preferred Language | Unknown | + + + | Marital Status | | + + + | Scientology Affiliation | Unknown | + + + [...] Team Providers + +------+ + | Care Ict Trainer Name | Role | Phone | + [...] + + | 07/30/ | Refill | [facility] | Bianca Cardona | Medication Refill | | 2018 | | [address] | MD Juve [address] | (HCQ) | | | | [address] | [address] | | | | | [place], [place] | [place] [address] | | | | | [address] | [phone] | | | | | [phone] | | | +--------+--------+ + + + [...] 2018 | Visit | | KITTY Hansen [address] | | | | | | [facility] | | | | | | [place] [address] | | | | | | [phone] | | | | | | | | +--------+---------+ + + + | 11/10/ | Office | Nephrology | Cristian Wallace MD | | | 2020 | Visit | | [address] [facility] [place] | | | | | | [address] [place], [place] | | | | | | [address] | | | | | | | | +--------+---------+ + + + documented as of this encounter Visit Diagnoses Not on filedocumented in this encounter"
--- OUTSIDE RECORDS SUMMARY | ~2019-10-07 | XMS | Encounter Summary ---
Demographics + + + | Address | [address] | | | [place] [address] | + + + | Home Phone [...] Team Providers + +------+ + | Care Health Information Systems Technician Name | Role | Phone | + [...] + + | 08/20/ | Telephone | [facility] | Marcial, | Other (Urine | | 2019 | | NEPHROLOGY [place] | Zara Waterman | concerns) | | | | [address] [place] | Drop Wirer | | | | | [address] [place], [place] | | | | | | [address] | | | | | | [phone] | | | +--------+ + + + [...] 2018 | Visit | | KITTY Hansen [address] | | | | | | [facility] | | | | | | [place] [address] | | | | | | [phone] | | | | | | | | +--------+---------+ + + + | 11/10/ | Office | Nephrology | Cristian Wallace MD | | | 2019 | Visit | | [address] [facility] | | | | | | [address] [place] | | | | | | [address] | | | | | | | | +--------+---------+ + + + documented as of this encounter Visit Diagnoses Not on filedocumented in this encounter"
--- OUTSIDE RECORDS SUMMARY | ~2019-10-07 | XMS | Encounter Summary ---
Demographics + + + | Address | [address] | | | [place] [address] | + + + | Home Phone | | + + + | Preferred Language | Unknown | + + + | Marital Status | | + + + | Oriental Orthodox Affiliation | Unknown | + + + | Race | Unknown | + + + | Ethnic Group | Unknown | + + + Author + + + | Author | [facility] | | | and [place] | + + + | Organization | [facility] | | | [...] Team Providers + +------+ + | Care Journeyman Tool And Die Maker Name | Role | Phone | + +------+ + | Eric Bhatti DO | PCP | | + +------+ + Encounter Details +--------+ + + + + | Date | Type | Department | Care Team | Description | +--------+ + + + + | 07/01/ | Orders Only | 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
--- OUTSIDE RECORDS SUMMARY | ~2019-10-07 | XMS | Encounter Summary ---
Demographics + + + | Address | [address] | | | [place] [address] | + + + | Home Phone | | + + + | Preferred Language | Unknown | + + + | Marital Status | | + + + | Church Affiliation | Unknown | + + + | Race | Unknown | + + + | Ethnic Group | Unknown | + + + Author + + + | Author | [facility] | | | and [place] | + + + | Organization | [facility] [...] Team Providers + +------+ + | Care Taker Away Name | Role | Phone | + [...] + + | 10/06/ | Documentati | [facility] | Marcial, | Results (10/01/19) | | 2019 | on | NEPHROLOGY [place] | [facility] | | | | | [address] | Plastics Supervisor | | | | | [address] | | | | | | [place], [place] | | | | | | [address] | | | | | | [phone] | | | +--------+ + + + [...] 2018 | Visit | | KITTY Hansen [address] | | | | | | [facility] | | | | | | [place] [address] | | | | | | [phone] | | | | | | | | +--------+---------+ + + + | 11/10/ | Office | Nephrology | Cristian Wallace MD | | | 2019 | Visit | | [address] [facility] | | | | | | [address] [place] | | | | | | [address] | | | | | | | [...] 1.001 - 1.030 | | | | [place] | | | | | + + [...]
--- OUTSIDE RECORDS SUMMARY | ~2019-10-07 | XMS | Clinical Summary ---
Demographics + + + | Address | [address] | | | [place] [address] | + + + | Home Phone | | + + + | Preferred Language | Unknown | + + + | Marital Status | | + + + | Spiritism Affiliation | Unknown | + + + | Race | Unknown | + + + | Ethnic Group | Unknown | + + + Author + + + | Author | [facility] | | | and [place] | + + + | Organization | [facility] | [...] Team Providers + +------+ + | Care Ore Digger Name | Role | Phone | + [...] will need to be seen by an executive communications manager | | at least once a year. [...] Anti-DNA | | | | Antibody to [place] DNA in abnormal titer [place] | | [...] | | Susie's syndrome YES Renal Urine xvlgyzv-cc-cqdskvioee ratio | | (or 24-hour urine protein) [...] Anti-DNA | | | | Antibody to [place] DNA in abnormal titer [place]Anti-Sm | | [...] Susie's syndrome | | YES Renal Urine fwlqcma-zx-bqxthnindg ratio (or 24-hour urine | | protein) [...] Patient understands that treatment is | | long-term and if patient fails to continue regimen [...] | | | | | | neutropenia ([facility]); | | | | | | High risk medication | | | | | | use; | | | | | | Immunosuppressed | | | | | | status ([facility]); | | | | | | 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 | | | | | | ([facility]); General | | | | | | counselling and | | | | | | advice on | | | | | | contraception | +--------+ + + + + | 10/06/ | Orders Only | Nephrology | Cristian Wallace MD | 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[facility]) | | | | | | (Primary Dx); | | | | | | 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, | | | | | | unspecified SLE type | | | | | | ([facility]); Persistent | | | | | | proteinuria | +--------+ + + + + | 10/06/ | Documentati | Nephrology | Marcial, | Results (10/01/19) | | 2019 | on | | Zara Waterman | | | | | | Remote Pilot Operator | | +--------+ + + + + | 09/26/ | Telephone | Nephrology | Cristian Wallace MD | Other (Appointment | | 2018 | | | | reminder call ) | +--------+ + + + + | 09/17/ | Telephone | Rheumatology | Felipa Stuart, | Pain | | 2018 | | | NEON SIGN SERVICER | | +--------+ + + + + [...] | concerns) | | | | | Remote Pilot Operator | | +--------+ + + + + | 08/04/ | Refill | Rheumatology | Felipa Stuart, | Pain | | 2018 | | | NEON SIGN SERVICER | | +--------+ + + + + [...] SLE | | 2018 | | | Primary School Teacher Librarian | glomerulonephritis | | | | | [...] | | | | | [place] [address] | | | | | | [phone] | | | | | | | | +--------+---------+ + + + | 11/10/ | Office | Nephrology | Cristian Wallace MD | | | 2019 | Visit | | [address] | | | | | | [address] [place] | | | | | | [address] | | | | | | | [...] | | | | PDT | syndrome ([facility]) | results section. | + +--------+ + + + | SEDIMENTATION RATE | Routin | 07/21/2019 | SLE | Results for this | | | e | 3:01 PM | glomerulonephritis | procedure are in the | | | | PDT | syndrome ([facility]) | results section. | + +--------+ + + + | C-REACTIVE PROTEIN | Routin | 07/21/2019 | SLE | Results for this | | | e | 3:01 PM | glomerulonephritis | procedure are in the | | | | PDT | syndrome ([facility]) | results section. | + +--------+ + + + | DNA DOUBLE-STRANDED | Routin | 07/21/2019 | SLE | Results for this | | AB, IGG | e | 3:01 PM | glomerulonephritis | procedure are in the | | | | PDT | syndrome ([facility]) | results section. | + +--------+ + + + | MARCO, IFA | Routin | 07/21/2019 | SLE | Results for this | | | e | 3:01 PM | glomerulonephritis | procedure are in the | | | | PDT | syndrome ([facility]) | results section. | + +--------+ + + + | CISSE AB, IGG | Routin | 07/21/2019 | SLE | Results for this | | | e | 3:01 PM | glomerulonephritis | procedure are in the | | | | PDT | syndrome ([facility]) | results section. | + +--------+ + + + | C3 AND C4 | Routin | 07/21/2019 | SLE | Results for this | | | e | 3:01 PM | glomerulonephritis | procedure are in the | | | | PDT | syndrome ([facility]) | results section. | [...] | | | | PDT | syndrome ([facility]) | results section. | [...] 1.001 - 1.030 | | | | [place] | | | | | + + [...] | | | | | validated by [employer] | | | | | | [employer] This | | | | | [...] by | | | | | | [employer] | | | | | | [employer].Borderline/Equivocal | | | | | | RF results warrant | | | | | | redraw and retestingto | | | | | | confirm.Testing | | | | | | performed at [employer] | | | | | | [employer], [address], [facility] | | | | | | [facility],[place], [place] | | | | | | [phone]. | | | | + + + + + + + + | Specimen | + + | Blood | + + + + + + + | Performing | Address | City/State/[facility] | Phone Number | | Organization | | | | + + + + + | REFERENCE LAB | [address] [place] [address] | [place] [address] | [phone] | | [facility] | Blvd. | | | | LABORATORY | | | | + + + + + | REFERENCE LAB | [address] [place] [address] | [place] [address] | | | [facility] | Blvd. | [...] | | | | | | Sm, BUS MECHANIC, SCL-70, | | | | | | [...] Dot | | | | | | Sp100,[id number] | | | | | | Primary [...] | | | | | | at [facility], [address] | | | | | | [place] | | | | | | [address] | | | | + + + + + + + + | Specimen | + + | | + + + + + + + | Performing | Address | City/State/Zipcode | Phone Number | | Organization | | | | + + + + + | REFERENCE LAB | [address] | [place] [address] | [phone] | | [facility] | Blvd. | | | | LABORATORY | | | | + + + + + | REFERENCE LAB | [address] [facility] | [place] [address] | | | [facility] | Blvd. | [...] [place] | | | | | | [address] | | | | + + + + + + + + | Specimen | + + | Blood | + + + + + + + | Performing | Address | City/State/Zipcode | Phone Number | | Organization | | | | + + + + + | REFERENCE LAB | [address] [place] [address] | [place] [address] | [phone] | | [facility] | Blvd. | | | | LABORATORY | | | | + + + + + | REFERENCE LAB | [address] [facility] | [place] [address] | | | [facility] | Blvd. | [...] | | | | | | by [facility], [address] [place] [address] | | | | | | [place] | | | | | | [address] | | | | + + + + + + + + | Specimen | + + | Blood | + + + + + + + | Performing | Address | City/State/Zipcode | Phone Number | | Organization | | | | + + + + + | REFERENCE LAB | [address] [facility] | [place] [address] | [phone] | | [facility] | Blvd. | | | | LABORATORY | | | | + + + + + | REFERENCE LAB | [address] [facility] | [place] [address] | | | [facility] | Blvd. | [...] | | | | | performed at [facility], [address] | | | | | | [facility] | | | | | | [place] [address] | | | | + + + + + + + + | Specimen | + + | Blood | + + + + + + + | Performing | Address | City/State/Zipcode | Phone Number | | Organization | | | | + + + + + | REFERENCE LAB | [address] [place] [address] | [place] [address] | [phone] | | [facility] | Blvd. | | | | LABORATORY | | | | + + + + + | REFERENCE LAB | [address] [place] [address] | [place] [address] | | | [facility] | Blvd. | [...] | | | | | | Sm, BUS MECHANIC, SCL-70, | | | | | | [...] Dot | | | | | | Sp100,z71-ltraqo | | | | | | Primary [...] + + + + + + | BUS MECHANIC | 0.4 | 0.0 - 0.9 AI [...] | | | | | | | ---------BUS MECHANIC | | | | | | | [...] | | | | | | at [facility], [address] | | | | | | [place] | | | | | | [address] | | | | + + + + + + + + | Specimen | + + | | + + + + + + + | Performing | Address | City/State/Zipcode | Phone Number | | Organization | | | | + + + + + | REFERENCE LAB | [address] [place] [address] | [place] [address] | [phone] | | [facility] | Blvd. | | | | LABORATORY | | | | + + + + + | REFERENCE LAB | [address] [place] [address] | [place] [address] | | | [facility] | Blvd. | [...] | | | COMPLEMENT | performed at [facility];[address] | | LAB | | | | [place] | | [facility] | | | | Blvd;[place] [address] | | LABORATORY | | + + + + + + + + | Specimen | + + | Blood | + + + + + + + | Performing | Address | City/State/Zipcode | Phone Number | | Organization | | | | + + + + + | REFERENCE LAB | [address] [facility] | [place] [address] | [phone] | | [facility] | Blvd. | | | | LABORATORY | | | | + + + + + | REFERENCE LAB | [address] [facility] | [place] [address] | | | [facility] | Blvd. | [...] | | | | | performed at [facility];[address] | | | | | | [facility] | | | | | | Blvd;[place] [address] | | | | | | | | | | + + + + + + + + | Specimen | + + | Blood | + + + + + + + | Performing | Address | City/State/Zipcode | Phone Number | | Organization | | | | + + + + + | REFERENCE LAB | [address] [facility] | [place] [address] | [phone] | | [facility] | Blvd. | | | | LABORATORY | | | | + + + + + | REFERENCE LAB | [address] [facility] | [place] [address] | | | [facility] | Blvd. | [...] | | | ANTIBODY | performed at [facility], [address] | | LAB | | | | [facility] | | [facility] | | | | [place] [address] | | LABORATORY | | + + + + + + + + | Specimen | + + | Blood | + + + + + + + | Performing | Address | City/State/Zipcode | Phone Number | | Organization | | | | + + + + + | REFERENCE LAB | [address] [facility] | [place] [address] | [phone] | | [facility] | Blvd. | | | | LABORATORY | | | | + + + + + | REFERENCE LAB | [address] [facility] | [place] [address] | | | [facility] | Blvd. | [...] REFERENCE | | | | performed at [facility];[address] | | LAB | | | | [place] | | [facility] | | | | [place]vd;[place] [address] | | LABORATORY | | + + + + + + + + | Specimen | + + | Blood | + + + + + + + | Performing | Address | City/State/Zipcode | Phone Number | | Organization | | | | + + + + + | REFERENCE LAB | [address] [place] [address] | [place] [address] | [phone] | | [facility] | Blvd. | | | | LABORATORY | | | | + + + + + | REFERENCE LAB | [address] [place] [address] | [place] [address] | | | [facility] | Blvd. | [...] [place] | | | | | | [address] | | | | + + + + + + + + | Specimen | + + | Blood | + + + + + + + | Performing | Address | City/State/Zipcode | Phone Number | | Organization | | | | + + + + + | REFERENCE LAB | [address] [place] [address] | [place] [address] | [phone] | | [facility] | Blvd. | | | | LABORATORY | | | | + + + + + | REFERENCE LAB | [address] [place] [address] | [place] [address] | | | [facility] | Blvd. | [...] LAB | | | Total | TCL;[address] [facility] | | [facility] | | | | Blvd;[place] [address] | | LABORATORY | | + + + + + + + + | Specimen | + + | Blood | + + + + + + + | Performing | Address | City/State/Zipcode | Phone Number | | Organization | | | | + + + + + | REFERENCE LAB | [address] [facility] | [place] [address] | [phone] | | [facility] | Blvd. | | | | LABORATORY | | | | + + + + + | REFERENCE LAB | [address] [facility] | [place] [address] | | | [facility] | Blvd. | | | [...] | LAB | | | | TCL;[address] [facility] | | [facility] | | | | Blvd;[place] [address] | | LABORATORY | | + + + + + + + + | Specimen | + + | Blood | + + + + + + + | Performing | Address | City/State/Zipcode | Phone Number | | Organization | | | | + + + + + | REFERENCE LAB | [address] [place] [address] | [place] [address] | [phone] | | [facility] | Blvd. | | | | LABORATORY | | | | + + + + + | REFERENCE LAB | [address] [place] [address] | [place] [address] | | | [facility] | Blvd. | [...] | | | Absolute | performed at [facility];[address] | K/uL | LAB | | | | [place] | | [facility] | | | | Blvd;[place] [address] | | LABORATORY | | + + + + + + + + | Specimen | + + | Blood | + + + + + + + | Performing | Address | City/State/Zipcode | Phone Number | | Organization | | | | + + + + + | REFERENCE LAB | [address] [place] [address] | [place] [address] | [phone] | | [facility] | Blvd. | | | | LABORATORY | | | | + + + + + | REFERENCE LAB | [address] [place] [address] | [place] [address] | | | [facility] | Blvd. | [...] REFERENCE | | | | performed at [facility];[address] | | LAB | | | | [place] | | [facility] | | | | [place]vd;[place] [address] | | LABORATORY | | + + + + + + + + | Specimen | + + | Blood | + + + + + + + | Performing | Address | City/State/Zipcode | Phone Number | | Organization | | | | + + + + + | REFERENCE LAB | [address] [facility] | [place] [address] | [phone] | | [facility] | Blvd. | | | | LABORATORY | | | | + + + + + | REFERENCE LAB | [address] [facility] | [place] [address] | | | [facility] | Blvd. | [...] | | | | | performed at [facility];[address] | | | | | | [facility] | | | | | | [facility];[place] [address] | | | | | | | | | | + + + + + + + + | Specimen | + + | Blood | + + + + + + + | Performing | Address | City/State/Zipcode | Phone Number | | Organization | | | | + + + + + | REFERENCE LAB | [address] [place] [address] [place] | [place] [address] | [phone] | | [facility] | Blvd. | | | | LABORATORY | | | | + + + + + | REFERENCE LAB | [address] [place] [address] | [place] [address] | | | [facility] | Blvd. | [...] +-------+--------+ +--------+-------+---------+------+ | BCBS | BCBS | [id number] | 11/05/19 | | | PPO | | | FEDERA | | 19-Pre | | | | | | L FEP | | sent | | | | +-------+--------+ +--------+-------+---------+------+ | AETNA | AETNA | [id number] | | | | PPO | | [...] Flaca | al/Fam | | 1995 | [phone] | [address] [place] | | | maría | | | 3 (Home) | [phone] | + +--------+ +--------+ + + Advance Directives + + + + + | Type | Date Recorded | Patient | Explanation | | | | Food Crops Farm Hand | | + + + + + | Power of | | | | | Streetsweeper Operator | | | | + + + + + | Advance | | | | | Directive | | | | + + + + +
--- OUTSIDE RECORDS SUMMARY | ~2019-10-07 | XMS | Encounter Summary ---
Demographics + + + | Address | [address] | | | [place] [address] | + + + | Home Phone | | + + + | Preferred Language | Unknown | + + + | Marital Status | | + + + | Mormonism Affiliation | Unknown | + + + | Race | Unknown | + + + | Ethnic Group | Unknown | + + + Author + + + | Author | [facility] | | | and [place] | + + + | Organization | [facility] | | [...] Team Providers + +------+ + | Care Electrical Engineer Name | Role | Phone | [...] | lupus | [address] | [place] | | | | | erythematosu | [place], | [address] | | | | | s (HCC) | [place] | Phone: | | | | | Glomerular | [address] | [phone] | | | | | disease in | Phone: | Fax: | | | | | systemic | [phone] | [phone] | | | | | lupus | Fax: | | | | | | erythematosu | [phone] | | | | | | s (HCC) | | | + +--------+ + + + + Encounter Details +--------+---------+ + + + | Date | Type | Department | Care Team | Description | +--------+---------+ + + + | 07/21/ | Office | [facility] | Bianca Cardona | SLE | | 2019 | Visit | RHEUMATOLOGY [address] | MD [address] | glomerulonephritis | | | | [address] | [address] | syndrome (HCC) | | | | [place] | [place] [address] | (Primary Dx); High | | | | [address] | [phone] | risk medication use; | | | | [phone] | | General counselling | | | [...] encounter Patient Instructions Patient Instructions Stephany Sin, Supervisor Fusing Room - 07/21/2019 2:30 PM PDTWe hope t hat you have experienced exceptional care today and that you found our service to be courteo us and helpful. If you have any questions, you can send us a message/request using D2[employer] or call our o ffice at [phone]. To reach the Supervisor Fusing Room , dial msfcfvoel - [phone]- Stephany PASCAL If you are unable to [...] You can also review your results on Sting Communicationshart. If you are experiencing an emergency, please [...] with Lupus and RA in 2011 in [place] then transferred to [facility] for college. 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 She had a MANAGER DRUG lupus flare in 2014, improved with a [...] September 2013, when she established care at [facility], both CellCept and HCQ were restarted [...] Check TSH - Advised to see a title one teacher if this recurs and if the TSH [...] Diagnosis Date Anemia Lupus (systemic lupus erythematosus) ([facility]) 2011 Osteoarthritis Proteinuria Rheumatoid arthritis ([facility]) 2011 Past Surgical History: Procedure Laterality Date [...] Clarity, UA 06/23/2019 slightly cloudy Final Specific [place] 06/23/2019 1.026 1.005 - 1.030 Final pH, [...] treatment plan. Patient understands that treatment is terminal operations manager and if he/she fails to continue regimen , the disease has prop ensity to flare resulting in terminal operations manager consequences and functionality limitation. - CBC with [...] will need to be seen by an operative supervisor at least once a year. Other side [...] is both accurate and complete. Dictation software 360[employer]/dictation services used, which may contain error for [...] | | | | | [place] [address] | | | | | | [phone] | | | | | | | | +--------+---------+ + + + | 11/10/ | Office | Nephrology | Cristian Wallace MD | | | 2019 | Visit | | [address] [facility] | | | | | | [address] [place], [place] | | | | | | [address] | | | | | | | [...] | | | | | | by dotCloud, [facility] Adan | | | | | | [facility] | | | | | | [address] | | | | + + + + + + + + | Specimen | + + | Blood | + + + + + + + | Performing | Address | City/State/Zipcode | Phone Number | | Organization | | | | + + + + + | REFERENCE LAB | [address] | [place] [address] | [phone] | | [facility] | [place] | | | | LABORATORY | | | | + + + + + | REFERENCE LAB | [address] [facility] | [place] [address] | | | [facility] | Blvd. | [...] | | | | | validated by [employer] | | | | | | [employer] This | | | | | [...] by | | | | | | [employer] D[employer] | | | | | | Inc.Borderline/Equivocal | | | | | | RF results warrant | | | | | | redraw and retestingto | | | | | | confirm.Testing | | | | | | performed at [employer] | | | | | | [employer], [address] | | | | | | [facility] | | | | | | [address],[place], [place] | | | | | | [address]. | | | | + + + + + + + + | Specimen | + + | Blood | + + + + + + + | Performing | Address | City/State/Zipcode | Phone Number | | Organization | | | | + + + + + | REFERENCE LAB | [address] [place] [address] | [place] [address] | [phone] | | [facility] | Blvd. | | | | LABORATORY | | | | + + + + + | REFERENCE LAB | [address] [place] [address] | [place] [address] | | | [facility] | Blvd. | [...] | LAB | | | Total | TCL;[address] [facility] | | [facility] | | | | Blvd;[place] [address] | | LABORATORY | | + + + + + + + + | Specimen | + + | Blood | + + + + + + + | Performing | Address | City/State/Zipcode | Phone Number | | Organization | | | | + + + + + | REFERENCE LAB | [address] [facility] | [place] [address] | [phone] | | [facility] | Blvd. | | | | LABORATORY | | | | + + + + + | REFERENCE LAB | [address] [place] [address] | [place] [address] | | | [facility] | Blvd. | [...] | [facility] | | | | Blvd;[place] [address] | | LABORATORY | | + + + + + + + + | Specimen | + + | Blood | + + + + + + + | Performing | Address | City/State/Zipcode | Phone Number | | Organization | | | | + + + + + | REFERENCE LAB | [address] [place] [address] | [place] [address] | [phone] | | [facility] | Blvd. | | | | LABORATORY | | | | + + + + + | REFERENCE LAB | [address] [facility] | [place] [address] | | | [facility] | Blvd. | [...] | | | | | performed at [facility];[address] | | | | | | [address] | | | | | | [address];[place] [address] | | | | | | | | | | + + + + + + + + | Specimen | + + | Blood | + + + + + + + | Performing | Address | City/State/Zipcode | Phone Number | | Organization | | | | + + + + + | REFERENCE LAB | [address] [facility] | [place] [address] | [phone] | | [facility] | Blvd. | | | | LABORATORY | | | | + + + + + | REFERENCE LAB | [address] [facility] | [place] [address] | | | [facility] | Blvd. | [...] [place] | | | | | | [address] | | | | + + + + + + + + | Specimen | + + | Blood | + + + + + + + | Performing | Address | City/State/Zipcode | Phone Number | | Organization | | | | + + + + + | REFERENCE LAB | [address] [place] [address] | [place] [address] | [phone] | | [facility] | Blvd. | | | | LABORATORY | | | | + + + + + | REFERENCE LAB | [address] [place] [address] | [place] [address] | | | [facility] | Blvd. | [...] | | [facility] | | | | Blvd;[place] [address] | | LABORATORY | | + + + + + + + + | Specimen | + + | Blood | + + + + + + + | Performing | Address | City/State/Zipcode | Phone Number | | Organization | | | | + + + + + | REFERENCE LAB | [address] [place] [address] | [place] [address] | [phone] | | [facility] | Blvd. | | | | LABORATORY | | | | + + + + + | REFERENCE LAB | [address] [place] [address] | [place] [address] | | | [facility] | Blvd. | [...] | | | ANTIBODY | performed at [facility], [address] | | LAB | | | | [facility] | | [facility] | | | | [place] [address] | | LABORATORY | | + + + + + + + + | Specimen | + + | Blood | + + + + + + + | Performing | Address | City/State/Zipcode | Phone Number | | Organization | | | | + + + + + | REFERENCE LAB | [address] [facility] | [place] [address] | [phone] | | [facility] | Blvd. | | | | LABORATORY | | | | + + + + + | REFERENCE LAB | [address] [facility] | [place] [address] | | | [facility] | Blvd. | [...] W | | | | | | [facility] | | | | | | [place] [address] | | | | + + + + + + + + | Specimen | + + | Blood | + + + + + + + | Performing | Address | City/State/Zipcode | Phone Number | | Organization | | | | + + + + + | REFERENCE LAB | [address] [place], [place] [address] | [place] [address] | [phone] | | [facility] | Blvd. | | | | LABORATORY | | | | + + + + + | REFERENCE LAB | [address] | [place] [address] | | | [facility] | Blvd. | [...] at | | | | | | [facility], [address] | | | | | | [facility] [place] | | | | | | [address] | | | | + + + + + + + + | Specimen | + + | Blood | + + + + + + + | Performing | Address | City/State/Zipcode | Phone Number | | Organization | | | | + + + + + | REFERENCE LAB | [address] [facility] | [place] [address] | [phone] | | [facility] | Blvd. | | | | LABORATORY | | | | + + + + + | REFERENCE LAB | [address] [facility] | [place] [address] | | | [facility] | Blvd. | [...] [facility] | | | | Blvd;[place] [address] | | LABORATORY | | + + + + + + + + | Specimen | + + | Blood | + + + + + + + | Performing | Address | City/State/Zipcode | Phone Number | | Organization | | | | + + + + + | REFERENCE LAB | [address] [place] [address] | [place] [address] | [phone] | | [facility] | Blvd. | | | | LABORATORY | | | | + + + + + | REFERENCE LAB | [address] [place] [address] | [place] [address] | | | [facility] | Blvd. | [...] REFERENCE | | | | performed at [facility];[address] | | LAB | | | | [place] | | [facility] | | | | Blvd;[place] [address] | | LABORATORY | | + + + + + + + + | Specimen | + + | Blood | + + + + + + + | Performing | Address | City/State/Zipcode | Phone Number | | Organization | | | | + + + + + | REFERENCE LAB | [address] [place] [address] | [place] [address] | [phone] | | [facility] | Blvd. | | | | LABORATORY | | | | + + + + + | REFERENCE LAB | [address] [place] [address] | [place] [address] | | | [facility] | Blvd. | [...] | | | | | performed at [facility];[address] | | | | | | [facility] | | | | | | Blvd;[place] [address] | | | | | | | | | | + + + + + + + + | Specimen | + + | Blood | + + + + + + + | Performing | Address | City/State/Zipcode | Phone Number | | Organization | | | | + + + + + | REFERENCE LAB | [address] [facility] | [place] [address] | [phone] | | [facility] | Blvd. | | | | LABORATORY | | | | + + + + + | REFERENCE LAB | [address] [facility] | [place] [address] | | | [facility] | Blvd. | [...] | | | Absolute | performed at [facility];[address] | [address] | LAB | | | | [place] | | [facility] | | | | Blvd;[place] [address] | | LABORATORY | | + + + + + + + + | Specimen | + + | Blood | + + + + + + + | Performing | Address | City/State/Zipcode | Phone Number | | Organization | | | | + + + + + | REFERENCE LAB | [address] [facility] | [place] [address] | [phone] | | [facility] | Blvd. | | | | LABORATORY | | | | + + + + + | REFERENCE LAB | [address] | [place] [address] | | | [facility] | Blvd. | | | | LABORATORY [...]
--- OUTSIDE RECORDS SUMMARY | ~2019-10-07 | XMS | Encounter Summary ---
Demographics + + + | Address | [address] | | | [place] [address] | + + + | Home Phone | | + + + | Preferred Language | Unknown | + + + | Marital Status | | + + + | Taoist Affiliation | Unknown | + + + | Race | Unknown | + + + | Ethnic Group | Unknown | + + + Author + + + | Author | [facility] | | | and [place] | + + + | Organization | [facility] | | | [...] Team Providers + +------+ + | Care Physician Aide Name | Role | Phone | + +------+ + | Eric Bhatti DO | PCP | | + +------+ + Encounter Details +--------+ + + + + | Date | Type | Department | Care Team | Description | +--------+ + + + + | 06/25/ | Documentati | [facility] | Marcial, | | | 2019 | on | NEPHROLOGY DENIS | Zara Waterman | | | | | [address] | Mud Analysis Well Logging Operator | | | | | [address] [place] | | | | | | [address] | | | | | | [phone] | | | +--------+ + + + [...] 2019 | Visit | | KITTY Hansen [address] | | | | | | [facility] | | | | | | [place] [address] | | | | | | [phone] | | | | | | | | +--------+---------+ + + + | 11/10/ | Office | Nephrology | Cristian Wallace MD | | | 2019 | Visit | | [address] [facility] | | | | | | [address] [facility] [place] | | | | | | [address] | | | | | | | [...] 1.005 - 1.030 | | | | [place] | | | | | + [...]
[~2019-10-07 09:34] MED LIST changes: +LOSARTAN POTASS25 MG; +MYCOPHENOLIC A360 MG PO; +PREDNISONE5 MG PO
--- OUTSIDE RECORDS SUMMARY | 2019-10-07 09:36 | XMS ---
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 Primary Care Current ADMINISTRATION PHONE: Unknown OUTSIDE [facility] Primary Care Current PHONE: Unknown Comfort has no Care Guidelines for this patient. Care History Medical/Surgical 05/05/2019 [facility] - Patient is currently established with [facility]. If patient is seen in the ED during business hours. Please contact CHWs at [facility]. Care Recommendation: This patient has had 5 [...] providing care. E.D. VISIT COUNT (12 MO.) 4 [facility]. TOTAL 4 NOTE: Visits indicate total known visits. ED/UCC VISIT TRACKING (12 MO.) 10/07/2019 09:34 [facility] [place] TYPE: Emergency COMPLAINT: - PAIN 10/07/2019 03:59 [facility] [place] TYPE: [...] visits to display in this time frame [id number]
[2019-10-07] MEDS ORDERED: OXYCODONE HCL5 MG PO (14:07)
== END 2019-10-07 14:20 | disposition home or self-care (01) ==
LOC: ED 09:34
DX: M79.641 Pain in right hand (principal); M79.642 Pain in left hand; M06.9 Rheumatoid arthritis, unspecified; M32.9 Systemic lupus erythematosus, unspecified; Z88.0 Allergy status to penicillin; Z88.2 Allergy status to sulfonamides; Z88.5 Allergy status to narcotic agent; Z79.899 Other long term (current) drug therapy
CPT/HCPCS: 36415; 80053; 80061; 81001; 82570; 83605; 84156; 84703; 85025; 85651; 86140; 86160; 86162; 99283

== ENCOUNTER 2024-05-29 12:42 | Emergency (ER) | payer BC, OTHER ==
[~2024-05-29] VITALS: Ht 165.1 cm; Wt 90.8 kg
[~2024-05-29 12:42] MED LIST changes: +OXYCODONE HCL5 MG PO
[2024-05-29] MEDS ORDERED: BENLYSTA200 MG/1 M SQ (12:53)
[2024-05-29] MEDS ORDERED: PREDNISONE2.5 MG PO (12:53)
[2024-05-29] MEDS ORDERED: SODIUM CHLORIDE 0.9% 1,000 ML IV ONE (14:15)
[2024-05-29] MEDS ORDERED: ondansetron HCL 4 MG/2 ML VIAL IV ONE (14:15)
[2024-05-29] MEDS ORDERED: fentaNYL citrate 100 MCG/2 ML VIAL IV PRN (14:15)
[2024-05-29] MEDS ORDERED: methylPREDNISolone SOD SUCC 125 MG/2 ML VIAL IV ONE (14:15)
[2024-05-29 14:25] LABS: BASOPHILS 0.2 % (0-2); EOSINOPHILS 0.2 % (0-6); HEMATOCRIT 35.9 % (35.0-50.0); HEMOGLOBIN 12.3 g/dL (12.0-18.0); LYMPHOCYTES 23.7 % (24-44); MCH 30.8 (27-36); MCHC 34.3 g/dl (30-36); MCV 89.9 fl (81-99); MONOCYTES 2.1 % (0-12); NEUTROPHILS 73.8 % (39-80); PLATELET COUNT 308 K/uL (140-440); RDW 12.6 (10.5-15.0)
[2024-05-29 14:43] LABS: ALBUMIN 2.9 g/dL (3.4-5.0); ALBUMIN/GLOBULIN RATIO 0.73 (1.1-2.4); ANION GAP 14.9 (7-21); BILIRUBIN, TOTAL 0.2 ng/dL (0.2-1.0); BUN/CREATININE RATIO 12.5 (6.0-28.6); CALCIUM 8.3 mg/dL (8.5-10.1); CREATININE, SERUM 0.72 mg/dL (0.55-1.02); POTASSIUM 3.9 mmol/L (3.5-5.1); PROTEIN, TOTAL 6.9 g/dL (6.4-8.2)
[2024-05-29 15:32] LABS: ERYTHROCYTE SEDIMENTATION RATE 41
[2024-05-29] MEDS ORDERED: HYDROCODON-ACE1 EA11 PO (16:00)
[2024-05-29] MEDS ORDERED: PREDNISONE20 MG PO (16:00)
[2024-05-29] MEDS ORDERED: HYDROCODONE/ACETA 7.5/325 TAB PO ONE (16:15)
[2024-05-29 16:27] VITALS: BP 141/92
== END 2024-05-29 16:27 | disposition home or self-care (01) ==
LOC: ED 12:42
PROVIDERS: Emergency Medicine
DX: M25.562 Pain in left knee (principal); M25.552 Pain in left hip; M25.551 Pain in right hip; M25.511 Pain in right shoulder; Z79.52 Long term (current) use of systemic steroids; Z79.899 Other long term (current) drug therapy; Z88.2 Allergy status to sulfonamides; Z88.0 Allergy status to penicillin; Z88.5 Allergy status to narcotic agent
CPT/HCPCS: 36415; 80053; 84703; 85025; 85651; 86140; 96374; 96375; 99283-25; A9270; J2405; J2919; J3010; J7030

== ENCOUNTER 2024-07-27 10:54 | Emergency (ER) | payer BC, OTHER ==
[~2024-07-27] VITALS: Ht 165.1 cm; Wt 85.0 kg
[~2024-07-27 10:54] MED LIST changes: +BENLYSTA200 MG/1 M SQ; +HYDROCODON-ACE1 EA11 PO; +PREDNISONE2.5 MG PO
[2024-07-27] MEDS ORDERED: LOSARTAN POTASS25 MG PO (11:08)
[2024-07-27] MEDS ORDERED: methylPREDNISolone SOD SUCC 125 MG/2 ML VIAL IV ONE (11:15)
[2024-07-27] MEDS ORDERED: ondansetron HCL 4 MG/2 ML VIAL IV ONE (11:15)
[2024-07-27] MEDS ORDERED: SODIUM CHLORIDE 0.9% 1,000 ML IV PRN (11:15)
[2024-07-27] MEDS ORDERED: HYDROmorphone HCL 1 MG/ML SYR IV ONE (11:15)
[2024-07-27 11:17] LABS: BASOPHILS 0.3 % (0-2); EOSINOPHILS 0.5 % (0-6); HEMATOCRIT 37.5 % (35.0-50.0); HEMOGLOBIN 12.8 g/dL (12.0-18.0); LYMPHOCYTES 7.5 % (24-44); MCH 30.3 (27-36); MCHC 34.1 g/dl (30-36); MCV 88.6 fl (81-99); MONOCYTES 1.8 % (0-12); NEUTROPHILS 89.9 % (39-80); PLATELET COUNT 350 K/uL (140-440); RBC 4.23 M/ul (4.3-5.7); RDW 12.1 (10.5-15.0)
[2024-07-27 11:22] LABS: INR 1.03 (0.80-1.30); PROTIME 13.1 Sec (11.2-14.2)
[2024-07-27 11:24] LABS: PARTIAL THROMBOPLASTIN TIME 25.7 Sec (22.9-41.3)
[2024-07-27 11:34] LABS: ALBUMIN/GLOBULIN RATIO 0.77 (1.1-2.4); ALKALINE PHOSPHATASE 68 U/L (46-116); ALT (SGPT) 34 U/L (14-59); ANION GAP 15.1 (7-21); AST (SGOT) 37 U/L (15-37); BILIRUBIN, TOTAL 0.3 ng/dL (0.2-1.0); BUN/CREATININE RATIO 12.65 (6.0-28.6); CALCIUM 8.8 mg/dL (8.5-10.1); CARBON DIOXIDE 23 mmol/L (21-32); CHLORIDE 105 mmol/L (98-107); CREATININE, SERUM 0.79 mg/dL (0.55-1.02); GLOMERULAR FILTRATION RATE,EST 104 mL/min (>60); MAGNESIUM 1.6 mg/dL (1.8-2.4); POTASSIUM 4.1 mmol/L (3.5-5.1); PROTEIN, TOTAL 6.9 g/dL (6.4-8.2); UREA NITROGEN 10 mg/dL (7-18)
[2024-07-27] MEDS ORDERED: PREDNISONE20 MG PO (15:31)
[2024-07-27] MEDS ORDERED: ONDANSETRON ODT8 MG SL (15:31)
[2024-07-27] MEDS ORDERED: PERCOCET 5-3251 EACH PO (15:31)
[2024-07-27 15:43] VITALS: BP 147/90
--- NOTE | 2024-07-27 21:07 | EKG ---
[facility] [address] [facility] [place], [place] [address] Signed Normal sinus rhythm Minimal voltage criteria for LVH, may be normal variant ( R in aVL ) Borderline ECG No previous ECGs available Confirmed by Jimmie Kelly MD ([id number]) on 07/27/2024 9:07:30 PM Electronically Signed By: JIMMIE KELLY MD [id number]/27/[id number] PATIENT NAME: FELIXAMOR Electrocardiogram DATE OF : [birth year] PHYSICIAN: JIMMIE KELLY MD REPORT #: [id number] REPORT IS CONFIDENTIAL AND NOT TO BE RELEASED WITHOUT AUTHORIZATION
== END 2024-07-27 15:45 | disposition home or self-care (01) ==
LOC: ED 10:54
PROVIDERS: Emergency Medicine
DX: R07.9 Chest pain, unspecified (principal); Z88.0 Allergy status to penicillin; Z88.2 Allergy status to sulfonamides; Z88.5 Allergy status to narcotic agent; Z79.52 Long term (current) use of systemic steroids; Z79.899 Other long term (current) drug therapy
CPT/HCPCS: 36415; 71260; 80053; 83735; 83880; 84484; 84703; 85025; 85610; 85730; 93005; 93010; 99285-25; J1170; J2405; J2919; J7030

== ENCOUNTER 2024-08-15 14:00 | Emergency (ER) | payer BC, OTHER ==
[~2024-08-15] VITALS: Ht 165.1 cm; Wt 90.5 kg
[~2024-08-15 14:00] MED LIST changes: +LOSARTAN POTASS25 MG PO; +ONDANSETRON ODT8 MG SL; +PERCOCET 5-3251 EACH PO
[2024-08-15] MEDS ORDERED: HYDROXYCHLOROQ200 MG PO (14:33)
[2024-08-15 15:42] LABS: EOSINOPHILS 0.9 % (0-6); HEMATOCRIT 27.5 % (35.0-50.0); HEMOGLOBIN 9.6 g/dL (12.0-18.0); LYMPHOCYTES 25.3 % (24-44); MCH 30.9 (27-36); MCHC 34.9 g/dl (30-36); MCV 88.5 fl (81-99); MONOCYTES 3.4 % (0-12); NEUTROPHILS 69.4 % (39-80); PLATELET COUNT 410 K/uL (140-440); RBC 3.11 M/ul (4.3-5.7); RDW 12.2 (10.5-15.0)
[2024-08-15 15:56] LABS: ALBUMIN 2.7 g/dL (3.4-5.0); ALBUMIN/GLOBULIN RATIO 0.75 (1.1-2.4); ANION GAP 10.9 (7-21); BILIRUBIN, TOTAL 0.1 ng/dL (0.2-1.0); BUN/CREATININE RATIO 11.42 (6.0-28.6); CALCIUM 8.1 mg/dL (8.5-10.1); CREATININE, SERUM 0.7 mg/dL (0.55-1.02); POTASSIUM 3.9 mmol/L (3.5-5.1); PROTEIN, TOTAL 6.3 g/dL (6.4-8.2)
[2024-08-15 16:42] LABS: ERYTHROCYTE SEDIMENTATION RATE 53
[2024-08-15] MEDS ORDERED: predniSONE 20 MG TAB PO ONE ×2 (17:15→17:30)
[2024-08-15 17:35] VITALS: BP 133/68
== END 2024-08-15 17:35 | disposition home or self-care (01) ==
LOC: ED 14:00
PROVIDERS: Emergency Medicine
DX: M06.9 Rheumatoid arthritis, unspecified (principal); M32.9 Systemic lupus erythematosus, unspecified; Z88.2 Allergy status to sulfonamides; Z88.0 Allergy status to penicillin; Z88.5 Allergy status to narcotic agent; Z79.899 Other long term (current) drug therapy
CPT/HCPCS: 36415; 73630; 80053; 85025; 85651; 86140; 93971; 99284-25; J7512